=== PATIENT | male | born 1950 | race Caucasian/White ===

== ENCOUNTER 2017-02-25 03:29 | Inpatient (IN) | payer OTHER, MEDICAID ==
[2017-02-25] MEDS ORDERED: LASIX IVP ONE ×4 (03:44→04:31)
[2017-02-25] MEDS ORDERED: DUONEB 0.5 MG/3 MG NEB ONE (03:45)
[2017-02-25] MEDS ORDERED: ATIVAN INJ 2 MG VIAL ONE (04:12)
[2017-02-25] MEDS ORDERED: CARDIZEM INJ 50 MG VIAL ONE (04:18)
[2017-02-25] MEDS ORDERED: CARDIZEM INJ 125 MG VIAL ONE (04:19)
[2017-02-25] MEDS ORDERED: NS 100 ML IV 100 ML IV ONE ×2 (04:19→06:51)
[2017-02-25 04:25] VITALS: BMI 57.6
[2017-02-25] MEDS ORDERED: CARDIZEM INJ 50 MG VIAL IVP ONE ×2 (04:27→04:32)
[2017-02-25] MEDS ORDERED: ATIVAN INJ 2 MG VIAL IVP ONE (04:29)
--- NOTE | 2017-02-25 04:29 | RAD ---
EXAM: Chest X-ray INDICATION: Respiratory distress COMPARISION: Prior exam from August 18, 2016 TECHNIQUE: Single view FINDINGS: Areas of alveolar consolidation prominent interstitial markings are seen predominately in the lung b ases. A left pleural effusion is suspected. No pneumothorax. The cardiac silhouette is mildly enlarg ed and there central vascular congestion. The regional skeleton is intact. IMPRESSION: There is mild cardiomegaly and central vascular congestion. There is bibasilar edema and left pleura l effusion is suspected. Findings are consistent with congestive heart failure. Reported By:
[2017-02-25] MEDS: CARDIZEM INJ 125 MG VIAL 125 MG in NS 100 ML IV 100 ML IV PRN ×2 (04:30→13:59)
[2017-02-25 04:38] LABS: BILIRUBIN,URINE NEGATIVE (NEGATIVE); BLOOD/HEMOGLOBIN,URINE 1+ (NEGATIVE); GLUCOSE, URINE 1+ (NEGATIVE); KETONES,URINE NEGATIVE (NEGATIVE); LEUKOCYTE ESTERASE ,URINE NEGATIVE (NEGATIVE); NITRITES,URINE NEGATIVE (NEGATIVE); PROTEIN,URINE 3+ (NEGATIVE); UROBILINOGEN,URINE NORMAL (NORMAL)
--- NOTE | 2017-02-25 04:42 | DR.GENAD ---
HPI - HPI Comment HPI Comment: HISTORY BELOW. - Complaint/Symptoms Chief Complaint Doctors Comments: PATIENT HAVE COPD AND CHF. TONIGHT MEDS TAKEN NOT HELPING. NO FEVER. HAVE SLIGHT PRODUCTIVE COUGH. PATIENTS CONDITION IS CRITICAL. Chief Complaint:: HERE FROM [facility] IN SEVERE RESPIRATORY DISTRESS AND CYANOTIC. SYMTOMS NOTED TONIGHT. THIS IS CHIEF COMPLAINT. - Nurses notes reviewed Nurses Notes Review: Yes - Source History Provided: Patient, Residential - Mode of Arrival Mode of Arrival: Wheelchair - Timing Came on: Suddenly - Duration Duration: Constant Duration: Hours - Severity Severity: Severe PMH - PMH Past Medical History: Angina, Anxiety, Arthritis, CHF, COPD, Coronary Artery Disease, Depression, Diabetes, Hypertension, Hypothyroidism Past Surgical History: No - Family History Family Medical History: Diabetes Mellitus, Cancer, [place] - Social History Do you use any recreational Drugs:: No ROS - Review of Systems Constitutional: Diaphoresis, Weakness, Fatigue. negative: Chills, Fever Eyes: No Symptoms Reported. negative: Eye Pain, Discharge ENTM: negative: Ear Pain, Nose Discharge, Nose Congestion, Throat Pain Respiratoy: Productive Cough, Short of Breath, Wheezing, Hemoptysis Cardiovascular: Chest Pain, Edema, Palpitations, Cyanosis Gastrointestinal/Abdominal: Nausea, Vomiting. negative: Abdominal Pain Genitourinary: negative: Dysuria, Frequency, Hematuria Neurological: Anxiety, Headache, Weakness, Dizziness Musculoskeletal: Back Pain, Chest wall, Back Integumentary: Other (DIAPHORETIC) Hematologic/Lymphatic: Easy Bleeding, Easy Bruising Endocrine: No Symptoms Reported All Other Systems: Reviewed and Negative PE - Vital Signs Vitals: Temperature 98.3 F Pulse Rate [Left Brachial] 131 Pulse Rate 161 Respiratory Rate 32 Blood Pressure [Left Arm] 130/67 Blood Pressure [Right Arm] 144/66 Blood Pressure 140/96 O2 Sat by Pulse Oximetry 98 - General Limitations: No Limitations General Appearance: Alert, Anxious, In Distress - Head Head Exam: Normal Inspection - Eyes Eye exam: PERRL - ENT ENT Exam: Normal External Ear Exam External Ear Exam: Auricular Hematoma TM/Canal Exam: Bilateral Normal Nose Exam: Normal Nose Exam Mouth Exam: Normal Inspection Throat Exam: Normal Inspection - Neck Neck Exam: Trachea Midline. negative: Tenderness, Meningismus, Lymphadenopathy - Chest Chest Inspection: Tenderness - Respiratory Respiratory Exam: Prolonged Expiratory Phase, Respiratory Distress Respiratory Exam: Bilateral Wheezing, Bilateral Rales, Bilateral Rhonchi, Upper Wheezing, Upper Rhonchi, Lower Wheezing, Lower Rales, Lower Rhonchi - Cardiovascular Cardiovascular Exam: Regular Rate - Abdominal Exam Abdominal Exam: Normal Bowel Sounds, Soft. negative: Tenderness - Extremities Extremities Exam: Edema - Neurologic Neurological Exam: Alert, Oriented X3 - Psychiatric Psychiatric Exam: Anxious - Skin Skin Exam: Cyanosis, Erythema MDM - Additional Information Additional Information Obtained From: W[employer] Work[employer] (FROM [facility]) - Differential Diagnosis Differential Diagnosis: CHF, PNEUMONIA, PULMONARY EDEMA SEPSIS, PULMONARY EMBOLISM Course - Treatment Treatment: SEE ORDERS - Reevaluation 1st: Improved - Consultation Consultation Comments: DISCUSS PATIENT WITH DR. CONCEPCION. HE WILL ADMIT PATIENT - Education/Counseling Education/Counseling: Patient, Education Educated On: Treatment, Diagnosis ROR - Labs Reviewed Laboratory Results Reviewed?: Yes Result Diagrams: 02/25/17 04:15 02/25/17 04:15 Laboratory: WBC 21.2 X10^3/uL (3.6-10.0) H* 02/25/17 04:15 RBC 4.94 X10^6/uL (4.7-6.0) 02/25/17 04:15 Hgb 13.3 g/dL (13.5-18.0) L 02/25/17 04:15 Hct 39.9 % (42.0-54.0) L 02/25/17 04:15 MCV 80.7 fL (80.0-100.0) 02/25/17 04:15 MCH 26.9 pg (27.0-34.0) L 02/25/17 04:15 MCHC 33.3 g/dL (33.0-35.0) 02/25/17 04:15 RDW 15.4 % (11.6-16.5) 02/25/17 04:15 Plt Count 163 X10^3/uL (150.0-450.0) 02/25/17 04:15 Plt Count Comment Adequate (ADEQUATE) 02/25/17 04:15 MPV 10.3 fL (7.4-11.0) 02/25/17 04:15 Neut % 84.6 % (42.0-75.0) H 02/25/17 04:15 Lymph % 6.1 % (21.0-51.0) L 02/25/17 04:15 [place] % 8.1 % (0.0-13.0) 02/25/17 04:15 Eos % 0.7 % (0.9-2.9) L 02/25/17 04:15 Baso % 0.5 % (0.2-1.0) 02/25/17 04:15 Neut # 17.9 x10^3/uL (2.2-4.8) H 02/25/17 04:15 Lymph # 1.3 X10^3/uL (1.3-2.9) 02/25/17 04:15 [place] # 1.7 x10^3/uL (0.3-0.8) H 02/25/17 04:15 Eos # 0.1 x10^3/uL (0.0-0.2) 02/25/17 04:15 Baso # 0.1 X10^3/uL (0.0-0.1) 02/25/17 04:15 Absolute Nucleated RBC 0.1 /100WBC 02/25/17 04:15 Total Counted 100 02/25/17 04:15 Neutrophils % (Manual) 55 % (39-76) 02/25/17 04:15 Band Neutrophils % 27 % (0-10) H 02/25/17 04:15 Lymphocytes % (Manual) 15 % (13-43) 02/25/17 04:15 Monocytes % (Manual) 3 % (4-9) L 02/25/17 04:15 Plt Morphology Comment Normal (NORMAL) 02/25/17 04:15 RBC Morphology Normal (NORMAL) 02/25/17 04:15 Sample Site L rad 02/25/17 04:10 ABG pH 7.390 (7.35-7.45) 02/25/17 04:10 ABG pCO2 40.0 mmHg (35.0-45.0) 02/25/17 04:10 ABG pO2 195.0 mmHg (80.0-100.0) H 02/25/17 04:10 ABG HCO3 24.2 mmol/L (22-26) 02/25/17 04:10 ABG O2 Saturation 100.0 % (90-100) 02/25/17 04:10 ABG Base Excess -0.7 mmol/L (-2.0-2.0) 02/25/17 04:10 Enrique Test Pos 02/25/17 04:10 A-a Gradient 468.0 mmHg 02/25/17 04:10 FiO2 100.000 02/25/17 04:10 Blood Gas Comments Vida well, afh 02/25/17 04:10 Sodium 131 mmol/L (136-145) L 02/25/17 04:15 Corrected Sodium 136 mmol/L (136-145) 02/25/17 04:15 Potassium 4.7 mmol/L (3.5-5.1) 02/25/17 04:15 Chloride 96 mmol/L (98-107) L 02/25/17 04:15 Carbon Dioxide 22.2 mmol/L (21-32) 02/25/17 04:15 BUN 19 mg/dL (7-18) H 02/25/17 04:15 Creatinine 1.01 mg/dL (0.70-1.30) 02/25/17 04:15 Est GFR (MDRD) Af Amer > 60 (>60) 02/25/17 04:15 Est GFR (MDRD) Non-Af > 60 (>60) 02/25/17 04:15 Glucose 313 mg/dL (65-99) H 02/25/17 04:15 Lactic Acid 3.0 mmol/L (0.4-2.0) H 02/25/17 05:08 Calcium 10.0 mg/dL (8.5-10.1) 02/25/17 04:15 Corrected Calcium TNP 02/25/17 04:15 Total Bilirubin 0.70 mg/dL (0.2-1.0) 02/25/17 04:15 AST 23 Units/L (15-37) 02/25/17 04:15 ALT 25 Units/L (12-78) 02/25/17 04:15 Alkaline Phosphatase 112 Units/L (46-116) 02/25/17 04:15 Creatine Kinase 149 Units/L (39-308) 02/25/17 04:15 CK-MB (CK-2) 1.0 ng/mL (0-4.0) 02/25/17 04:15 CK/CKMB % Calc 0.7 % (<4) 02/25/17 04:15 Troponin I 0.02 ng/mL (0-1.5) 02/25/17 04:15 B-Natriuretic Peptide 192 pg/mL (0-79) H 02/25/17 04:15 Total Protein 9.1 g/dL (6.4-8.2) H 02/25/17 04:15 Albumin 3.8 g/dL (3.4-5.0) 02/25/17 04:15 Globulin 5.3 g/dL (2.5-4.5) H 02/25/17 04:15 Albumin/Globulin Ratio 0.7 Ratio (1.1-2.1) L 02/25/17 04:15 Specimen Type Catherized urine 02/25/17 04:30 Urine Color Yellow (YELLOW) 02/25/17 04:30 Urine Appearance Clear (CLEAR) 02/25/17 04:30 Urine pH 5.0 (5.0 - 8.0) 02/25/17 04:30 Ur Specific [place] 1.020 (1.000-1.030) 02/25/17 04:30 Urine Protein 3+ (NEGATIVE) 02/25/17 04:30 Urine Glucose (UA) 1+ (NEGATIVE) 02/25/17 04:30 Urine Ketones Negative (NEGATIVE) 02/25/17 04:30 Urine Occult Blood 1+ (NEGATIVE) 02/25/17 04:30 Urine Nitrite Negative (NEGATIVE) 02/25/17 04:30 Urine Bilirubin Negative (NEGATIVE) 02/25/17 04:30 Urine Urobilinogen Normal (NORMAL) 02/25/17 04:30 Ur Leukocyte Esterase Negative (NEGATIVE) 02/25/17 04:30 Urine RBC 0-2 /HPF (NEGATIVE) 02/25/17 04:30 Urine WBC 0-2 /HPF (NEGATIVE) 02/25/17 04:30 Ur Squamous Epith Cells Rare /HPF (NEGATIVE) 02/25/17 04:30 Urine Bacteria Trace /HPF (NEGATIVE) 02/25/17 04:30 Ur Culture Indicated? No/not indicated 02/25/17 04:30 Stool Description Fob 02/25/17 06:25 Stl Occult Blood (IFOB) Positive (NEGATIVE) A 02/25/17 06:25 Acetone, Semi-Quant Negative (NEGATIVE) 02/25/17 05:08 - XRAY XRAY Interpreted by: Radiologist XRAY Findings: REPORT DISCUSS WITH PATIENT - EKG Rhythm: Afib (RVR EKG NOTED) - Diagnosis Discharge Problem: Atrial fibrillation with RVR CHF (congestive heart failure) Qualifiers: Congestive heart failure type: combined Congestive heart failure chronicity: acute Qualified Code(s): I50.41 - Acute combined systolic (congestive) and diastolic (congestive) heart failure Pneumonia Qualifiers: Pneumonia type: due to unspecified organism Laterality: unspecified laterality Lung location: lower lobe of lung Qualified Code(s): J18.1 - Lobar pneumonia, unspecified organism GI bleeding Qualifiers: GI bleed type/associated pathology: melena Qualified Code(s): K92.1 - Melena - Discharge Plan Disposition: 09 ADMITTED INPATIENT Condition: Stable - Follow ups/Referrals - Instructions
[2017-02-25 04:43] LABS: BASOPHILS # (AUTO) 0.1 X10^3/uL (0.0-0.1); BASOPHILS % (AUTO) 0.5 % (0.2-1.0); EOSINOPHILS # (AUTO) 0.1 x10^3/uL (0.0-0.2); EOSINOPHILS % (AUTO) 0.7 % (0.9-2.9); HEMATOCRIT 39.9 % (42.0-54.0); HEMOGLOBIN 13.3 g/dL (13.5-18.0); LYMPHOCYTES # (AUTO) 1.3 X10^3/uL (1.3-2.9); LYMPHOCYTES % (AUTO) 6.1 % (21.0-51.0); MEAN CORPUSCULAR HEMOGLOBIN 26.9 pg (27.0-34.0); MEAN CORPUSCULAR HGB CONC 33.3 g/dL (33.0-35.0); MEAN CORPUSCULAR VOLUME 80.7 fL (80.0-100.0); MEAN PLATELET VOLUME 10.3 fL (7.4-11.0); MONOCYTES # (AUTO) 1.7 x10^3/uL (0.3-0.8); MONOCYTES % (AUTO) 8.1 % (0.0-13.0); NEUTROPHILS # (AUTO) 17.9 x10^3/uL (2.2-4.8); NEUTROPHILS % (AUTO) 84.6 % (42.0-75.0); PLATELET COUNT 163 X10^3/uL (150.0-450.0); RED BLOOD COUNT 4.94 X10^6/uL (4.7-6.0); RED CELL DISTRIBUTION WIDTH 15.4 % (11.6-16.5)
[2017-02-25 04:45] LABS: WHITE BLOOD COUNT 21.2 X10^3/uL (3.6-10.0)
[2017-02-25 04:47] LABS: BLOOD UREA NITROGEN 19 mg/dL (7-18); CARBON DIOXIDE 22.2 mmol/L (21-32); CHLORIDE 96 mmol/L (98-107); COR NA(FOR HYPERGLY) 136 mmol/L (136-145); CREATININE 1.01 mg/dL (0.70-1.30); GLUCOSE 313 mg/dL (65-99); SODIUM 131 mmol/L (136-145); TROPONIN I 0.02 ng/mL (0-1.5); eGFR BLACK RACES > 60 (>60); eGFR NON BLACK RACES > 60 (>60)
[2017-02-25 04:52] LABS: ALANINE AMINOTRANSFERASE 25 Units/L (12-78); ALBUMIN 3.8 g/dL (3.4-5.0); ALKALINE PHOSPHATASE 112 Units/L (46-116); ASPARTATE AMINO TRANSFERASE 23 Units/L (15-37); CKMB % 0.7 % (<4); CREATINE KINASE 149 Units/L (39-308); TOTAL PROTEIN 9.1 g/dL (6.4-8.2)
[2017-02-25 04:56] LABS: B-TYPE NATRIURETIC PEPTIDE 192 pg/mL (0-79)
[2017-02-25 04:57] LABS: APPEARANCE,URINE CLEAR (CLEAR); BACTERIA,URINE TRACE /HPF (NEGATIVE); COLOR,URINE YELLOW (YELLOW); RBC,URINE 0-2 /HPF (NEGATIVE); SQUAMOUS EPITHELIAL CELL,UR RARE /HPF (NEGATIVE)
[2017-02-25 05:05] LABS: BAND NEUTROPHILS % 27 % (0-10)
[2017-02-25 05:06] LABS: PLATELET MORPHOLOGY COMMENT NORMAL (NORMAL)
[2017-02-25 05:13] LABS: ABG BASE EXCESS -0.7 mmol/L (-2.0-2.0); ABG HCO3 24.2 mmol/L (22-26)
[2017-02-25 05:14] LABS: ABG ALLEN TEST POS
[2017-02-25] MEDS ORDERED: ROCEPHIN VIAL 1 GM 1 GM in NS 50 ML IV + SPIKE MINIBAG* 50 ML IV ONE (05:28)
[2017-02-25] MEDS ORDERED: NS 50 ML IV + SPIKE MINIBAG* 50 ML IV ONE (05:30)
[2017-02-25] MEDS ORDERED: ROCEPHIN VIAL 1 GM ONE (05:30)
[2017-02-25] MEDS ORDERED: PROTONIX INJ 40 MG VIAL ONE (06:51)
[2017-02-25] MEDS ORDERED: NS 250 ML IV 0 ML IV ONE (06:57)
[2017-02-25] MEDS: PROTONIX INJ 40 MG VIAL 80 MG in NS 100 ML IV 80 ML IV SCH ×3 (07:01→17:11)
[2017-02-25] MEDS ORDERED: AMARYL TAB 4 MG PO SCH (09:00)
[2017-02-25] MEDS ORDERED: K-DUR TAB 20 MEQ PO SCH (09:00)
[2017-02-25] MEDS ORDERED: PATIENT'S HOME MEDICATION (Citalopram Hydrobromide [Celexa 10 Mg] 10 MG) PO SCH (09:00)
[2017-02-25] MEDS ORDERED: PATIENT'S HOME MEDICATION (Glimepiride [Glimepiride 2 Mg] 2 MG) PO SCH (09:00)
[2017-02-25] MEDS ORDERED: ROCEPHIN VIAL 1 GM 1 GM in NS 50 ML IV + SPIKE MINIBAG* 50 ML IV SCH (09:00)
[2017-02-25] MEDS ORDERED: ROXICODONE TAB 15 MG PO SCH (09:00)
[2017-02-25] MEDS ORDERED: PATIENT'S HOME MEDICATION (Metformin Hcl [Metformin Hcl] 1,000 MG) PO SCH (09:00)
[2017-02-25 09:04] LABS: HEMATOCRIT 36.6 % (42.0-54.0); HEMOGLOBIN 12.1 g/dL (13.5-18.0)
[2017-02-25 09:27] LABS: CKMB % 2.4 % (<4); CREATINE KINASE 42 Units/L (39-308); CREATINE KINASE MB < 1.0 ng/mL (0-4.0); TROPONIN I 0.08 ng/mL (0-1.5)
[2017-02-25] MEDS: CELEXA PO SCH (09:58)
[2017-02-25] MEDS: LASIX IVP SCH ×2 (10:00→20:42)
[2017-02-25] MEDS: LANOXIN PO SCH (10:00)
[2017-02-25] MEDS ORDERED: PATIENT'S HOME MEDICATION (Potassium Chloride [Potassium Chloride] 20 MEQ) PO SCH (10:00)
[2017-02-25] MEDS: LEVAQUIN PREMIX IV 750 MG 750 MG/150 ML BAG IV SCH (10:01)
[2017-02-25] MEDS: CORDARONE TAB 200 MG PO SCH (10:04)
[2017-02-25] MEDS: SYNTHROID 88 mcg TAB PO SCH (10:12)
[2017-02-25] MEDS: FORTAZ or TAZICEF INJ 1 GM in NS 50 ML IV + SPIKE MINIBAG* 50 ML IV SCH ×3 (10:53→21:20)
[2017-02-25] MEDS: MAGNESIUM SULFATE 1 GM/100 mL PREMIX 1 GM/100 ML BAG IV SCH ×2 (11:27→12:30)
[2017-02-25] MEDS: HumuLIN R SC SCH ×3 (11:55→20:42)
[2017-02-25 14:06] LABS: HEMATOCRIT 35.4 % (42.0-54.0)
[2017-02-25 15:22] LABS: CKMB % 2.3 % (<4); CREATINE KINASE 44 Units/L (39-308); CREATINE KINASE MB < 1.0 ng/mL (0-4.0); TROPONIN I 0.06 ng/mL (0-1.5)
[2017-02-25] MEDS: GLUCOPHAGE PO SCH (16:55)
[2017-02-25 17:05] LABS: HEMATOCRIT 33.8 % (42.0-54.0); HEMOGLOBIN 11.3 g/dL (13.5-18.0)
[2017-02-25] MEDS: ROXICODONE TAB 15 MG PO SCH (20:43)
[2017-02-25] MEDS: AMARYL TAB 4 MG PO SCH (20:44)
[2017-02-25 20:46] LABS: HEMATOCRIT 34.9 % (42.0-54.0); HEMOGLOBIN 11.8 g/dL (13.5-18.0)
--- NOTE | 2017-02-25 21:20 | DR.H&P ---
H&P - History & Physical for Day of: H&P Date: 02/25/17 - Chief Complaint Chief Complaint: shortness of breath - Allergies Allergies/Adverse Reactions: Allergies Allergy/AdvReac Type Severity Reaction Status Date / Time SHRIMP Allergy Uncoded 02/25/17 04:23 - History of Present Illness History of Present Illness: Patient is a 66yo male who presented to the emergency room with complaints of shortness of breath, patient was brought from [facility] in respiratory distress and cyanotic. Patient has a history of congestive heart failure, COPD, Angina, Anxiety, Arthritis, CAD, Depression, Diabetes Mellitus type 2, hypertension and hypothyroidism. Upon arrival to the emergency room patient vital signs 98.3, 161, 36, 86 on NC, 140/96. Labs on arrival within normal limits with the exception of WBC 21.2, Hgb 13.3, Hct 39.9, MCH 26.9, Neut% 84.6, Lymph% 6.1, eos% 0.7, Neut# 17.9, [place]# 1.7, Band neutrophils % 27, Monocyte % Manual 3, INR 2.60, PTT 40.0, Sodium 131, Chloride 96, BUN 19, Glucose 313, Lactic acid 3.0, Magnesium 1.1, BNP 192, total protein 9.1, globulin 5.3, Albumin/globulin ratio 0.7. Stool positive for occult blood, Digoxin 0.83. Chest xray showed there is mild cardiomegaly and central vascular congestion, there is bibasilar edema and left pleural effusion is suspected, findings are consistent with congestive heart failure. EKG showed Atrial fibrillation with a rate of 167 and right bundle branch block. Patient given a cardizem bolus of 40mg and started on Cardizem drip, Lasix 80mg IV and ativan given in ER. Patient admitted with CHF, A-Fib with RVR, pneumonia and GI Bleed started on Cardizem drip , IV Leavquin and rocephin, protonix drip, Lasix 40mg IV BID. Upon rounds this am patient sitting on side of bed, with shortness of breath, patient continues on Cardizem drip with atrial fibrillation and rate of 121. We are going to start patient on BI-Pap, discontinue rocephin and start fortaz and give mag rider x 2gm. Home medications resumed with the exception of Plavix, Mobic, Lisinopril, Coumadin, coreg. We will continue to monitor patient and follow up with repeat labs and CXR in am. - Past Medical History Past Medical History: Angina, Anxiety, Arthritis, CHF, COPD, Coronary Artery Disease, Depression, Diabetes, Hypertension, Hypothyroidism Additional Medical History: Paroxysmal Nocturnal Dyspnea, Muscle Weakness, Back Pain, Knee Pain - Past Surgical History Surgical History: Unknown Additional Surgical History: HEART CATHETERIZATION X 2 - Family History Family Medical History: Diabetes Mellitus, Cancer, [place] - Social History Does patient currently use any type of tobacco product: No Have you used tobacco products in the last 12 months: No Type of Tobacco Use: None Does any household member use tobacco: No Alcohol Use: None Drug Use: None - Medications Home Medications: Alprazolam [Alprazolam] 0.25 mg PO DAILY PRN 02/25/17 [History Confirmed ] Amiodarone HCl 200 mg PO DAILY 02/25/17 [History Confirmed 02/25/17] Carvedilol [Carvedilol] 12.5 mg PO BID 02/25/17 [History Confirmed 02/25/17] Citalopram Hydrobromide [Celexa 10 mg] 10 mg PO DAILY 02/25/17 [History Confirmed 02/25/17] Clopidogrel Bisulfate [PLAVIX TAB 75 MG *] 75 mg PO DAILY 02/25/17 [History Confirmed 02/25/17] Digoxin [LANOXIN TAB 0.125 MG *] 250 mcg PO DAILY 02/25/17 [History Confirmed ] Glimepiride [Glimepiride 2 mg] 2 mg PO BID 02/25/17 [History Confirmed 02/25/17] Levothyroxine Sodium [SYNTHROID 88 mcg *] 88 mcg PO DAILY 02/25/17 [History Confirmed 02/25/17] Lisinopril 10 mg PO BID 02/25/17 [History Confirmed 02/25/17] Meloxicam [Mobic] 7.5 mg PO DAILY 02/25/17 [History Confirmed 02/25/17] Metformin HCl 1,000 mg PO BID 02/25/17 [History Confirmed 02/25/17] Oxycodone HCl [ROXICODONE TAB 15 MG (PLAIN) *] 15 mg PO BID 02/25/17 [History Confirmed 02/25/17] Potassium Chloride 20 meq PO DAILY 02/25/17 [History Confirmed 02/25/17] Warfarin Sodium [COUMADIN 3 MG *] 3 mg PO HS 02/25/17 [History Confirmed ] - Review of Systems Constitutional: Weakness Eyes: No Symptoms Reported ENT: No Symptoms Reported Respiratory: Cough, Shortness of Breath, SOB with Excertion Cardiovascular: Palpitations Gastrointestinal: No Symptoms Reported Genitourinary: No Symptoms Reported Musculoskeletal: No Symptoms Reported Skin: No Symptoms Reported Neurological: Weakness - Physical Exam Vital Signs: 98.3, 161, 36, 86 on NC, 140/96 Oriented: Normal Eyes: Normal Ear: Normal Nose: Normal Throat: Normal Respiratory: Rhonchi Throughout, Rales Throughout Cardiovascular: Tachycardia, Irregular : Normal Auscultation: Bowel Sounds: Normal Palpation: Normal Tenderness: Normal Skin: Decreased [place] Musculoskeletal: Normal Psychiatric: Anxiety Mood Description: Calm, Appropriate Affect: Anxious Speech Pattern: Clear, Appropriate - Assessment/Plan (1) Atrial fibrillation with RVR Status: Acute Plan: cardizem drip (2) CHF (congestive heart failure) Qualifiers: Congestive heart failure type: combined Congestive heart failure chronicity : acute Qualified Code(s): I50.41 - Acute combined systolic (congestive) and diastolic (congestive) heart failure Status: Acute Plan: lasix IV, BiPAP (3) GI bleeding Qualifiers: GI bleed type/associated pathology: melena Gastritis type: G Qualified Code(s): K92.1 - Melena Status: Acute Plan: protnix drip (4) Pneumonia Qualifiers: Pneumonia type: due to unspecified organism Aspiration pneumonia type: A Laterality: unspecified laterality Lung location: lower lobe of lung Qualified Code(s): J18.1 - Lobar pneumonia, unspecified organism Status: Acute Plan: pneumonia protocol, nebulizer, levaquin and fortaz IV
[2017-02-26] MEDS: PROTONIX INJ 40 MG VIAL 80 MG in NS 100 ML IV 80 ML IV SCH (04:14)
[2017-02-26] MEDS ORDERED: GLUCOPHAGE ONE ×2 (05:59→18:14)
[2017-02-26] MEDS: HumuLIN R SC SCH ×4 (06:03→22:01)
[2017-02-26] MEDS: FORTAZ or TAZICEF INJ 1 GM in NS 50 ML IV + SPIKE MINIBAG* 50 ML IV SCH ×3 (06:04→22:00)
[2017-02-26] MEDS: GLUCOPHAGE PO SCH ×2 (06:05→18:13)
[2017-02-26 06:15] LABS: BASOPHILS # (AUTO) 0.1 X10^3/uL (0.0-0.1); BASOPHILS % (AUTO) 0.4 % (0.2-1.0); EOSINOPHILS # (AUTO) 0.2 x10^3/uL (0.0-0.2); EOSINOPHILS % (AUTO) 1.4 % (0.9-2.9); HEMOGLOBIN 11.3 g/dL (13.5-18.0); LYMPHOCYTES # (AUTO) 1.5 X10^3/uL (1.3-2.9); LYMPHOCYTES % (AUTO) 10.4 % (21.0-51.0); MEAN CORPUSCULAR HEMOGLOBIN 26.8 pg (27.0-34.0); MEAN CORPUSCULAR HGB CONC 34.3 g/dL (33.0-35.0); MEAN CORPUSCULAR VOLUME 78.2 fL (80.0-100.0); MEAN PLATELET VOLUME 9.7 fL (7.4-11.0); MONOCYTES % (AUTO) 13.6 % (0.0-13.0); NEUTROPHILS # (AUTO) 10.8 x10^3/uL (2.2-4.8); NEUTROPHILS % (AUTO) 74.2 % (42.0-75.0); PLATELET COUNT 137 X10^3/uL (150.0-450.0); RED BLOOD COUNT 4.23 X10^6/uL (4.7-6.0); RED CELL DISTRIBUTION WIDTH 15.7 % (11.6-16.5); WHITE BLOOD COUNT 14.5 X10^3/uL (3.6-10.0)
[2017-02-26 06:38] LABS: ALANINE AMINOTRANSFERASE 21 Units/L (12-78); ALBUMIN 3.1 g/dL (3.4-5.0); ALKALINE PHOSPHATASE 75 Units/L (46-116); ASPARTATE AMINO TRANSFERASE 15 Units/L (15-37); BLOOD UREA NITROGEN 32 mg/dL (7-18); CALCIUM 9.8 mg/dL (8.5-10.1); CARBON DIOXIDE 29.1 mmol/L (21-32); CHLORIDE 96 mmol/L (98-107); COR CA(FOR HYPOALB) 10.5 mg/dL (8.5-10.1); COR NA(FOR HYPERGLY) 136 mmol/L (136-145); CREATININE 1.03 mg/dL (0.70-1.30); GLUCOSE 224 mg/dL (65-99); SODIUM 133 mmol/L (136-145); TOTAL PROTEIN 7.9 g/dL (6.4-8.2); eGFR BLACK RACES > 60 (>60); eGFR NON BLACK RACES > 60 (>60)
--- NOTE | 2017-02-26 07:49 | RAD ---
HISTORY: shortness of breath Study: Portable AP chest Comparison: 02/25/2017 Findings: The heart is normal. The pulmonary vessels are slightly less prominent centrally . There is hazy bib asilar interstitial prominence which is decreased. The lungs are hyperinflated and emphysematous wit h chronic interstitial changes throughout. No effusion is seen. IMPRESSION: Slowly resolving pulmonary edema. Chronic obstructive lung changes with slowly resolving bibasilar interstitial prominence Reported By:
[2017-02-26] MEDS ORDERED: MICRO K EXTEN CAP 10 MEQ PO SCH (09:00)
[2017-02-26] MEDS: LEVAQUIN PREMIX IV 750 MG 750 MG/150 ML BAG IV SCH (09:53)
[2017-02-26] MEDS: ROXICODONE TAB 15 MG PO SCH ×2 (09:53→21:59)
[2017-02-26] MEDS: LASIX IVP SCH ×2 (09:53→22:00)
[2017-02-26] MEDS: CELEXA PO SCH (09:54)
[2017-02-26] MEDS: SYNTHROID 88 mcg TAB PO SCH (09:55)
[2017-02-26] MEDS: LANOXIN PO SCH (09:55)
[2017-02-26] MEDS: CORDARONE TAB 200 MG PO SCH (09:56)
[2017-02-26] MEDS: K-DUR TAB 20 MEQ PO SCH (09:56)
[2017-02-26] MEDS: AMARYL TAB 4 MG PO SCH ×2 (09:57→21:59)
--- NOTE | 2017-02-26 15:42 | PCM.PROG ---
Progress Note - Progress Note for Day of Date: 02/26/17 - Subjective Subjective: Patient is a 66-year-old white male who was admitted from the emergency room, patient is a resident of [address] [place] [address] Ghotra. Patient presented in respiratory distress. Patient has a history of COPD and CHF. On admission patient's white count was elevated at 21.2. Improved to 14.5 this a.m. Patient's EKG on admission revealed A. fib with RVR. Patient was started on a Cardizem drip, rate stable this am 90's. And treated with IV Lasix. Patient is treated for pneumonia with IV Levaquin and Rocephin, plan to continue IV antibiotics repeat a.m. labs and chest x-ray. Continue Cardizem drip supplemental O2 therapy BP and lipid control and telemetry. Patient is on anticoagulant therapy with Coumadin we will monitor Inr. - Past Medical Family Social History Allergies: Allergies SHRIMP Allergy (Uncoded 02/25/17 04:23) - Review of Systems ROS: No change since H&P - Vital Signs and I&O's Vital Signs: Temperature 98.0 F Pulse Rate [Left Brachial] 82 Pulse Rate 88 Respiratory Rate 16 Blood Pressure [Left Arm] 122/60 O2 Sat by Pulse Oximetry 96 Intake and Output: Intake & Output 02/24/17 02/25/17 02/26/17 02/27/17 11:59 11:59 11:59 11:59 Intake Total 5 3431.5 959 Output Total 810 2500 1650 Balance -805 931.5 -691 - Physical Exam Oriented: Normal Eyes: Normal Ear: Normal Nose: Normal Throat: Normal Respiratory: Diminished Cardiovascular: Tachycardia, Irregular, Edema (+2 bilateral lower extremities) : Normal Auscultation: Bowel Sounds: Normal Tenderness: Normal Skin: Red (mild redness to bilateral lower extremitieswe initiated. I'll just check with the pharmacy if not it'll be later next week before he can continue on Wednesday 6 hours is the best of the reviewsI think just check back with), Ecchymosis Musculoskeletal: Back:Thoracic, Back:Lumbar Psychiatric: Anxiety Mood Description: Calm, Appropriate Affect: Anxious Speech Pattern: Clear, Appropriate - Laboratory and Diagnostics Result Diagrams: 02/26/17 05:31 02/26/17 05:31 Labs: 02/26/17 11:18 Sputum - Expectorated Sputum - Final Laboratory WBC 14.5 X10^3/uL (3.6-10.0) H 02/26/17 05:31 RBC 4.23 X10^6/uL (4.7-6.0) L 02/26/17 05:31 Hgb 11.3 g/dL (13.5-18.0) L 02/26/17 05:31 Hct 33.0 % (42.0-54.0) L 02/26/17 05:31 MCV 78.2 fL (80.0-100.0) L 02/26/17 05:31 MCH 26.8 pg (27.0-34.0) L 02/26/17 05:31 MCHC 34.3 g/dL (33.0-35.0) 02/26/17 05:31 RDW 15.7 % (11.6-16.5) 02/26/17 05:31 Plt Count 137 X10^3/uL (150.0-450.0) L 02/26/17 05:31 Plt Count Comment Adequate (ADEQUATE) 02/25/17 04:15 MPV 9.7 fL (7.4-11.0) 02/26/17 05:31 Neut % 74.2 % (42.0-75.0) 02/26/17 05:31 Lymph % 10.4 % (21.0-51.0) L 02/26/17 05:31 [place] % 13.6 % (0.0-13.0) H 02/26/17 05:31 Eos % 1.4 % (0.9-2.9) 02/26/17 05:31 Baso % 0.4 % (0.2-1.0) 02/26/17 05:31 Neut # 10.8 x10^3/uL (2.2-4.8) H 02/26/17 05:31 Lymph # 1.5 X10^3/uL (1.3-2.9) 02/26/17 05:31 [place] # 2.0 x10^3/uL (0.3-0.8) H 02/26/17 05:31 Eos # 0.2 x10^3/uL (0.0-0.2) 02/26/17 05:31 Baso # 0.1 X10^3/uL (0.0-0.1) 02/26/17 05:31 Absolute Nucleated RBC 0.1 /100WBC 02/26/17 05:31 Total Counted 100 02/25/17 04:15 Neutrophils % (Manual) 55 % (39-76) 02/25/17 04:15 Band Neutrophils % 27 % (0-10) H 02/25/17 04:15 Lymphocytes % (Manual) 15 % (13-43) 02/25/17 04:15 Monocytes % (Manual) 3 % (4-9) L 02/25/17 04:15 Plt Morphology Comment Normal (NORMAL) 02/25/17 04:15 RBC Morphology Normal (NORMAL) 02/25/17 04:15 INR Target Range - 02/25/17 05:08 INR 2.60 (0.8-1.3) H 02/25/17 05:08 PTT 40.0 SECONDS (22.9-36.5) H 02/25/17 05:08 PTT Comment - 02/25/17 05:08 Sample Site L rad 02/25/17 04:10 ABG pH 7.390 (7.35-7.45) 02/25/17 04:10 ABG pCO2 40.0 mmHg (35.0-45.0) 02/25/17 04:10 ABG pO2 195.0 mmHg (80.0-100.0) H 02/25/17 04:10 ABG HCO3 24.2 mmol/L (22-26) 02/25/17 04:10 ABG O2 Saturation 100.0 % (90-100) 02/25/17 04:10 ABG Base Excess -0.7 mmol/L (-2.0-2.0) 02/25/17 04:10 Enrique Test Pos 02/25/17 04:10 A-a Gradient 468.0 mmHg 02/25/17 04:10 FiO2 100.000 02/25/17 04:10 Blood Gas Comments Vida well, afh 02/25/17 04:10 Sodium 133 mmol/L (136-145) L 02/26/17 05:31 Corrected Sodium 136 mmol/L (136-145) 02/26/17 05:31 Potassium 4.0 mmol/L (3.5-5.1) 02/26/17 05:31 Chloride 96 mmol/L (98-107) L 02/26/17 05:31 Carbon Dioxide 29.1 mmol/L (21-32) 02/26/17 05:31 BUN 32 mg/dL (7-18) H 02/26/17 05:31 Creatinine 1.03 mg/dL (0.70-1.30) 02/26/17 05:31 Est GFR (MDRD) Af Amer > 60 (>60) 02/26/17 05:31 Est GFR (MDRD) Non-Af > 60 (>60) 02/26/17 05:31 Glucose 224 mg/dL (65-99) H 02/26/17 05:31 Lactic Acid 3.0 mmol/L (0.4-2.0) H 02/25/17 05:08 Calcium 9.8 mg/dL (8.5-10.1) 02/26/17 05:31 Corrected Calcium 10.5 mg/dL (8.5-10.1) H 02/26/17 05:31 Magnesium 1.1 mg/dL (1.7-2.9) L 02/25/17 04:15 Total Bilirubin 0.70 mg/dL (0.2-1.0) 02/26/17 05:31 AST 15 Units/L (15-37) 02/26/17 05:31 ALT 21 Units/L (12-78) 02/26/17 05:31 Alkaline Phosphatase 75 Units/L (46-116) 02/26/17 05:31 Creatine Kinase 44 Units/L (39-308) 02/25/17 14:40 CK-MB (CK-2) < 1.0 ng/mL (0-4.0) 02/25/17 14:40 CK/CKMB % Calc 2.3 % (<4) 02/25/17 14:40 Troponin I 0.06 ng/mL (0-1.5) 02/25/17 14:40 B-Natriuretic Peptide 192 pg/mL (0-79) H 02/25/17 04:15 Total Protein 7.9 g/dL (6.4-8.2) 02/26/17 05:31 Albumin 3.1 g/dL (3.4-5.0) L 02/26/17 05:31 Globulin 4.8 g/dL (2.5-4.5) H 02/26/17 05:31 Albumin/Globulin Ratio 0.6 Ratio (1.1-2.1) L 02/26/17 05:31 Specimen Type Catherized urine 02/25/17 04:30 Urine Color Yellow (YELLOW) 02/25/17 04:30 Urine Appearance Clear (CLEAR) 02/25/17 04:30 Urine pH 5.0 (5.0 - 8.0) 02/25/17 04:30 Ur Specific [place] 1.020 (1.000-1.030) 02/25/17 04:30 Urine Protein 3+ (NEGATIVE) 02/25/17 04:30 Urine Glucose (UA) 1+ (NEGATIVE) 02/25/17 04:30 Urine Ketones Negative (NEGATIVE) 02/25/17 04:30 Urine Occult Blood 1+ (NEGATIVE) 02/25/17 04:30 Urine Nitrite Negative (NEGATIVE) 02/25/17 04:30 Urine Bilirubin Negative (NEGATIVE) 02/25/17 04:30 Urine Urobilinogen Normal (NORMAL) 02/25/17 04:30 Ur Leukocyte Esterase Negative (NEGATIVE) 02/25/17 04:30 Urine RBC 0-2 /HPF (NEGATIVE) 02/25/17 04:30 Urine WBC 0-2 /HPF (NEGATIVE) 02/25/17 04:30 Ur Squamous Epith Cells Rare /HPF (NEGATIVE) 02/25/17 04:30 Urine Bacteria Trace /HPF (NEGATIVE) 02/25/17 04:30 Ur Culture Indicated? No/not indicated 02/25/17 04:30 Stool Description Fob 02/25/17 06:25 Stl Occult Blood (IFOB) Positive (NEGATIVE) A 02/25/17 06:25 Digoxin 0.83 ng/mL (0.9-2) L 02/25/17 05:08 Acetone, Semi-Quant Negative (NEGATIVE) 02/25/17 05:08 - Plan (1) Atrial fibrillation with RVR Status: Acute Plan: cardizem drip, telemetry, anti coag therapy (2) CHF (congestive heart failure) Status: Acute Qualifiers: Congestive heart failure type: combined Congestive heart failure chronicity : acute Qualified Code(s): I50.41 - Acute combined systolic (congestive) and diastolic (congestive) heart failure Plan: lasix IV, BiPAP, bb. strict I & O (3) GI bleeding Status: Acute Qualifiers: GI bleed type/associated pathology: melena Gastritis type: G Qualified Code(s): K92.1 - Melena Plan: protnix drip (4) Pneumonia Status: Acute Qualifiers: Pneumonia type: due to unspecified organism Aspiration pneumonia type: A Laterality: unspecified laterality Lung location: lower lobe of lung Qualified Code(s): J18.1 - Lobar pneumonia, unspecified organism Plan: pneumonia protocol, nebulizer, levaquin and fortaz IV (5) Chronic back pain Status: Chronic Qualifiers: Back pain location: low back pain Back pain laterality: midline Sciatica presence: with sciatica presence unspecified Sciatica laterality: S Qualified Code(s): M54.5 - Low back pain (6) Diabetes Status: Chronic Qualifiers: Diabetes mellitus type: type 2 Diabetes mellitus complication status: without complication Diabetes mellitus complication detail: D Diabetic retinopathy severity: D Proliferative retinopathy type: P Diabetes mellitus macular edema: D Diabetes mellitus intermediate designer insulin use: without intermediate designer use Laterality: L Chronic kidney disease stage: C Qualified Code(s): E11.9 - Type 2 diabetes mellitus without complications (7) Hypertension Status: Chronic Qualifiers: Hypertension type: essential hypertension Qualified Code(s): I10 - Essential (primary) hypertension (8) Hypothyroidism Status: Chronic Qualifiers: Hypothyroidism type: H
[2017-02-26] MEDS: PriLOSEC PO SCH ×2 (16:25→21:59)
[2017-02-26] MEDS: CARDIZEM INJ 125 MG VIAL 125 MG in NS 100 ML IV 100 ML IV PRN (19:35)
[2017-02-26] MEDS: XANAX PO PRN (21:59)
[2017-02-26] MEDS: PEPCID 20 MG IV PREMIX* 20 MG/50 ML BAG IV SCH (22:00)
[2017-02-27] MEDS: FORTAZ or TAZICEF INJ 1 GM in NS 50 ML IV + SPIKE MINIBAG* 50 ML IV SCH ×3 (06:01→21:43)
[2017-02-27] MEDS: HumuLIN R SC SCH ×4 (06:01→21:42)
[2017-02-27 06:18] LABS: BASOPHILS % (AUTO) 0.3 % (0.2-1.0); EOSINOPHILS # (AUTO) 0.4 x10^3/uL (0.0-0.2); EOSINOPHILS % (AUTO) 4.2 % (0.9-2.9); HEMATOCRIT 49.3 % (42.0-54.0); HEMOGLOBIN 17.1 g/dL (13.5-18.0); LYMPHOCYTES # (AUTO) 1.6 X10^3/uL (1.3-2.9); LYMPHOCYTES % (AUTO) 17.6 % (21.0-51.0); MEAN CORPUSCULAR HEMOGLOBIN 27.4 pg (27.0-34.0); MEAN CORPUSCULAR HGB CONC 34.6 g/dL (33.0-35.0); MEAN CORPUSCULAR VOLUME 79.3 fL (80.0-100.0); MEAN PLATELET VOLUME 10.2 fL (7.4-11.0); MONOCYTES # (AUTO) 0.8 x10^3/uL (0.3-0.8); MONOCYTES % (AUTO) 8.8 % (0.0-13.0); NEUTROPHILS # (AUTO) 6.1 x10^3/uL (2.2-4.8); NEUTROPHILS % (AUTO) 69.1 % (42.0-75.0); PLATELET COUNT 77 X10^3/uL (150.0-450.0); RED BLOOD COUNT 6.22 X10^6/uL (4.7-6.0); RED CELL DISTRIBUTION WIDTH 15.6 % (11.6-16.5); WHITE BLOOD COUNT 8.9 X10^3/uL (3.6-10.0)
[2017-02-27 06:26] LABS: ALANINE AMINOTRANSFERASE 19 Units/L (12-78); ALKALINE PHOSPHATASE 84 Units/L (46-116); ASPARTATE AMINO TRANSFERASE 18 Units/L (15-37); BLOOD UREA NITROGEN 28 mg/dL (7-18); CALCIUM 9.5 mg/dL (8.5-10.1); CARBON DIOXIDE 30.5 mmol/L (21-32); CHLORIDE 98 mmol/L (98-107); COR CA(FOR HYPOALB) 10.3 mg/dL (8.5-10.1); COR NA(FOR HYPERGLY) 138 mmol/L (136-145); CREATININE 0.86 mg/dL (0.70-1.30); GLUCOSE 166 mg/dL (65-99); SODIUM 136 mmol/L (136-145); TOTAL PROTEIN 7.9 g/dL (6.4-8.2); eGFR BLACK RACES > 60 (>60); eGFR NON BLACK RACES > 60 (>60)
[2017-02-27] MEDS ORDERED: GLUCOPHAGE ONE ×2 (08:10→17:35)
--- NOTE | 2017-02-27 08:12 | RAD ---
HISTORY: Pneumonia. Study: Single-view chest. Comparison: February 26, 2017. Findings: The trachea is midline. The cardiac silhouette is enlarged similar to the comparison study. There is mild diffuse interstitial prominence without focal consolidation, pleural effusion or pneumothorax. The bony thorax is grossly unremarkable. IMPRESSION: Cardiomegaly with mild pulmonary vascular congestion similar to the previous day. Reported By:
[2017-02-27] MEDS: CELEXA PO SCH (08:22)
[2017-02-27] MEDS: LANOXIN PO SCH (08:23)
[2017-02-27] MEDS: SYNTHROID 88 mcg TAB PO SCH (08:23)
[2017-02-27] MEDS: K-DUR TAB 20 MEQ PO SCH (08:23)
[2017-02-27] MEDS: AMARYL TAB 4 MG PO SCH ×2 (08:23→21:41)
[2017-02-27] MEDS: PriLOSEC PO SCH ×2 (08:25→21:43)
[2017-02-27] MEDS: CORDARONE TAB 200 MG PO SCH (08:25)
[2017-02-27] MEDS: GLUCOPHAGE PO SCH ×2 (08:26→17:37)
[2017-02-27] MEDS: LASIX IVP SCH ×2 (08:26→21:41)
[2017-02-27] MEDS: PEPCID 20 MG IV PREMIX* 20 MG/50 ML BAG IV SCH ×2 (08:26→21:43)
[2017-02-27] MEDS: LEVAQUIN PREMIX IV 750 MG 750 MG/150 ML BAG IV SCH (08:27)
[2017-02-27] MEDS: ROXICODONE TAB 15 MG PO SCH ×2 (09:13→21:41)
[2017-02-27] MEDS: XANAX PO PRN (21:41)
[2017-02-28 06:06] LABS: BASOPHILS % (AUTO) 0.6 % (0.2-1.0); EOSINOPHILS # (AUTO) 0.3 x10^3/uL (0.0-0.2); HEMATOCRIT 33.2 % (42.0-54.0); HEMOGLOBIN 11.4 g/dL (13.5-18.0); LYMPHOCYTES # (AUTO) 1.6 X10^3/uL (1.3-2.9); LYMPHOCYTES % (AUTO) 19.4 % (21.0-51.0); MEAN CORPUSCULAR HEMOGLOBIN 27.1 pg (27.0-34.0); MEAN CORPUSCULAR HGB CONC 34.4 g/dL (33.0-35.0); MEAN CORPUSCULAR VOLUME 78.8 fL (80.0-100.0); MEAN PLATELET VOLUME 9.6 fL (7.4-11.0); MONOCYTES # (AUTO) 1.3 x10^3/uL (0.3-0.8); MONOCYTES % (AUTO) 15.5 % (0.0-13.0); NEUTROPHILS # (AUTO) 4.9 x10^3/uL (2.2-4.8); NEUTROPHILS % (AUTO) 60.5 % (42.0-75.0); PLATELET COUNT 136 X10^3/uL (150.0-450.0); RED BLOOD COUNT 4.22 X10^6/uL (4.7-6.0); RED CELL DISTRIBUTION WIDTH 15.3 % (11.6-16.5); WHITE BLOOD COUNT 8.2 X10^3/uL (3.6-10.0)
[2017-02-28] MEDS: FORTAZ or TAZICEF INJ 1 GM in NS 50 ML IV + SPIKE MINIBAG* 50 ML IV SCH ×3 (06:12→22:52)
[2017-02-28] MEDS ORDERED: GLUCOPHAGE ONE (06:15)
[2017-02-28] MEDS ORDERED: NS 250 ML IV 250 ML IV ONE (06:26)
[2017-02-28 06:34] LABS: ALANINE AMINOTRANSFERASE 20 Units/L (12-78); ALKALINE PHOSPHATASE 64 Units/L (46-116); ASPARTATE AMINO TRANSFERASE 14 Units/L (15-37); BLOOD UREA NITROGEN 22 mg/dL (7-18); CALCIUM 9.7 mg/dL (8.5-10.1); CARBON DIOXIDE 30.8 mmol/L (21-32); CHLORIDE 99 mmol/L (98-107); COR CA(FOR HYPOALB) 10.5 mg/dL (8.5-10.1); COR NA(FOR HYPERGLY) 137 mmol/L (136-145); CREATININE 0.82 mg/dL (0.70-1.30); GLUCOSE 121 mg/dL (65-99); SODIUM 136 mmol/L (136-145); TOTAL PROTEIN 7.8 g/dL (6.4-8.2); eGFR BLACK RACES > 60 (>60); eGFR NON BLACK RACES > 60 (>60)
[2017-02-28] MEDS: HumuLIN R SC SCH ×4 (06:40→22:51)
[2017-02-28] MEDS: GLUCOPHAGE PO SCH ×2 (06:41→17:03)
[2017-02-28] MEDS: LEVAQUIN PREMIX IV 750 MG 750 MG/150 ML BAG IV SCH (08:49)
[2017-02-28] MEDS: PEPCID 20 MG IV PREMIX* 20 MG/50 ML BAG IV SCH ×2 (08:49→22:52)
[2017-02-28] MEDS: LASIX IVP SCH ×2 (08:50→22:52)
[2017-02-28] MEDS: ROXICODONE TAB 15 MG PO SCH ×2 (08:52→22:51)
[2017-02-28] MEDS: LANOXIN PO SCH (08:52)
[2017-02-28] MEDS: CELEXA PO SCH (08:53)
[2017-02-28] MEDS: SYNTHROID 88 mcg TAB PO SCH (08:54)
[2017-02-28] MEDS: K-DUR TAB 20 MEQ PO SCH (08:54)
[2017-02-28] MEDS: AMARYL TAB 4 MG PO SCH ×2 (08:54→22:49)
[2017-02-28] MEDS: CORDARONE TAB 200 MG PO SCH (08:55)
[2017-02-28] MEDS: PriLOSEC PO SCH ×2 (09:41→22:52)
[2017-02-28] MEDS ORDERED: CARDIZEM SR 60 MG PO SCH (15:00)
[2017-02-28] MEDS: CARDIZEM TAB 30 MG PLAIN PO SCH ×2 (15:55→22:53)
[2017-02-28] MEDS: XANAX PO PRN (22:53)
[2017-03-01 06:06] LABS: BASOPHILS # (AUTO) 0.1 X10^3/uL (0.0-0.1); BASOPHILS % (AUTO) 0.8 % (0.2-1.0); EOSINOPHILS # (AUTO) 0.3 x10^3/uL (0.0-0.2); EOSINOPHILS % (AUTO) 3.4 % (0.9-2.9); HEMATOCRIT 34.6 % (42.0-54.0); LYMPHOCYTES # (AUTO) 1.9 X10^3/uL (1.3-2.9); LYMPHOCYTES % (AUTO) 22.7 % (21.0-51.0); MEAN CORPUSCULAR HEMOGLOBIN 27.3 pg (27.0-34.0); MEAN CORPUSCULAR HGB CONC 34.7 g/dL (33.0-35.0); MEAN CORPUSCULAR VOLUME 78.9 fL (80.0-100.0); MEAN PLATELET VOLUME 9.8 fL (7.4-11.0); MONOCYTES # (AUTO) 1.2 x10^3/uL (0.3-0.8); MONOCYTES % (AUTO) 14.1 % (0.0-13.0); NEUTROPHILS # (AUTO) 5.1 x10^3/uL (2.2-4.8); PLATELET COUNT 151 X10^3/uL (150.0-450.0); RED BLOOD COUNT 4.39 X10^6/uL (4.7-6.0); WHITE BLOOD COUNT 8.6 X10^3/uL (3.6-10.0)
[2017-03-01] MEDS ORDERED: GLUCOPHAGE ONE ×2 (06:08→17:06)
[2017-03-01] MEDS: CARDIZEM TAB 30 MG PLAIN PO SCH ×2 (06:13→13:34)
[2017-03-01] MEDS: FORTAZ or TAZICEF INJ 1 GM in NS 50 ML IV + SPIKE MINIBAG* 50 ML IV SCH ×3 (06:13→21:32)
[2017-03-01 06:27] LABS: ALANINE AMINOTRANSFERASE 21 Units/L (12-78); ALBUMIN 3.1 g/dL (3.4-5.0); ALKALINE PHOSPHATASE 65 Units/L (46-116); ASPARTATE AMINO TRANSFERASE 16 Units/L (15-37); BLOOD UREA NITROGEN 21 mg/dL (7-18); CALCIUM 10.2 mg/dL (8.5-10.1); CARBON DIOXIDE 30.6 mmol/L (21-32); CHLORIDE 97 mmol/L (98-107); COR CA(FOR HYPOALB) 10.9 mg/dL (8.5-10.1); GLUCOSE 107 mg/dL (65-99); SODIUM 135 mmol/L (136-145); eGFR BLACK RACES > 60 (>60); eGFR NON BLACK RACES > 60 (>60)
[2017-03-01] MEDS: HumuLIN R SC SCH ×4 (06:32→21:54)
[2017-03-01] MEDS: GLUCOPHAGE PO SCH ×2 (06:32→17:10)
[2017-03-01] MEDS: PriLOSEC PO SCH ×2 (09:41→21:34)
[2017-03-01] MEDS: PEPCID 20 MG IV PREMIX* 20 MG/50 ML BAG IV SCH ×2 (09:41→21:33)
[2017-03-01] MEDS: LEVAQUIN PREMIX IV 750 MG 750 MG/150 ML BAG IV SCH (09:41)
[2017-03-01] MEDS: LASIX IVP SCH ×2 (09:41→21:34)
[2017-03-01] MEDS: CELEXA PO SCH (09:41)
[2017-03-01] MEDS: SYNTHROID 88 mcg TAB PO SCH (09:41)
[2017-03-01] MEDS: LANOXIN PO SCH (09:42)
[2017-03-01] MEDS: ROXICODONE TAB 15 MG PO SCH ×2 (09:43→21:47)
[2017-03-01] MEDS: CORDARONE TAB 200 MG PO SCH (09:43)
[2017-03-01] MEDS: K-DUR TAB 20 MEQ PO SCH (09:44)
[2017-03-01] MEDS: AMARYL TAB 4 MG PO SCH ×2 (09:44→21:34)
--- NOTE | 2017-03-01 14:54 | RAD ---
Examination: Chest x-ray. Clinical history: Pneumonia, shortness of breath. Technique: A single portable AP view of the chest was obtained. Comparison: 02/27/2017. Findings: The lung apices were partially omitted from the image. The chest is mildly rotated. The cardiac silhouette appears enlarged. The cardiac silhouette size may be accentuated by the AP pr ojection. No pneumothorax or pleural effusion is noted. The lungs appear clear. No acute osseous abnormality is noted. Monitor leads are seen overlying the chest. Impression: 1. The cardiac silhouette appears enlarged. The cardiac silhouette size may be accentuated by the AP projection. Reported By:
[2017-03-01] MEDS ORDERED: XANAX PO PRN (15:03)
[2017-03-01] MEDS ORDERED: CARDIZEM CD 180 MG PO SCH (21:00)
[2017-03-01] MEDS: CARDIZEM CD 180 MG PO SCH (21:46)
[2017-03-02] MEDS ORDERED: GLUCOPHAGE ONE ×2 (05:42→17:22)
[2017-03-02 06:01] LABS: ALANINE AMINOTRANSFERASE 21 Units/L (12-78); ALBUMIN 3.3 g/dL (3.4-5.0); ALKALINE PHOSPHATASE 70 Units/L (46-116); ASPARTATE AMINO TRANSFERASE 17 Units/L (15-37); BLOOD UREA NITROGEN 19 mg/dL (7-18); CALCIUM 10.2 mg/dL (8.5-10.1); CARBON DIOXIDE 30.1 mmol/L (21-32); CHLORIDE 96 mmol/L (98-107); COR CA(FOR HYPOALB) 10.8 mg/dL (8.5-10.1); CREATININE 0.86 mg/dL (0.70-1.30); DIGOXIN 0.56 ng/mL (0.9-2); GLUCOSE 71 mg/dL (65-99); SODIUM 134 mmol/L (136-145); TOTAL PROTEIN 8.4 g/dL (6.4-8.2); eGFR BLACK RACES > 60 (>60); eGFR NON BLACK RACES > 60 (>60)
[2017-03-02] MEDS: FORTAZ or TAZICEF INJ 1 GM in NS 50 ML IV + SPIKE MINIBAG* 50 ML IV SCH ×3 (06:07→21:04)
[2017-03-02 06:09] LABS: BASOPHILS # (AUTO) 0.1 X10^3/uL (0.0-0.1); BASOPHILS % (AUTO) 0.7 % (0.2-1.0); EOSINOPHILS # (AUTO) 0.3 x10^3/uL (0.0-0.2); EOSINOPHILS % (AUTO) 3.3 % (0.9-2.9); HEMATOCRIT 34.6 % (42.0-54.0); HEMOGLOBIN 12.1 g/dL (13.5-18.0); LYMPHOCYTES # (AUTO) 2.3 X10^3/uL (1.3-2.9); LYMPHOCYTES % (AUTO) 22.2 % (21.0-51.0); MEAN CORPUSCULAR HEMOGLOBIN 27.6 pg (27.0-34.0); MEAN CORPUSCULAR HGB CONC 35.1 g/dL (33.0-35.0); MEAN CORPUSCULAR VOLUME 78.6 fL (80.0-100.0); MEAN PLATELET VOLUME 9.8 fL (7.4-11.0); MONOCYTES # (AUTO) 1.4 x10^3/uL (0.3-0.8); MONOCYTES % (AUTO) 13.5 % (0.0-13.0); NEUTROPHILS # (AUTO) 6.2 x10^3/uL (2.2-4.8); NEUTROPHILS % (AUTO) 60.3 % (42.0-75.0); PLATELET COUNT 163 X10^3/uL (150.0-450.0); WHITE BLOOD COUNT 10.2 X10^3/uL (3.6-10.0)
[2017-03-02] MEDS: HumuLIN R SC SCH ×4 (06:37→21:14)
[2017-03-02] MEDS: GLUCOPHAGE PO SCH ×2 (06:38→17:24)
[2017-03-02] MEDS: PEPCID 20 MG IV PREMIX* 20 MG/50 ML BAG IV SCH ×2 (08:42→21:04)
[2017-03-02] MEDS: LEVAQUIN PREMIX IV 750 MG 750 MG/150 ML BAG IV SCH (08:42)
[2017-03-02] MEDS: LASIX IVP SCH ×2 (08:44→21:04)
[2017-03-02] MEDS: LANOXIN PO SCH (08:44)
[2017-03-02] MEDS: CARDIZEM CD 180 MG PO SCH (08:44)
[2017-03-02] MEDS: AMARYL TAB 4 MG PO SCH ×2 (08:45→21:01)
[2017-03-02] MEDS: CELEXA PO SCH (08:46)
[2017-03-02] MEDS: PriLOSEC PO SCH ×2 (08:46→21:00)
[2017-03-02] MEDS: CORDARONE TAB 200 MG PO SCH (08:47)
[2017-03-02] MEDS: K-DUR TAB 20 MEQ PO SCH (08:47)
[2017-03-02] MEDS: SYNTHROID 88 mcg TAB PO SCH (08:47)
[2017-03-02] MEDS: ROXICODONE TAB 15 MG PO SCH ×2 (09:02→21:01)
[2017-03-02] MEDS ORDERED: NS 100 ML IV 0 ML IV ONE (20:52)
[2017-03-02] MEDS: ELIQUIS PO SCH (21:02)
[2017-03-03] MEDS ORDERED: GLUCOPHAGE ONE (05:54)
[2017-03-03] MEDS: FORTAZ or TAZICEF INJ 1 GM in NS 50 ML IV + SPIKE MINIBAG* 50 ML IV SCH ×2 (06:07→14:42)
[2017-03-03] MEDS: GLUCOPHAGE PO SCH (06:07)
[2017-03-03 06:14] LABS: BASOPHILS # (AUTO) 0.1 X10^3/uL (0.0-0.1); BASOPHILS % (AUTO) 0.6 % (0.2-1.0); EOSINOPHILS # (AUTO) 0.3 x10^3/uL (0.0-0.2); EOSINOPHILS % (AUTO) 3.9 % (0.9-2.9); HEMATOCRIT 33.8 % (42.0-54.0); HEMOGLOBIN 11.7 g/dL (13.5-18.0); LYMPHOCYTES # (AUTO) 1.7 X10^3/uL (1.3-2.9); LYMPHOCYTES % (AUTO) 20.6 % (21.0-51.0); MEAN CORPUSCULAR HEMOGLOBIN 27.7 pg (27.0-34.0); MEAN CORPUSCULAR HGB CONC 34.7 g/dL (33.0-35.0); MEAN CORPUSCULAR VOLUME 79.9 fL (80.0-100.0); MEAN PLATELET VOLUME 9.5 fL (7.4-11.0); MONOCYTES # (AUTO) 1.3 x10^3/uL (0.3-0.8); MONOCYTES % (AUTO) 15.9 % (0.0-13.0); PLATELET COUNT 142 X10^3/uL (150.0-450.0); RED BLOOD COUNT 4.23 X10^6/uL (4.7-6.0); RED CELL DISTRIBUTION WIDTH 14.9 % (11.6-16.5); WHITE BLOOD COUNT 8.4 X10^3/uL (3.6-10.0)
[2017-03-03] MEDS: HumuLIN R SC SCH ×2 (06:25→11:19)
[2017-03-03 06:30] LABS: ALANINE AMINOTRANSFERASE 21 Units/L (12-78); ALBUMIN 3.1 g/dL (3.4-5.0); ALKALINE PHOSPHATASE 77 Units/L (46-116); ASPARTATE AMINO TRANSFERASE 16 Units/L (15-37); BLOOD UREA NITROGEN 18 mg/dL (7-18); CALCIUM 10.2 mg/dL (8.5-10.1); CARBON DIOXIDE 31.2 mmol/L (21-32); CHLORIDE 100 mmol/L (98-107); COR CA(FOR HYPOALB) 10.9 mg/dL (8.5-10.1); COR NA(FOR HYPERGLY) 140 mmol/L (136-145); CREATININE 0.88 mg/dL (0.70-1.30); GLUCOSE 141 mg/dL (65-99); SODIUM 139 mmol/L (136-145); TOTAL PROTEIN 7.7 g/dL (6.4-8.2); eGFR BLACK RACES > 60 (>60); eGFR NON BLACK RACES > 60 (>60)
--- NOTE | 2017-03-03 07:08 | RAD ---
HISTORY: Shortness of breath Study: Single-view chest, done portably Comparison: March 01, 2017 Findings: Cardiac monitoring electrodes are noted on the chest. The trachea is midline. All of the heart size appears slightly smaller than on prior studies, the heart is still enlarged. Lungs and pleural spac es are clear. Osseous structures are intact. IMPRESSION: Cardiomegaly without acute cardiopulmonary disease. Reported By:
[2017-03-03] MEDS: PEPCID 20 MG IV PREMIX* 20 MG/50 ML BAG IV SCH (08:25)
[2017-03-03] MEDS: LASIX IVP SCH (08:26)
[2017-03-03] MEDS: K-DUR TAB 20 MEQ PO SCH (08:27)
[2017-03-03] MEDS: PriLOSEC PO SCH (08:27)
[2017-03-03] MEDS: ELIQUIS PO SCH (08:27)
[2017-03-03] MEDS: CARDIZEM CD 180 MG PO SCH (08:28)
[2017-03-03] MEDS: CORDARONE TAB 200 MG PO SCH (08:28)
[2017-03-03] MEDS: SYNTHROID 88 mcg TAB PO SCH (08:28)
[2017-03-03] MEDS: LANOXIN PO SCH (08:28)
[2017-03-03] MEDS: ROXICODONE TAB 15 MG PO SCH (08:28)
[2017-03-03] MEDS: LEVAQUIN PREMIX IV 750 MG 750 MG/150 ML BAG IV SCH (08:29)
[2017-03-03] MEDS: AMARYL TAB 4 MG PO SCH (08:29)
[2017-03-03] MEDS: CELEXA PO SCH (08:29)
[2017-03-03 13:05] VITALS: BP 123/64
--- NOTE | 2017-03-03 14:31 | DR.CARTERD ---
- Discharge Summary for: Discharge Summary for Date of:: 03/03/17 - Admission Date Date of Admission: 02/25/17 - Admission Diagnoses Admission Diagnosis: (1) Atrial fibrillation with RVR (2) CHF (congestive heart failure) (3) GI bleeding (4) Pneumonia - Discharge Date Discharge Date: 03/03/17 - Discharge Diagnoses Discharge Diagnosis: (1) Atrial fibrillation with RVR (2) CHF (congestive heart failure) (3) GI bleeding (4) Pneumonia (5) Anxiety (6) Depression (7) CAD (8) Diabetes Mellitus (9) COPD (10) Hypothyroidism - Hospital Course Hospital Course: IS A 66 YEAR OLD PATIENT OF OURS. HE WAS BROUGHT TO THE ER FROM [facility] WITH COMPLAINTS OF SHORTNESS OF BREATH, RESPIRATORY DISTRESS, AND CYANOSIS. UPON ARRIVAL TO ER, PATIENTS VITALS WERE 98.3, 161, 36, 86% ON NC, 140/96. EKG SHOWED A-FIB WITH RATE OF 167. LABS AND XRAYS WERE OBTAINED AND REPORTED A WBC OF 21.2, NA 131, CHLORIDE 96, GLUCOSE 313, BNP 192. PATIENT WAS POSITIVE FOR OCCULT BLOOD IN STOOL. DIGOXIN LEVEL WAS 0.56. CHEST XRAY REPORTED MILD CARDIOMEGALY AND CENTRAL VASCULAR CONGESTION, ALSO BIBASILAR EDEMA AND LEFT PLEURAL EFFUSION. FINGINGS WERE CONSISTENT WITH CHF. PATIENT WAS STARTED ON CARDIZEM DRIP, GIVEN LASIX AND ATIVAN IN ER. PATIENT WAS ADMITTED FOR FURTHER OBSERVATION AND TREATMENT. PATIENT WAS STARTED ON LEVAQUIN, FORTAZ, LASIX, AND WAS PLACED ON BI-PAP. OVER THE COURSE OF STAY, PATIENTS CONDITION AND LABS IMPROVED. BY DISCHARGE, CHEST XRAY WAS WNL, LUNGS WERE CTA. EKG AND CARDIAC ENZYMES WERE WNL. PATIENT STATES THAT HE IS FEELING MUCH BETTER AND SHORTNESS OF BREATH HAS MARKEDLY IMPROED. WE PLANNED FOR DISCHARGE BACK TO [facility]. INSTRUCTION FOR FOLLOW-UP AND MEDICATIONS WERE DISCUSSED WITH PATIENT. PATIENT VERBALIZED UNDERSTANDING OF BOTH. PATIENT WAS DISCHARGED BACK IN STABLE CONDITION. PATIENT WAS STARTED ON LASIX 40MG PO IN AM AND LASIX 40MG PO AT HS PRN FOR SWELLING, AND CARDIZEM 180MG PO DAILY. WE WILL ORDER FOR A CBC, CMP, AND DIGOXIN LEVELS FOT BE CHECKED ON MONDAYS AND THURSDAYS AT [facility]. - Discharge Medications Discharge Medications: Alprazolam 0.25 mg PO DAILY PRN 02/25/17 [History] Amiodarone HCl 200 mg PO DAILY 02/25/17 [History] Carvedilol 12.5 mg PO BID 02/25/17 [History] Citalopram Hydrobromide [Celexa 10 mg] 10 mg PO DAILY 02/25/17 [History] Digoxin [LANOXIN TAB 0.125 MG *] 250 mcg PO DAILY 02/25/17 [History] Glimepiride [Glimepiride 2 mg] 2 mg PO BID 02/25/17 [History] Levothyroxine Sodium [SYNTHROID 88 mcg *] 88 mcg PO DAILY 02/25/17 [History] Lisinopril 10 mg PO BID 02/25/17 [History] Meloxicam [Mobic] 7.5 mg PO DAILY 02/25/17 [History] Metformin HCl 1,000 mg PO BID 02/25/17 [History] Oxycodone HCl [ROXICODONE TAB 15 MG (PLAIN) *] 15 mg PO BID 02/25/17 [History] Potassium Chloride 20 meq PO DAILY 02/25/17 [History] Diltiazem HCl Ext Rel [CARDIZEM CD 180 mg (24 hr) *] 1 cap PO Q24H #30 cap 01/13 [Rx] Furosemide [Lasix] 40 mg PO HS PRN #30 tab 03/03/17 [Rx] Furosemide [Lasix] 40 mg PO QAM #30 tab 03/03/17 [Rx]
== END 2017-03-03 15:05 | DRG 291 ==
LOC: ER 03:29 → ICU 06:59
PROVIDERS: ADMIT Internal Medicine; ATTEND Internal Medicine
DX: I50.41 Acute combined systolic (congestive) and diastolic (congestive) heart failure (principal); I48.91 Unspecified atrial fibrillation; J44.9 Chronic obstructive pulmonary disease, unspecified; R06.09 Other forms of dyspnea; J18.1 Lobar pneumonia, unspecified organism; K92.1 Melena; R94.31 Abnormal electrocardiogram [ECG] [EKG]; E11.65 Type 2 diabetes mellitus with hyperglycemia; I25.10 Atherosclerotic heart disease of native coronary artery without angina pectoris; F32.89 Other specified depressive episodes; F41.8 Other specified anxiety disorders
CPT/HCPCS: 36415; 36600; 51702; 71010; 80053; 80162; 81001; 82009; 82270; 82550; 82553; 82803; 83605; 83735; 83880; 84484; 85014; 85018; 85025; 85610; 85730; 87040; 87070; 87205; 93005; 94640; 96365; 96367; 96374; 96375; 99231; 99284; 99285; A4222; A4618; A7030; C9113; S0028; J0696; J0713; J1815; J1940; J1956; J2060; J3490

== ENCOUNTER 2018-10-02 08:29 | Observation (INO) ==
[2018-10-02] MEDS ORDERED: NITROSTAT SL PRN (08:53)
[2018-10-02] MEDS ORDERED: PEPCID 20 MG IV PREMIX* 20 MG/50 ML BAG IV ONE ×2 (08:53→08:57)
[2018-10-02 08:54] VITALS: BMI 38.5
[2018-10-02] MEDS ORDERED: ASPIRIN 81 MG CHEWTAB ONE (08:57)
[2018-10-02] MEDS ORDERED: ASPIRIN 81 MG CHEWTAB PO SCH (09:00)
[2018-10-02] MEDS ORDERED: ZOFRAN INJ 4 MG VIAL ONE (09:10)
[2018-10-02] MEDS ORDERED: MORPHINE SULFATE INJ 4 MG ONE (09:11)
[2018-10-02 09:12] LABS: BASOPHILS # (AUTO) 0.1 X10^3/uL (0.0-0.1); BASOPHILS % (AUTO) 0.6 % (0.2-1.0); EOSINOPHILS # (AUTO) 0.2 x10^3/uL (0.0-0.2); EOSINOPHILS % (AUTO) 2.4 % (0.9-2.9); HEMATOCRIT 33.5 % (42.0-54.0); HEMOGLOBIN 11.6 g/dL (13.5-18.0); LYMPHOCYTES # (AUTO) 1.3 X10^3/uL (1.3-2.9); LYMPHOCYTES % (AUTO) 15.7 % (21.0-51.0); MEAN CORPUSCULAR HEMOGLOBIN 28.6 pg (27.0-34.0); MEAN CORPUSCULAR HGB CONC 34.6 g/dL (33.0-35.0); MEAN CORPUSCULAR VOLUME 82.6 fL (80.0-100.0); MEAN PLATELET VOLUME 10.1 fL (7.4-11.0); MONOCYTES # (AUTO) 1.2 x10^3/uL (0.3-0.8); NEUTROPHILS # (AUTO) 5.5 x10^3/uL (2.2-4.8); NEUTROPHILS % (AUTO) 67.3 % (42.0-75.0); PLATELET COUNT 130 X10^3/uL (150.0-450.0); RED BLOOD COUNT 4.06 X10^6/uL (4.7-6.0); WHITE BLOOD COUNT 8.2 X10^3/uL (3.6-10.0)
--- NOTE | 2018-10-02 09:19 | DR.CP ---
HPI Time Seen Time Seen by Provider: 10/02/18 08:45 HPI Comment HPI Comment: PAIN CONSTANT WITH INTERMITTENT EXACERBATION. PAIN ASSOCIATED WITH WEAKNESS, DIZZINESS AND NAUSEA. PAIN WORSE THIS AM NOW WITH DIAPHORESIS WELL. Complaint Chief Complaint Doctor Comments: SUBSTERNAL CHEST PRESSURE SINCE 01:30 AM. Reviewed Nurses Notes Review: Yes Source History Provided: Patient and Intermediate Mode of Arrival Mode of Arrival: Stretcher Timing Came on: Suddenly Pain: Present Now Duration Duration: Intermittent Duration: Hours Location Location of Chest Pain: Chest (SUBSTERNAL.) Chest Pain Radiation Location: None Context Onset: At rest Cardiac Risk Factors: HTN PE Risk Factors: Immobilization History of: Angina Prehospital Care: None Quality Quality: Sharp and Pressure like Severity Severity: Severe Modifying Factors Worsens: Nothing Impoves: Nothing Associated Signs and Symptoms Associated Signs and Symptoms: Shortness of Breath, Diaphoresis and Nausea/Vomiting PMH PMH Past Medical History: Angina, Anxiety, Arthritis, CHF, COPD, Coronary Artery Disease, Depression, Diabetes, Hypertension and Hypothyroidism Surgical History: Unknown Family History Family Medical History: Diabetes Mellitus, Cancer and [place] Social History Do you use any recreational Drugs:: No ROS Review of Systems Constitutional: Diaphoresis, Weakness and Fatigue Eyes: No Symptoms Reported ENTM: No Symptoms Reported Respiratoy: Short of Breath Cardiovascular: Chest Pain and Edema Gastrointestinal/Abdominal: Nausea Genitourinary: No Symptoms Reported Neurological: Weakness and Dizziness Musculoskeletal: No Symptoms Reported Integumentary: Change in Color Hematologic/Lymphatic: Easy Bleeding and Easy Bruising Endocrine: No Symptoms Reported Psychiatric: No Symptoms Reported All Other Systems: Reviewed and Negative PE Vitals Vitals: Temperature 97.9 F Pulse Rate [Apical] 85 Pulse Rate 74 Respiratory Rate 20 Blood Pressure [Left Arm] 149/64 Blood Pressure [Right Arm] 144/66 Blood Pressure 146/73 O2 Sat by Pulse Oximetry 97 General Limitations: No Limitations General Appearance: Alert and In No Apparent Distress Head Head Exam: Normal Inspection Eyes Eye exam: Normal Appearance ENT ENT Exam: Normal Exam Chest Chest Inspection: Normal Inspection Respiratory Respiratory Exam: Normal Lung Sounds Bilat Respiratory Exam: Bilateral: Wheezing and Bilateral: Rhonchi, Upper: Rhonchi and Lower: Wheezing and Lower: Rhonchi Cardiovascular Cardiovascular Exam: Irregular Rhythm (A FIB CONTROL RATE.) Pulse: Normal Edema: Normal Abdominal Exam Abdominal Exam: Normal Inspection, Normal Bowel Sounds and Soft; negative Tenderness Extremities Extremities Exam: Normal Inspection and Edema (3 PLUS) Back Back Exam: Normal Inspection Neurologic Neurological Exam: Alert and Oriented X3; negative Motor Sensory Deficit Psychiatric Psychiatric Exam: Normal Affect and Normal Mood Skin Skin Exam: Warm, Dry, Intact and Normal Color MDM Differential Diagnosis Differential Diagnosis: Angina, CHF, Myocardial Infarction, Pericarditis, Pleuritis, Pneumonia and Pneumothorax COURSE Treatment Treatment: SEE ORDERS. Consultation Consultation Comments: DISCUSS PATIENT WITH . HE WILL ADMIT PATIENT. Education/Counseling Education/Counseling: Patient Educated On: Diagnosis ROR Labs Reviewed Result Diagrams: 10/02/18 08:50 10/02/18 08:50 Laboratory: WBC 8.2 X10^3/uL (3.6-10.0) 10/02/18 08:50 RBC 4.06 X10^6/uL (4.7-6.0) L 10/02/18 08:50 Hgb 11.6 g/dL (13.5-18.0) L 10/02/18 08:50 Hct 33.5 % (42.0-54.0) L 10/02/18 08:50 MCV 82.6 fL (80.0-100.0) 10/02/18 08:50 MCH 28.6 pg (27.0-34.0) 10/02/18 08:50 MCHC 34.6 g/dL (33.0-35.0) 10/02/18 08:50 RDW 16.0 % (11.6-16.5) 10/02/18 08:50 Plt Count 130 X10^3/uL (150.0-450.0) L 10/02/18 08:50 MPV 10.1 fL (7.4-11.0) 10/02/18 08:50 Neut % (Auto) 67.3 % (42.0-75.0) 10/02/18 08:50 Lymph % (Auto) 15.7 % (21.0-51.0) L 10/02/18 08:50 [place] % (Auto) 14.0 % (0.0-13.0) H 10/02/18 08:50 Eos % (Auto) 2.4 % (0.9-2.9) 10/02/18 08:50 Baso % (Auto) 0.6 % (0.2-1.0) 10/02/18 08:50 Neut # (Auto) 5.5 x10^3/uL (2.2-4.8) H 10/02/18 08:50 Lymph # (Auto) 1.3 X10^3/uL (1.3-2.9) 10/02/18 08:50 [place] # (Auto) 1.2 x10^3/uL (0.3-0.8) H 10/02/18 08:50 Eos # (Auto) 0.2 x10^3/uL (0.0-0.2) 10/02/18 08:50 Baso # (Auto) 0.1 X10^3/uL (0.0-0.1) 10/02/18 08:50 Absolute Nucleated RBC 0.1 /100WBC 10/02/18 08:50 INR Target Range - 10/02/18 08:50 INR 1.10 (0.8-1.3) 10/02/18 08:50 APTT 31.0 SECONDS (22.9-36.5) 10/02/18 08:50 PTT Comment - 10/02/18 08:50 Sodium 137 mmol/L (136-145) 10/02/18 08:50 Corrected Sodium 140 mmol/L (136-145) 10/02/18 08:50 Potassium 4.8 mmol/L (3.5-5.1) 10/02/18 08:50 Chloride 100 mmol/L (98-107) 10/02/18 08:50 Carbon Dioxide 28.3 mmol/L (21-32) 10/02/18 08:50 BUN 12 mg/dL (7-18) 10/02/18 08:50 Creatinine 0.98 mg/dL (0.70-1.30) 10/02/18 08:50 Est GFR (MDRD) Af Amer > 60 (>60) 10/02/18 08:50 Est GFR (MDRD) Non-Af > 60 (>60) 10/02/18 08:50 Glucose 239 mg/dL (65-99) H 10/02/18 08:50 POC Glucose (mg/dL) 199 mg/dL (65-99) H 10/02/18 12:18 Calcium 10.0 mg/dL (8.5-10.1) 10/02/18 08:50 Corrected Calcium TNP 10/02/18 08:50 Total Bilirubin 0.40 mg/dL (0.2-1.0) 10/02/18 08:50 AST 15 Units/L (15-37) 10/02/18 08:50 ALT 25 Units/L (12-78) 10/02/18 08:50 Alkaline Phosphatase 112 Units/L (46-116) 10/02/18 08:50 Creatine Kinase 50 Units/L (39-308) 10/02/18 08:50 CK-MB (CK-2) < 1.0 ng/mL (0-4.0) 10/02/18 08:50 CK/CKMB % Calc 2.0 % (<4) 10/02/18 08:50 Troponin I < 0.02 ng/mL (0-1.5) 10/02/18 08:50 B-Natriuretic Peptide 215 pg/mL (0-79) H 10/02/18 08:50 Total Protein 8.0 g/dL (6.4-8.2) 10/02/18 08:50 Albumin 3.4 g/dL (3.4-5.0) 10/02/18 08:50 Globulin 4.6 g/dL (2.5-4.5) H 10/02/18 08:50 Albumin/Globulin Ratio 0.7 Ratio (1.1-2.1) L 10/02/18 08:50 Digoxin 0.59 ng/mL (0.9-2) L 10/02/18 08:50 XRAY XRAY Findings: DISCUSS REPORT WITH PATIENT AND NOTED REPORT. EKG Rate: 77 [place]: Normal Rhythm: Afib Block: LBBB Hypertrophy: None ST: Normal Diagnosis Discharge Problem: Chest pain, Atrial fibrillation
--- NOTE | 2018-10-02 09:20 | RAD ---
Examination: AP chest History: Mid sternal chest pain Comparison 11/28/2017 Findings: Persistent cardiomegaly of moderate degree. The lungs are essentially clear. Slight central pulmonary vascular prominence is nonspecific. There is no evidence for pulmonary edema or pleural fluid. Impression: Cardiac enlargement. Reported By:
[2018-10-02] MEDS ORDERED: MORPHINE SULFATE INJ 4 MG IVP ONE (09:21)
[2018-10-02] MEDS ORDERED: ZOFRAN INJ 4 MG VIAL IVP ONE (09:21)
[2018-10-02 09:28] LABS: BLOOD UREA NITROGEN 12 mg/dL (7-18); CARBON DIOXIDE 28.3 mmol/L (21-32); CHLORIDE 100 mmol/L (98-107); COR NA(FOR HYPERGLY) 140 mmol/L (136-145); CREATININE 0.98 mg/dL (0.70-1.30); SODIUM 137 mmol/L (136-145); TROPONIN I < 0.02 ng/mL (0-1.5); eGFR NON BLACK RACES > 60 (>60)
[2018-10-02 09:32] LABS: ALANINE AMINOTRANSFERASE 25 Units/L (12-78); ALBUMIN 3.4 g/dL (3.4-5.0); ALKALINE PHOSPHATASE 112 Units/L (46-116); ASPARTATE AMINO TRANSFERASE 15 Units/L (15-37); CREATINE KINASE 50 Units/L (39-308); CREATINE KINASE MB < 1.0 ng/mL (0-4.0)
[2018-10-02 09:36] LABS: B-TYPE NATRIURETIC PEPTIDE 215 pg/mL (0-79)
[2018-10-02] MEDS ORDERED: GLUCOPHAGE ONE ×2 (12:34→20:41)
--- NOTE | 2018-10-02 12:37 | DR.H&P ---
H&P - History & Physical for Day of: H&P Date: 10/02/18 - Chief Complaint Chief Complaint: CHEST PAIN, DIZZINESS - History of Present Illness History of Present Illness: 68 WM RESIDENT OF [facility], ADMITTED FROM ER WITH CO CHEST PAIN AND DIZZINESS. PT WAS NOTED TO BE IN AFIB ON ER ARRIVAL. PT HAS PMH OF COPD, CAD, CHF, HTN, OA. PT ADMITTED FOR TREATMENT OF ACUTE ILLNESS, R/O AMI. - Past Medical History Past Medical History: Angina, Coronary Artery Disease, Hypertension, Diabetes, Depression, Anxiety, Hypothyroidism, COPD, Arthritis, CHF Additional Medical History: Paroxysmal Nocturnal Dyspnea, Muscle Weakness, Back Pain, Knee Pain - Past Surgical History Surgical History: Unknown Additional Surgical History: HEART CATHETERIZATION X 2 - Family History Family Medical History: Diabetes Mellitus, Cancer, [place] - Social History Does patient currently use any type of tobacco product: No Have you used tobacco products in the last 12 months: No Type of Tobacco Use: None Does any household member use tobacco: No Alcohol Use: None Drug Use: None - Medications Home Medications: SHRIMP Allergy (Uncoded 02/25/17 04:23) CONTINUE taking the following medications digoxin 250 mcg PO DAILY 10/02/18 [History] diltiazem HCl 180 mg PO DAILY 10/02/18 [History] famotidine [Pepcid] 20 mg PO BID 10/02/18 [History] glimepiride 4 mg PO BID 10/02/18 [History] iron-folic acid-mv, min cmb#15 [Hemocyte-Plus] 1 cap PO DAILY 10/02/18 [History] levothyroxine 125 mcg PO DAILY 10/02/18 [History] - Review of Systems Constitutional: Weakness Eyes: No Symptoms Reported ENT: No Symptoms Reported Respiratory: Shortness of Breath Cardiovascular: Chest Pain, Palpitations, Light Headedness Gastrointestinal: No Symptoms Reported Genitourinary: No Symptoms Reported Musculoskeletal: No Symptoms Reported Skin: Other (DIAPHORESIS) Neurological: Weakness - Physical Exam Vital Signs: Temperature 97.9 F Pulse Rate [Apical] 85 Pulse Rate 74 Respiratory Rate 20 Blood Pressure [Left Arm] 149/64 Blood Pressure [Right Arm] 144/66 Blood Pressure 146/73 O2 Sat by Pulse Oximetry 97 Oriented: Normal Eyes: Normal Ear: Normal Nose: Normal Throat: Normal Respiratory: RML Diminished, RLL Diminished, LML Diminished, LLL Diminished Cardiovascular: Normal : Normal Auscultation: Bowel Sounds: Normal Palpation: Normal Tenderness: Normal Skin: Decreased [place], Diaphoresis Musculoskeletal: Normal Psychiatric: Anxiety Affect: Anxious Speech Pattern: Clear, Appropriate - Assessment/Plan (1) Chest pain Status: Acute Plan: PT ADMITTED FOR SERIAL CE, EKG. SUPPLEMENTAL O2,. CXR ON ADMISSION, BP AND LIPID CONTROL. VERIFY HOME MEDICATION. RESP CONSULT (2) Atrial fibrillation Status: Chronic (3) CHF (congestive heart failure) Qualifiers: Qualified Code(s): I50.41 - Acute combined systolic (congestive) and diastolic (congestive) heart failure Status: Acute (4) COPD exacerbation Status: Acute (5) Hypertension Qualifiers: Hypertension type: essential hypertension Qualified Code(s): I10 - Essential (primary) hypertension Status: Chronic (6) CAD (coronary artery disease) Qualifiers: Coronary Disease-Associated Artery/Lesion type: [place] artery [place] vs. transplanted heart: [place] heart Associated angina: without angina Qualified Code(s): I25.10 - Atherosclerotic heart disease of [place] coronary artery without angina pectoris Status: Chronic (7) Hypothyroidism Status: Chronic (8) Diabetes Qualifiers: Diabetes mellitus type: type 2 Diabetes mellitus long term acute care registered nurse insulin use: without long term acute care registered nurse use Diabetes mellitus complication status: without compl ication Qualified Code(s): E11.9 - Type 2 diabetes mellitus without complications Status: Chronic - Allergies Allergies/Adverse Reactions: Allergies Allergy/AdvReac Type Severity Reaction Status Date / Time SHRIMP Allergy Uncoded 02/25/17 04:23
[2018-10-02] MEDS: LASIX PO SCH (12:39)
[2018-10-02] MEDS: CARDIZEM CD 180 MG PO SCH (12:39)
[2018-10-02] MEDS: GLUCOPHAGE PO SCH ×2 (12:40→20:48)
[2018-10-02] MEDS: K-DUR TAB 20 MEQ PO SCH (12:41)
[2018-10-02] MEDS: ROXICODONE TAB 15 MG PO SCH ×2 (12:41→20:49)
[2018-10-02] MEDS: CORDARONE TAB 200 MG PO SCH (12:41)
[2018-10-02] MEDS: XANAX PO SCH ×2 (12:41→20:47)
[2018-10-02 16:36] LABS: CREATINE KINASE 18 Units/L (39-308); CREATINE KINASE MB < 1.0 ng/mL (0-4.0); TROPONIN I 0.02 ng/mL (0-1.5)
[2018-10-02 16:44] LABS: CKMB % 5.6 % (<4)
[2018-10-02 18:04] LABS: BILIRUBIN,URINE NEGATIVE (NEGATIVE); BLOOD/HEMOGLOBIN,URINE NEGATIVE (NEGATIVE); GLUCOSE, URINE NEGATIVE (NEGATIVE); KETONES,URINE NEGATIVE (NEGATIVE); LEUKOCYTE ESTERASE ,URINE NEGATIVE (NEGATIVE); NITRITES,URINE NEGATIVE (NEGATIVE); PROTEIN,URINE NEGATIVE (NEGATIVE); UROBILINOGEN,URINE NORMAL (NORMAL)
[2018-10-02 18:06] LABS: COLOR,URINE YELLOW (YELLOW)
[2018-10-02 18:07] LABS: APPEARANCE,URINE CLEAR (CLEAR)
[2018-10-02] MEDS: ZESTRIL TAB 10 MG PO SCH (20:47)
[2018-10-02] MEDS: COREG TAB 12.5 MG PO SCH (20:47)
[2018-10-02] MEDS: PEPCID TAB 20 MG PO SCH (20:47)
[2018-10-02 22:12] LABS: CKMB % 2.4 % (<4); CREATINE KINASE 41 Units/L (39-308); CREATINE KINASE MB < 1.0 ng/mL (0-4.0); TROPONIN I 0.02 ng/mL (0-1.5)
[2018-10-03 05:30] LABS: BASOPHILS # (AUTO) 0.1 X10^3/uL (0.0-0.1); BASOPHILS % (AUTO) 0.7 % (0.2-1.0); EOSINOPHILS # (AUTO) 0.2 x10^3/uL (0.0-0.2); EOSINOPHILS % (AUTO) 2.8 % (0.9-2.9); HEMATOCRIT 33.9 % (42.0-54.0); HEMOGLOBIN 11.7 g/dL (13.5-18.0); LYMPHOCYTES # (AUTO) 1.3 X10^3/uL (1.3-2.9); LYMPHOCYTES % (AUTO) 15.3 % (21.0-51.0); MEAN CORPUSCULAR HEMOGLOBIN 28.6 pg (27.0-34.0); MEAN CORPUSCULAR HGB CONC 34.6 g/dL (33.0-35.0); MEAN CORPUSCULAR VOLUME 82.7 fL (80.0-100.0); MEAN PLATELET VOLUME 9.9 fL (7.4-11.0); MONOCYTES # (AUTO) 1.1 x10^3/uL (0.3-0.8); MONOCYTES % (AUTO) 13.5 % (0.0-13.0); NEUTROPHILS # (AUTO) 5.6 x10^3/uL (2.2-4.8); NEUTROPHILS % (AUTO) 67.7 % (42.0-75.0); PLATELET COUNT 107 X10^3/uL (150.0-450.0); RED CELL DISTRIBUTION WIDTH 15.9 % (11.6-16.5); WHITE BLOOD COUNT 8.2 X10^3/uL (3.6-10.0)
[2018-10-03 05:51] LABS: ALANINE AMINOTRANSFERASE 22 Units/L (12-78); ALBUMIN 3.3 g/dL (3.4-5.0); ALKALINE PHOSPHATASE 84 Units/L (46-116); ASPARTATE AMINO TRANSFERASE 14 Units/L (15-37); BLOOD UREA NITROGEN 11 mg/dL (7-18); CALCIUM 9.5 mg/dL (8.5-10.1); CHOL/HDL RATIO 4.4 (0.0-5.0); CHOLESTEROL 106 mg/dL (0-200); COR CA(FOR HYPOALB) 10.1 mg/dL (8.5-10.1); COR NA(FOR HYPERGLY) 139 mmol/L (136-145); CREATININE 0.97 mg/dL (0.70-1.30); HDL CHOLESTEROL 24 mg/dL (40-60); MAGNESIUM 1.2 mg/dL (1.7-2.9); SODIUM 137 mmol/L (136-145); TOTAL PROTEIN 7.6 g/dL (6.4-8.2); TRIGLYCERIDES 155 mg/dL (0-150); eGFR NON BLACK RACES > 60 (>60)
[2018-10-03 06:24] LABS: CHLORIDE 98 mmol/L (98-107)
[2018-10-03] MEDS ORDERED: SYNTHROID 125 mcg TAB PO SCH (07:30)
[2018-10-03] MEDS ORDERED: GLUCOPHAGE ONE ×2 (08:57→21:12)
[2018-10-03] MEDS: ROXICODONE TAB 15 MG PO SCH ×2 (09:53→21:17)
[2018-10-03] MEDS: ZESTRIL TAB 10 MG PO SCH ×2 (09:54→21:17)
[2018-10-03] MEDS: HEMOCYTE-PLUS PO SCH (09:54)
[2018-10-03] MEDS: K-DUR TAB 20 MEQ PO SCH (09:54)
[2018-10-03] MEDS: LANOXIN PO SCH (09:54)
[2018-10-03] MEDS: LASIX PO SCH (09:55)
[2018-10-03] MEDS: PEPCID TAB 20 MG PO SCH ×2 (09:55→21:17)
[2018-10-03] MEDS: CORDARONE TAB 200 MG PO SCH (09:55)
[2018-10-03] MEDS: GLUCOPHAGE PO SCH ×2 (09:55→21:17)
[2018-10-03] MEDS: XANAX PO SCH ×2 (09:55→21:17)
[2018-10-03] MEDS: COREG TAB 12.5 MG PO SCH ×2 (09:55→21:17)
[2018-10-03] MEDS: CARDIZEM CD 180 MG PO SCH ×2 (09:55→11:11)
[2018-10-03] MEDS: LOVENOX INJ 40 MG SYR SC SCH (11:32)
[2018-10-04 05:21] LABS: BASOPHILS % (AUTO) 0.6 % (0.2-1.0); EOSINOPHILS # (AUTO) 0.2 x10^3/uL (0.0-0.2); EOSINOPHILS % (AUTO) 2.9 % (0.9-2.9); LYMPHOCYTES # (AUTO) 1.3 X10^3/uL (1.3-2.9); LYMPHOCYTES % (AUTO) 17.9 % (21.0-51.0); MEAN CORPUSCULAR HEMOGLOBIN 28.4 pg (27.0-34.0); MEAN CORPUSCULAR HGB CONC 34.4 g/dL (33.0-35.0); MEAN CORPUSCULAR VOLUME 82.5 fL (80.0-100.0); MEAN PLATELET VOLUME 9.9 fL (7.4-11.0); MONOCYTES % (AUTO) 14.9 % (0.0-13.0); NEUTROPHILS # (AUTO) 4.5 x10^3/uL (2.2-4.8); NEUTROPHILS % (AUTO) 63.7 % (42.0-75.0); PLATELET COUNT 118 X10^3/uL (150.0-450.0); RED BLOOD COUNT 3.88 X10^6/uL (4.7-6.0); RED CELL DISTRIBUTION WIDTH 15.8 % (11.6-16.5)
[2018-10-04] MEDS ORDERED: SYNTHROID 125 mcg TAB PO SCH (06:00)
[2018-10-04 07:31] LABS: ALANINE AMINOTRANSFERASE 21 Units/L (12-78); ALBUMIN 3.2 g/dL (3.4-5.0); ALKALINE PHOSPHATASE 77 Units/L (46-116); ASPARTATE AMINO TRANSFERASE 16 Units/L (15-37); BLOOD UREA NITROGEN 14 mg/dL (7-18); CALCIUM 9.4 mg/dL (8.5-10.1); CARBON DIOXIDE 28.9 mmol/L (21-32); CHLORIDE 99 mmol/L (98-107); COR NA(FOR HYPERGLY) 136 mmol/L (136-145); CREATININE 1.09 mg/dL (0.70-1.30); SODIUM 134 mmol/L (136-145); TOTAL PROTEIN 7.3 g/dL (6.4-8.2); eGFR NON BLACK RACES > 60 (>60)
[2018-10-04] MEDS ORDERED: GLUCOPHAGE ONE (08:59)
[2018-10-04] MEDS: LANOXIN PO SCH (10:04)
[2018-10-04] MEDS: CORDARONE TAB 200 MG PO SCH (10:04)
[2018-10-04] MEDS: K-DUR TAB 20 MEQ PO SCH (10:06)
[2018-10-04] MEDS: ZESTRIL TAB 10 MG PO SCH (10:06)
[2018-10-04] MEDS: PEPCID TAB 20 MG PO SCH (10:06)
[2018-10-04] MEDS: HEMOCYTE-PLUS PO SCH (10:07)
[2018-10-04] MEDS: GLUCOPHAGE PO SCH (10:07)
[2018-10-04] MEDS: CARDIZEM CD 180 MG PO SCH (10:07)
[2018-10-04] MEDS: LASIX PO SCH (10:07)
[2018-10-04] MEDS: XANAX PO SCH (10:07)
[2018-10-04] MEDS: COREG TAB 12.5 MG PO SCH (10:07)
[2018-10-04] MEDS: LOVENOX INJ 40 MG SYR SC SCH (10:08)
[2018-10-04] MEDS: ROXICODONE TAB 15 MG PO SCH (10:08)
[2018-10-04 13:17] VITALS: BP 110/57
== END 2018-10-04 13:25 ==
LOC: MED/SURG 08:29 → ER 08:29 → MED/SURG 10:20
PROVIDERS: ADMIT Internal Medicine; ATTEND Internal Medicine
DX: E03.8 Other specified hypothyroidism; I11.0 Hypertensive heart disease with heart failure; R06.02 Shortness of breath; Z79.01 Long term (current) use of anticoagulants; R94.31 Abnormal electrocardiogram [ECG] [EKG]; I25.10 Atherosclerotic heart disease of native coronary artery without angina pectoris; R07.89 Other chest pain; I50.41 Acute combined systolic (congestive) and diastolic (congestive) heart failure; R53.1 Weakness; R42 Dizziness and giddiness; R26.89 Other abnormalities of gait and mobility; I48.2 Chronic atrial fibrillation; J44.1 Chronic obstructive pulmonary disease with (acute) exacerbation; Z79.899 Other long term (current) drug therapy
CPT/HCPCS: 36415; 71010; 71045; 80053; 80061; 80162; 81003; 82550; 82553; 83735; 83880; 84484; 85025; 85610; 85730; 93005; 94760; 96365; 96372; 96374; 96375; 97110; 97116; 97161; 99284; A4222; S0028; G0378; J1650; J2270; J2405

== ENCOUNTER 2019-01-31 09:30 | Inpatient (IN) ==
[2019-01-31 09:54] VITALS: BMI 47.9
[2019-01-31 10:14] LABS: BASOPHILS # (AUTO) 0.1 X10^3/uL (0.0-0.1); EOSINOPHILS # (AUTO) 0.6 x10^3/uL (0.0-0.2); EOSINOPHILS % (AUTO) 5.5 % (0.9-2.9); HEMATOCRIT 25.3 % (42.0-54.0); HEMOGLOBIN 8.7 g/dL (13.5-18.0); LYMPHOCYTES # (AUTO) 1.7 X10^3/uL (1.3-2.9); LYMPHOCYTES % (AUTO) 16.4 % (21.0-51.0); MEAN CORPUSCULAR HGB CONC 34.4 g/dL (33.0-35.0); MEAN CORPUSCULAR VOLUME 81.4 fL (80.0-100.0); MEAN PLATELET VOLUME 9.2 fL (7.4-11.0); MONOCYTES # (AUTO) 1.6 x10^3/uL (0.3-0.8); MONOCYTES % (AUTO) 15.5 % (0.0-13.0); NEUTROPHILS # (AUTO) 6.4 x10^3/uL (2.2-4.8); NEUTROPHILS % (AUTO) 61.6 % (42.0-75.0); PLATELET COUNT 132 X10^3/uL (150.0-450.0); RED BLOOD COUNT 3.11 X10^6/uL (4.7-6.0); RED CELL DISTRIBUTION WIDTH 14.9 % (11.6-16.5); WHITE BLOOD COUNT 10.4 X10^3/uL (3.6-10.0)
[2019-01-31] MEDS ORDERED: NS 1000 ML 1,000 ML IV ONE (10:14)
--- NOTE | 2019-01-31 10:15 | DR.GENAD ---
HPI Time Seen Time Seen by Provider: 01/31/19 09:31 HPI Comment HPI Comment: Mr. Marino is 68 yo male who presents to the ED for blood per rectum. He states is started 48 hr ago. It happens with each bowel movement he does not have inbetween. He states he has not having much stool with BM's, he mostly passed blood. He denies any pain and states he is not having any fatigue lightheadness, vision changes, headache or any pain at all. He does remember if he has ever had a colonoscopy. PMH PMH Past Medical History: Angina, Anxiety, Arthritis, CHF, COPD, Coronary Artery Disease, Depression, Diabetes, Hypertension and Hypothyroidism Past Surgical History: Yes Surgical History: Unknown Family History Family Medical History: Diabetes Mellitus, Cancer and [place] Social History Do you use any recreational Drugs:: No ROS Review of Systems Constitutional: No Symptoms Reported Eyes: No Symptoms Reported ENTM: No Symptoms Reported Respiratoy: No Symptoms Reported Cardiovascular: No Symptoms Reported Gastrointestinal/Abdominal: Other (rectal bleeding ) Genitourinary: No Symptoms Reported Neurological: No Symptoms Reported Musculoskeletal: No Symptoms Reported Integumentary: No Symptoms Reported Hematologic/Lymphatic: No Symptoms Reported Endocrine: No Symptoms Reported Psychiatric: No Symptoms Reported All Other Systems: Reviewed and Negative PE Vital Signs Vitals: Temperature 98.4 F Pulse Rate [Right Brachial] 80 Pulse Rate 104 Respiratory Rate 20 Blood Pressure [Left Arm] 125/56 Blood Pressure [Right Arm] 152/74 Blood Pressure 124/69 O2 Sat by Pulse Oximetry 97 General Limitations: Other (wheelchair bound ) General Appearance: Alert and In No Apparent Distress Head Head Exam: Normal Inspection, Atraumatic and Normocephalic Eyes Eye exam: Normal Appearance and EOMI ENT ENT Exam: Normal Exam, Normal Oropharynx, Normal External Ear Exam and Mucous Membranes Moist External Ear Exam: Normal External Inspection Nose Exam: Normal Nose Exam Neck Neck Exam: Normal Inspection and Full ROM Chest Chest Inspection: Normal Inspection Respiratory Respiratory Exam: Normal Lung Sounds Bilat Respiratory Exam: Bilateral: Clear to Auscultation Cardiovascular Cardiovascular Exam: Regular Rate, Normal Rhythm and Normal Heart Sounds Abdominal Exam Abdominal Exam: Normal Inspection, Normal Bowel Sounds, Soft and Other (large pannus ) Extremities Extremities Exam: Normal Inspection and Full ROM Neurologic Neurological Exam: Alert, Oriented X3, CN II-XII Intact and Normal Gait Psychiatric Psychiatric Exam: Normal Affect and Normal Mood Skin Skin Exam: Warm, Dry, Intact and Other (no gross blood seen at rectum) MDM Additional Information Additional Information Obtained From: Old Records, Xray Tech and PCP Differential Diagnosis Differential Diagnosis: GI bleed COURSE Treatment Treatment: IVf and protonix, NPO serum ketone negative, insulin held due to NPO status, CT abdomen/pelvis to be finished. Reevaluation 1st: Unchanged (10:00 patient in no distress ) 2nd: Unchanged (no distress 11:13 ) Consultation Called: 10:35 Call Returned: 10:35 Consultation Comments: Dr. Boudreaux and Dr. Ghotra accepted admission. Education/Counseling Education/Counseling: Patient, Family, Education and Counseling Educated On: Treatment, Diagnosis, Prognosis and Needs for Follow Up ROR Labs Reviewed Result Diagrams: 01/31/19 10:07 01/31/19 10:07 Laboratory: WBC 10.4 X10^3/uL (3.6-10.0) H 01/31/19 10:07 RBC 3.11 X10^6/uL (4.7-6.0) L 01/31/19 10:07 Hgb 8.7 g/dL (13.5-18.0) L 01/31/19 10:07 Hct 25.3 % (42.0-54.0) L 01/31/19 10:07 MCV 81.4 fL (80.0-100.0) 01/31/19 10:07 MCH 28.0 pg (27.0-34.0) 01/31/19 10:07 MCHC 34.4 g/dL (33.0-35.0) 01/31/19 10:07 RDW 14.9 % (11.6-16.5) 01/31/19 10:07 Plt Count 132 X10^3/uL (150.0-450.0) L 01/31/19 10:07 MPV 9.2 fL (7.4-11.0) 01/31/19 10:07 Neut % (Auto) 61.6 % (42.0-75.0) 01/31/19 10:07 Lymph % (Auto) 16.4 % (21.0-51.0) L 01/31/19 10:07 [place] % (Auto) 15.5 % (0.0-13.0) H 01/31/19 10:07 Eos % (Auto) 5.5 % (0.9-2.9) H 01/31/19 10:07 Baso % (Auto) 1.0 % (0.2-1.0) 01/31/19 10:07 Neut # (Auto) 6.4 x10^3/uL (2.2-4.8) H 01/31/19 10:07 Lymph # (Auto) 1.7 X10^3/uL (1.3-2.9) 01/31/19 10:07 [place] # (Auto) 1.6 x10^3/uL (0.3-0.8) H 01/31/19 10:07 Eos # (Auto) 0.6 x10^3/uL (0.0-0.2) H 01/31/19 10:07 Baso # (Auto) 0.1 X10^3/uL (0.0-0.1) 01/31/19 10:07 Absolute Nucleated RBC 0.0 /100WBC 01/31/19 10:07 INR Target Range - 01/31/19 10:07 INR 1.62 (0.8-1.3) H 01/31/19 10:07 APTT 35.8 SECONDS (22.9-36.5) 01/31/19 10:07 PTT Comment - 01/31/19 10:07 Sodium 134 mmol/L (136-145) L 01/31/19 10:07 Corrected Sodium 140 mmol/L (136-145) 01/31/19 10:07 Potassium 4.8 mmol/L (3.5-5.1) 01/31/19 10:07 Chloride 101 mmol/L (98-107) 01/31/19 10:07 Carbon Dioxide 29.7 mmol/L (21-32) 01/31/19 10:07 BUN 24 mg/dL (7-18) H 01/31/19 10:07 Creatinine 1.14 mg/dL (0.70-1.30) 01/31/19 10:07 Est GFR (MDRD) Af Amer > 60 (>60) 01/31/19 10:07 Est GFR (MDRD) Non-Af > 60 (>60) 01/31/19 10:07 Glucose 347 mg/dL (65-99) H 01/31/19 10:07 Lactic Acid 1.3 mmol/L (0.4-2.0) 01/31/19 10:07 Calcium 8.7 mg/dL (8.5-10.1) 01/31/19 10:07 Corrected Calcium 9.5 mg/dL (8.5-10.1) 01/31/19 10:07 Total Bilirubin 0.40 mg/dL (0.2-1.0) 01/31/19 10:07 AST 15 Units/L (15-37) 01/31/19 10:07 ALT 19 Units/L (12-78) 01/31/19 10:07 Alkaline Phosphatase 106 Units/L (46-116) 01/31/19 10:07 Total Protein 6.9 g/dL (6.4-8.2) 01/31/19 10:07 Albumin 3.0 g/dL (3.4-5.0) L 01/31/19 10:07 Globulin 3.9 g/dL (2.5-4.5) 01/31/19 10:07 Albumin/Globulin Ratio 0.8 Ratio (1.1-2.1) L 01/31/19 10:07 Lipase 458 Units/L (73-393) H 01/31/19 10:07 Stool Description Fob tube 01/31/19 09:55 Stl Occult Blood (IFOB) Positive (NEGATIVE) A 01/31/19 09:55 Acetone, Semi-Quant Negative (NEGATIVE) 01/31/19 10:07 Opioid Opioid Risk Tool Total: 0 Total Score Risk Category: Low Risk Copyright: [facility] predicting aberrant behaviors Diagnosis Narrative Support Text: Pt stable and in no pain. Time was spent of discussion of all labs and imaging. Patient educated on their health issue. They stated agreement on care plan and understanding on next steps in continual care. Pt was admitted to Dr Ghotra and consulted on by Dr. Boudreaux. prior to 11:00
[2019-01-31] MEDS ORDERED: PROTONIX INJ 40 MG VIAL IVP ONE (10:16)
[2019-01-31] MEDS ORDERED: NS 1000 ML 1,000 ML ONE (10:19)
[2019-01-31] MEDS ORDERED: PROTONIX INJ 40 MG VIAL ONE (10:20)
[2019-01-31 10:27] LABS: ALANINE AMINOTRANSFERASE 19 Units/L (12-78); ALKALINE PHOSPHATASE 106 Units/L (46-116); ASPARTATE AMINO TRANSFERASE 15 Units/L (15-37); BLOOD UREA NITROGEN 24 mg/dL (7-18); CALCIUM 8.7 mg/dL (8.5-10.1); CARBON DIOXIDE 29.7 mmol/L (21-32); CHLORIDE 101 mmol/L (98-107); COR CA(FOR HYPOALB) 9.5 mg/dL (8.5-10.1); COR NA(FOR HYPERGLY) 140 mmol/L (136-145); CREATININE 1.14 mg/dL (0.70-1.30); LIPASE 458 Units/L (73-393); SODIUM 134 mmol/L (136-145); TOTAL PROTEIN 6.9 g/dL (6.4-8.2); eGFR NON BLACK RACES > 60 (>60)
[2019-01-31 10:32] LABS: LACTIC ACID 1.3 mmol/L (0.4-2.0)
[2019-01-31] MEDS ORDERED: ROCEPHIN VIAL 2 GRAMS IM ONE (10:46)
[2019-01-31] MEDS ORDERED: ROCEPHIN VIAL 2 GRAMS ONE (10:49)
[2019-01-31] MEDS ORDERED: TYLENOL 325 MG TAB PO PRN (11:09)
--- NOTE | 2019-01-31 15:45 | CT ---
CT abdomen and pelvis without contrast Indication: Lower GI bleed. Technique: Helical images through the abdomen and pelvis after oral contrast. Coronal and sagittal reformats provided. Comparison: 10/25/2018 ultrasound gallbladder. Findings: Artifact obscures the lower chest some extent, with slightly prominent heart size but no other acute abnormality seen. Review of bone windows shows mild spine and pelvis DJD. Artifact significantly limits evaluation of abdominopelvic soft tissues. Lack of contrast also limits evaluation. Abdomen: Gallbladder is distended and contains gallstones but shows no marked pericholecystic stranding or wall thickening. The liver, spleen, pancreas, adrenal glands, stomach and small bowel show no acute abnormality. No acute colonic abnormality is seen. Appendix is normal. Vascular calcifications are noted mild. The kidneys show no hydroureteronephrosis. Pelvis: Urinary bladder, rectum and prostate gland show no acute abnormality. Impression: 1. No acute abnormality identified, although the examination is limited due to lack of IV contrast and overlying artifact. 2. Vascular calcifications, slightly prominent heart size, gallstones and spine DJD, as above. 3. No specific evidence of gastrointestinal hemorrhage, although the study is limited in detection. Reported By:
[2019-01-31 16:41] LABS: HEMATOCRIT 21.5 % (42.0-54.0); HEMOGLOBIN 7.5 g/dL (13.5-18.0)
[2019-01-31] MEDS: HumuLIN R SUBCUT PRN ×2 (17:49→21:37)
--- NOTE | 2019-01-31 20:46 | DR.CONSULT ---
Consult - Consultation for Day of: Date: 01/31/19 - Chief Complaint Chief Complaint: Patient referred for GI Bleed. Patient with complaints of hematochezia. - History of Present Illness History of Present Illness: Patient is a 68yo male who was referred for GI Bleed. Patient with complaints of hematochezia that started 3 days ago. Patient denies dysphagia, dyspepsia, nausea, vomiting, abdominal pain, constipation, diarrhea and melena. Patient denies previous colon or EGD. Hgb 8.7, Hct 25.3, Plt 132, BUN 24, Creatinine 1.14. Patient noted to have a large amoutn of blood in bedside commode. - Past Medical History Past Medical History: Angina, Coronary Artery Disease, Hypertension, Diabetes, Depression, Anxiety, Hypothyroidism, COPD, Arthritis, CHF Additional Medical History: Paroxysmal Nocturnal Dyspnea, Muscle Weakness, Back Pain, Knee Pain - Past Surgical History Surgical History: Unknown Additional Surgical History: HEART CATHETERIZATION X 2 - Family History Family Medical History: Diabetes Mellitus, Cancer, [place] - Social History Does patient currently use any type of tobacco product: No Have you used tobacco products in the last 12 months: No Type of Tobacco Use: None Does any household member use tobacco: No Alcohol Use: None Drug Use: None - Medications Home Medications: SHRIMP Allergy (Uncoded 02/25/17 04:23) CONTINUE taking the following medications aspirin [Aspirin Low Dose] 81 mg PO DAILY 01/31/19 [History] atorvastatin [Lipitor] 40 mg PO HS 01/31/19 [History] furosemide 40 mg PO BID 01/31/19 [History] olanzapine [Zyprexa] 2.5 mg PO DAILY 01/31/19 [History] sitagliptin [Januvia] 100 mg PO DAILY 01/31/19 [History] - Review of Systems Gastrointestinal: Hematochezia. denies: Nausea, Vomiting, Abdominal Pain, Diarrhea, Constipation, Melena - Physical Exam Vital Signs: Temperature 98.6 F Pulse Rate [Right Brachial] 75 Pulse Rate 104 Respiratory Rate 18 Blood Pressure [Left Arm] 90/50 Blood Pressure [Right Arm] 152/74 Blood Pressure 124/69 O2 Sat by Pulse Oximetry 95 Oriented: Normal, Time, Person, Place Eyes: Normal Ear: Normal Nose: Normal Throat: Normal Respiratory: Clear Throughout Cardiovascular: Normal : Normal Auscultation: Bowel Sounds: Normal Palpation: Normal, Other (no distention). negative: Spleen Enlarged, Liver Enlarged, Mass Pulsatile Tenderness: Normal (no tenderness) Skin: Normal Musculoskeletal: Normal Psychiatric: Normal Mood Description: Calm Affect: Normal Speech Pattern: Clear, Appropriate - Plan Plan: Assessment. 1. Hematochezia, GI Bleed. Plan. 1. Colonoscopy on , clear liquid diet, prep wednesday, Monitor Hgb transfuse as needed. Plan reviewed with Dr. Boudreaux - Allergies Allergies/Adverse Reactions: Allergies Allergy/AdvReac Type Severity Reaction Status Date / Time SHRIMP Allergy Uncoded 02/25/17 04:23
[2019-01-31] MEDS: SNACK - Diabetic Appropriate PO SCH (21:36)
[2019-01-31] MEDS: PROTONIX INJ 40 MG VIAL IVP SCH (21:36)
[2019-01-31] MEDS ORDERED: BENADRYL INJ 50 MG VIAL IVP ONE (22:19)
[2019-01-31] MEDS ORDERED: TYLENOL 325 MG TAB PO ONE (22:19)
[2019-01-31 22:29] LABS: HEMATOCRIT 23.9 % (42.0-54.0); HEMOGLOBIN 8.1 g/dL (13.5-18.0)
[2019-01-31] MEDS: NS 250 ML IV 250 ML ONE (23:30)
[2019-02-01] MEDS ORDERED: LASIX IVP ONE (01:48)
[2019-02-01] MEDS: LASIX IVP ONE ×2 (02:00→02:30)
[2019-02-01] MEDS: NS 250 ML IV 250 ML ONE (02:33)
[2019-02-01] MEDS: HumuLIN R SUBCUT PRN ×3 (05:47→17:15)
[2019-02-01 06:16] LABS: BASOPHILS # (AUTO) 0.1 X10^3/uL (0.0-0.1); BASOPHILS % (AUTO) 0.9 % (0.2-1.0); EOSINOPHILS # (AUTO) 0.5 x10^3/uL (0.0-0.2); HEMATOCRIT 29.9 % (42.0-54.0); HEMOGLOBIN 10.1 g/dL (13.5-18.0); LYMPHOCYTES # (AUTO) 1.6 X10^3/uL (1.3-2.9); LYMPHOCYTES % (AUTO) 15.5 % (21.0-51.0); MEAN CORPUSCULAR HEMOGLOBIN 28.2 pg (27.0-34.0); MEAN CORPUSCULAR HGB CONC 33.8 g/dL (33.0-35.0); MEAN CORPUSCULAR VOLUME 83.5 fL (80.0-100.0); MEAN PLATELET VOLUME 10.3 fL (7.4-11.0); MONOCYTES # (AUTO) 1.4 x10^3/uL (0.3-0.8); MONOCYTES % (AUTO) 13.5 % (0.0-13.0); NEUTROPHILS # (AUTO) 6.7 x10^3/uL (2.2-4.8); NEUTROPHILS % (AUTO) 65.1 % (42.0-75.0); PLATELET COUNT 135 X10^3/uL (150.0-450.0); RED BLOOD COUNT 3.58 X10^6/uL (4.7-6.0); RED CELL DISTRIBUTION WIDTH 15.8 % (11.6-16.5); WHITE BLOOD COUNT 10.4 X10^3/uL (3.6-10.0)
--- NOTE | 2019-02-01 06:25 | RAD ---
HISTORY: Weakness Study: Chest AP portable Comparison: 01/22/2019 Findings: The heart is within normal limits in size. The barbara are normal. The lungs are mildly hyperinflated but free of acute alveolar infiltrates. No pleural effusions are identified. The bony thorax is unremarkable. IMPRESSION: Lungs mildly hyperinflated but clear Reported By:
[2019-02-01 06:40] LABS: ALANINE AMINOTRANSFERASE 18 Units/L (12-78); ALBUMIN 3.4 g/dL (3.4-5.0); ALKALINE PHOSPHATASE 94 Units/L (46-116); ASPARTATE AMINO TRANSFERASE 18 Units/L (15-37); BLOOD UREA NITROGEN 22 mg/dL (7-18); CALCIUM 9.4 mg/dL (8.5-10.1); CARBON DIOXIDE 28.4 mmol/L (21-32); CHLORIDE 100 mmol/L (98-107); COR NA(FOR HYPERGLY) 140 mmol/L (136-145); CREATININE 1.08 mg/dL (0.70-1.30); SODIUM 136 mmol/L (136-145); TOTAL PROTEIN 7.8 g/dL (6.4-8.2); eGFR NON BLACK RACES > 60 (>60)
[2019-02-01 06:51] LABS: PLATELET MORPHOLOGY COMMENT NORMAL (NORMAL)
[2019-02-01] MEDS ORDERED: PATIENT'S HOME MEDICATION (Albuterol Sulfate [Proventil Hfa] 2 PUFF) IN PRN (08:07)
[2019-02-01] MEDS: PROTONIX INJ 40 MG VIAL IVP SCH ×2 (08:10→21:26)
[2019-02-01] MEDS: PROVENTIL NEB TX 0.083% 2.5MG/ 3ML NEB PRN ×2 (08:22→20:20)
[2019-02-01] MEDS: HEMOCYTE-PLUS PO SCH (08:58)
[2019-02-01] MEDS: PEPCID TAB 20 MG PO SCH ×2 (08:59→21:20)
[2019-02-01] MEDS: JANUVIA PO SCH (08:59)
[2019-02-01] MEDS: ROXICODONE TAB 15 MG PO SCH ×2 (08:59→21:21)
[2019-02-01] MEDS: XANAX PO SCH ×2 (09:00→21:20)
[2019-02-01] MEDS: K-DUR TAB 20 MEQ PO SCH (09:16)
[2019-02-01] MEDS: LANOXIN PO SCH (09:37)
[2019-02-01] MEDS: SYNTHROID 137 mcg TAB PO SCH (09:51)
[2019-02-01] MEDS ORDERED: PHARMACY CONSULT - DOSE _____ XX SCH (11:00)
[2019-02-01 12:13] LABS: HEMATOCRIT 26.8 % (42.0-54.0); HEMOGLOBIN 9.3 g/dL (13.5-18.0)
[2019-02-01] MEDS ORDERED: MIRALAX POWDER (255 GRAMS BTL) PO ONE (14:00)
[2019-02-01] MEDS ORDERED: DULCOLAX TAB EC 5 MG PO ONE ×2 (15:00→21:00)
--- NOTE | 2019-02-01 17:30 | DR.H&P ---
H&P - History & Physical for Day of: H&P Date: 01/31/19 - Chief Complaint Chief Complaint: RECTAL BLEEDING - History of Present Illness History of Present Illness: IS A 68 YEAR OLD PATIENT OF OURS WHO PRESENTED TO THE ER FROM [facility] WITH REPORTS OF RECTAL BLEEDING. PATIENT REPORTS THAT IT STARTED APPROXIMATELY 48 YEARS AGO. HE STATES THAT IT HAPPENS WITH EACH BOWEL MOVEMENT, BUT NOT IN BETWEEN. HE DENIES PAIN, FATIGUE, DIZZINESS, OR HEADACHE. ON ARRIVAL, VITALS WERE 98.4-104-20-98%-124/69. LABS WERE OBTAINED. ABNORMAL LAB VALUES INCLUDE THE FOLLOWING: WBC 10.4, RBC 3.11, HGB 8.7, HCT 25.3, INR 1.62, SODIUM 134, BUN 24, GLUCOSE 347, ALBUMIN 3.0. STOOL POSITIVE FOR OCCULT BLOOD. AN ABDOMEN/PELVIS CT WAS OBTAINED AND REVEALED: No acute abnormality identified, although the examination is limited due to lack of IV contrast and overlying artifact. Vascular calcifications, slightly prominent heart size, gallstones and spine DJD, as above. No specific evidence of gastrointestinal hemorrhage, although the study is limited in detection. PATIENT WAS ADMITTED FOR FURTHER EVALUATION AND TREATMENT OF GI BLEED. WE PLAN TO MONITOR H&H. IF HIS HEMOGLOBIN FALLS BELOW 8 g/dL, WE WILL TRANSFUSE WITH TWO UNITS OF PACKED RED BLOOD CELLS. WE WILL RESUME HIS HOME MEDICATIONS AND CONSULT , SOAP GRINDER. OTHERWISE, WE WILL FOLLOW UP WITH AM LABS AND CONTINUE TO MONITOR. - Past Medical History Past Medical History: Angina, Coronary Artery Disease, Hypertension, Diabetes, Depression, Anxiety, Hypothyroidism, COPD, Arthritis, CHF Additional Medical History: Paroxysmal Nocturnal Dyspnea, Muscle Weakness, Back Pain, Knee Pain - Past Surgical History Surgical History: Unknown Additional Surgical History: HEART CATHETERIZATION X 2 - Family History Family Medical History: Diabetes Mellitus, Cancer, [place] - Social History Does patient currently use any type of tobacco product: No Have you used tobacco products in the last 12 months: No Type of Tobacco Use: None Does any household member use tobacco: No Alcohol Use: None Drug Use: None - Medications Home Medications: SHRIMP Allergy (Uncoded 02/25/17 04:23) CONTINUE taking the following medications aspirin [Aspirin Low Dose] 81 mg PO DAILY 01/31/19 [History] atorvastatin [Lipitor] 40 mg PO HS 01/31/19 [History] furosemide 40 mg PO BID 01/31/19 [History] olanzapine [Zyprexa] 2.5 mg PO DAILY 01/31/19 [History] sitagliptin [Januvia] 100 mg PO DAILY 01/31/19 [History] - Review of Systems Constitutional: Weakness Eyes: No Symptoms Reported ENT: No Symptoms Reported Respiratory: No Symptoms Reported Cardiovascular: No Symptoms Reported Gastrointestinal: Hematochezia Genitourinary: No Symptoms Reported Musculoskeletal: No Symptoms Reported Skin: No Symptoms Reported Neurological: Weakness - Physical Exam Vital Signs: Temperature 98.0 F Pulse Rate [Right Brachial] 80 Pulse Rate 104 Respiratory Rate 20 Blood Pressure [Left Arm] 120/68 Blood Pressure [Right Arm] 131/61 Blood Pressure 124/69 O2 Sat by Pulse Oximetry 96 Oriented: Normal, Time, Person, Place Eyes: Normal Ear: Normal Nose: Normal Throat: Normal Respiratory: Diminished Throughout Cardiovascular: Tachycardia : Normal Auscultation: Bowel Sounds: Normal Palpation: Normal Tenderness: Normal Skin: Normal Musculoskeletal: Normal Psychiatric: Normal Mood Description: Calm Affect: Normal Speech Pattern: Clear - Assessment/Plan (1) Anemia Qualifiers: Anemia type: iron deficiency Iron deficiency anemia type: chronic blood loss Qualified Code(s): D50.0 - Iron deficiency anemia secondary to blood loss (chronic) Status: Acute Plan: TRANSFUSE TWO UNITS PRBC IF HGB FALLS BELOW 8, MONITOR H&H (2) GI bleeding Qualifiers: GI bleed type/associated pathology: unspecified gastrointestinal hemorrhage type Qualified Code(s): K92.2 - Gastrointestinal hemorrhage, unspecified Status: Acute Plan: MONITOR H&H, CONSULT GI - Allergies Allergies/Adverse Reactions: Allergies Allergy/AdvReac Type Severity Reaction Status Date / Time SHRIMP Allergy Uncoded 02/25/17 04:23
[2019-02-01 18:04] LABS: HEMOGLOBIN 9.5 g/dL (13.5-18.0)
[2019-02-01] MEDS: LIPITOR TAB 40 MG PO SCH (21:20)
[2019-02-01] MEDS: SNACK - Diabetic Appropriate PO SCH (21:24)
[2019-02-02 00:23] LABS: HEMATOCRIT 27.4 % (42.0-54.0); HEMOGLOBIN 9.4 g/dL (13.5-18.0)
[2019-02-02 05:20] LABS: BASOPHILS # (AUTO) 0.1 X10^3/uL (0.0-0.1); EOSINOPHILS # (AUTO) 0.4 x10^3/uL (0.0-0.2); EOSINOPHILS % (AUTO) 5.8 % (0.9-2.9); HEMATOCRIT 25.6 % (42.0-54.0); HEMOGLOBIN 8.7 g/dL (13.5-18.0); LYMPHOCYTES # (AUTO) 1.5 X10^3/uL (1.3-2.9); LYMPHOCYTES % (AUTO) 23.2 % (21.0-51.0); MEAN CORPUSCULAR HEMOGLOBIN 28.2 pg (27.0-34.0); MEAN CORPUSCULAR HGB CONC 34.1 g/dL (33.0-35.0); MEAN CORPUSCULAR VOLUME 82.7 fL (80.0-100.0); MONOCYTES # (AUTO) 1.1 x10^3/uL (0.3-0.8); MONOCYTES % (AUTO) 17.3 % (0.0-13.0); NEUTROPHILS # (AUTO) 3.5 x10^3/uL (2.2-4.8); NEUTROPHILS % (AUTO) 52.7 % (42.0-75.0); PLATELET COUNT 110 X10^3/uL (150.0-450.0); RED CELL DISTRIBUTION WIDTH 15.3 % (11.6-16.5); WHITE BLOOD COUNT 6.6 X10^3/uL (3.6-10.0)
[2019-02-02 05:35] LABS: ALANINE AMINOTRANSFERASE 18 Units/L (12-78); ALKALINE PHOSPHATASE 68 Units/L (46-116); ASPARTATE AMINO TRANSFERASE 16 Units/L (15-37); BLOOD UREA NITROGEN 11 mg/dL (7-18); CALCIUM 9.3 mg/dL (8.5-10.1); CARBON DIOXIDE 27.7 mmol/L (21-32); CHLORIDE 102 mmol/L (98-107); COR CA(FOR HYPOALB) 10.1 mg/dL (8.5-10.1); COR NA(FOR HYPERGLY) 138 mmol/L (136-145); SODIUM 137 mmol/L (136-145); TOTAL PROTEIN 6.9 g/dL (6.4-8.2); eGFR NON BLACK RACES > 60 (>60)
[2019-02-02] MEDS: SYNTHROID 137 mcg TAB PO SCH (07:10)
[2019-02-02] MEDS: LANOXIN PO SCH (08:02)
[2019-02-02] MEDS: PROTONIX INJ 40 MG VIAL IVP SCH ×2 (08:03→21:35)
[2019-02-02] MEDS ORDERED: NS 1000 ML 1,000 ML ONE (10:46)
[2019-02-02] MEDS: HEMOCYTE-PLUS PO SCH ×2 (10:50→11:37)
[2019-02-02] MEDS ORDERED: DIPRIVAN VIAL 20 ML ONE ×3 (11:09→11:35)
[2019-02-02] MEDS: ROXICODONE TAB 15 MG PO SCH ×3 (11:37→21:39)
[2019-02-02] MEDS: XANAX PO SCH ×2 (11:37→21:35)
[2019-02-02] MEDS: PEPCID TAB 20 MG PO SCH ×2 (11:38→21:35)
[2019-02-02] MEDS: JANUVIA PO SCH (11:38)
[2019-02-02] MEDS: K-DUR TAB 20 MEQ PO SCH (11:38)
[2019-02-02 12:47] LABS: HEMATOCRIT 26.9 % (42.0-54.0); HEMOGLOBIN 9.1 g/dL (13.5-18.0)
[2019-02-02] MEDS: PROVENTIL NEB TX 0.083% 2.5MG/ 3ML NEB PRN (14:35)
[2019-02-02 16:01] LABS: BASOPHILS # (AUTO) 0.1 X10^3/uL (0.0-0.1); BASOPHILS % (AUTO) 0.9 % (0.2-1.0); EOSINOPHILS # (AUTO) 0.5 x10^3/uL (0.0-0.2); EOSINOPHILS % (AUTO) 4.2 % (0.9-2.9); HEMATOCRIT 22.5 % (42.0-54.0); HEMOGLOBIN 7.7 g/dL (13.5-18.0); LYMPHOCYTES # (AUTO) 1.5 X10^3/uL (1.3-2.9); LYMPHOCYTES % (AUTO) 12.8 % (21.0-51.0); MEAN CORPUSCULAR HEMOGLOBIN 28.4 pg (27.0-34.0); MEAN CORPUSCULAR VOLUME 83.5 fL (80.0-100.0); MEAN PLATELET VOLUME 10.2 fL (7.4-11.0); MONOCYTES # (AUTO) 1.6 x10^3/uL (0.3-0.8); NEUTROPHILS # (AUTO) 7.8 x10^3/uL (2.2-4.8); NEUTROPHILS % (AUTO) 68.1 % (42.0-75.0); PLATELET COUNT 137 X10^3/uL (150.0-450.0); RED CELL DISTRIBUTION WIDTH 15.4 % (11.6-16.5); WHITE BLOOD COUNT 11.5 X10^3/uL (3.6-10.0)
[2019-02-02 16:20] LABS: HYPOCHROMASIA SLIGHT; PLATELET MORPHOLOGY COMMENT NORMAL (NORMAL); POIKILOCYTOSIS SLIGHT
[2019-02-02] MEDS ORDERED: NS 500 ML IV 500 ML IV ONE (16:45)
[2019-02-02] MEDS ORDERED: BENADRYL INJ 50 MG VIAL IVP ONE (16:47)
[2019-02-02] MEDS ORDERED: BENADRYL INJ 50 MG VIAL ONE (17:17)
[2019-02-02] MEDS ORDERED: NS 500 ML IV 500 ML ONE (17:17)
[2019-02-02] MEDS: HumuLIN R SUBCUT PRN (17:21)
[2019-02-02] MEDS: LIPITOR TAB 40 MG PO SCH (21:35)
[2019-02-02] MEDS: SNACK - Diabetic Appropriate PO SCH (21:37)
[2019-02-02] MEDS ORDERED: NS 250 ML IV 250 ML ONE (22:04)
[2019-02-03 01:46] LABS: HEMATOCRIT 21.1 % (42.0-54.0); HEMOGLOBIN 7.1 g/dL (13.5-18.0)
[2019-02-03] MEDS: ROXICODONE TAB 15 MG PO SCH ×2 (02:30→10:40)
[2019-02-03] MEDS ORDERED: NS 250 ML IV 250 ML ONE ×2 (04:19→09:18)
[2019-02-03] MEDS: SYNTHROID 137 mcg TAB PO SCH (06:17)
[2019-02-03 08:28] LABS: ALANINE AMINOTRANSFERASE 15 Units/L (12-78); ALBUMIN 2.5 g/dL (3.4-5.0); ALKALINE PHOSPHATASE 56 Units/L (46-116); ASPARTATE AMINO TRANSFERASE 16 Units/L (15-37); BLOOD UREA NITROGEN 13 mg/dL (7-18); CALCIUM 8.5 mg/dL (8.5-10.1); CARBON DIOXIDE 27.2 mmol/L (21-32); CHLORIDE 104 mmol/L (98-107); COR CA(FOR HYPOALB) 9.7 mg/dL (8.5-10.1); COR NA(FOR HYPERGLY) 140 mmol/L (136-145); CREATININE 0.87 mg/dL (0.70-1.30); SODIUM 138 mmol/L (136-145); TOTAL PROTEIN 5.7 g/dL (6.4-8.2); eGFR NON BLACK RACES > 60 (>60)
[2019-02-03 08:29] LABS: BASOPHILS # (AUTO) 0.1 X10^3/uL (0.0-0.1); BASOPHILS % (AUTO) 0.5 % (0.2-1.0); EOSINOPHILS # (AUTO) 0.3 x10^3/uL (0.0-0.2); EOSINOPHILS % (AUTO) 2.4 % (0.9-2.9); HEMOGLOBIN 7.2 g/dL (13.5-18.0); LYMPHOCYTES # (AUTO) 2.4 X10^3/uL (1.3-2.9); LYMPHOCYTES % (AUTO) 19.6 % (21.0-51.0); MEAN CORPUSCULAR HEMOGLOBIN 29.4 pg (27.0-34.0); MEAN CORPUSCULAR HGB CONC 34.1 g/dL (33.0-35.0); MEAN PLATELET VOLUME 9.9 fL (7.4-11.0); MONOCYTES # (AUTO) 2.1 x10^3/uL (0.3-0.8); MONOCYTES % (AUTO) 16.9 % (0.0-13.0); NEUTROPHILS # (AUTO) 7.4 x10^3/uL (2.2-4.8); NEUTROPHILS % (AUTO) 60.6 % (42.0-75.0); PLATELET COUNT 122 X10^3/uL (150.0-450.0); RED BLOOD COUNT 2.44 X10^6/uL (4.7-6.0); RED CELL DISTRIBUTION WIDTH 16.3 % (11.6-16.5); WHITE BLOOD COUNT 12.2 X10^3/uL (3.6-10.0)
[2019-02-03 08:58] LABS: PLATELET MORPHOLOGY COMMENT NORMAL (NORMAL); POIKILOCYTOSIS SLIGHT
[2019-02-03] MEDS: HEMOCYTE-PLUS PO SCH (09:03)
[2019-02-03] MEDS: K-DUR TAB 20 MEQ PO SCH (09:03)
[2019-02-03] MEDS: XANAX PO SCH (09:03)
[2019-02-03] MEDS: PEPCID TAB 20 MG PO SCH (09:03)
[2019-02-03] MEDS: JANUVIA PO SCH (09:03)
[2019-02-03] MEDS: LANOXIN PO SCH (09:04)
[2019-02-03] MEDS: PROTONIX INJ 40 MG VIAL IVP SCH (09:12)
[2019-02-03 10:10] VITALS: BP 108/56
== END 2019-02-03 10:05 | disposition short-term general hospital (02) | DRG 378 ==
LOC: MED/SURG 09:30 → ER 09:30 → OBSVTOIN 11:05 → MED/SURG 12:03
PROVIDERS: ADMIT Internal Medicine; ATTEND Internal Medicine
DX: K62.1 Rectal polyp; K64.8 Other hemorrhoids; K92.2 Gastrointestinal hemorrhage, unspecified; R26.89 Other abnormalities of gait and mobility; I10 Essential (primary) hypertension; D62 Acute posthemorrhagic anemia
CPT/HCPCS: 36415; 36430; 71010; 71045; 74176; 80053; 80162; 82009; 82270; 83605; 83690; 85014; 85018; 85025; 85610; 85730; 86850; 86900; 86901; 86922; 87040; 93005; 94640; 94760; 96365; 96374; 96375; 97110; 97162; 97167; 97530; 99284; A4216; A4222; C9113; P9016; P9017; J0696; J1200; J1815; J1940; J2704; J3490; J7030; J7040; J7050; J7613

== ENCOUNTER 2019-03-27 02:59 | Inpatient (IN) ==
[2019-03-27] MEDS ORDERED: XOPENEX 1.25 MG/3 ML NEBULE NEB ONE (03:05)
[2019-03-27] MEDS ORDERED: XOPENEX 1.25 MG/3 ML NEBULE ONE (03:09)
[2019-03-27 03:10] LABS: ABG BASE EXCESS 0.9 mmol/L (-2.0-2.0)
[2019-03-27 03:12] LABS: ABG ALLEN TEST POS
[2019-03-27] MEDS ORDERED: SOLU-Medrol 125 MG VIAL ONE (03:16)
[2019-03-27] MEDS ORDERED: CARDIZEM INJ 125 MG VIAL ONE (03:17)
[2019-03-27] MEDS ORDERED: CARDIZEM INJ 50 MG VIAL ONE (03:24)
[2019-03-27] MEDS ORDERED: CARDIZEM INJ 50 MG VIAL IVP ONE (03:25)
[2019-03-27] MEDS: CARDIZEM INJ 125 MG VIAL 125 MG in NS 100 ML IV 100 ML IV PRN ×2 (03:30→11:42)
[2019-03-27 03:35] VITALS: BMI 50.3
[2019-03-27] MEDS ORDERED: SOLU-Medrol 125 MG VIAL IVP ONE (03:36)
[2019-03-27 03:37] LABS: BASOPHILS % (AUTO) 0.3 % (0.2-1.0); EOSINOPHILS # (AUTO) 0.2 x10^3/uL (0.0-0.2); EOSINOPHILS % (AUTO) 3.6 % (0.9-2.9); HEMATOCRIT 41.5 % (42.0-54.0); HEMOGLOBIN 13.6 g/dL (13.5-18.0); LYMPHOCYTES # (AUTO) 1.2 X10^3/uL (1.3-2.9); LYMPHOCYTES % (AUTO) 21.3 % (21.0-51.0); MEAN CORPUSCULAR HEMOGLOBIN 28.3 pg (27.0-34.0); MEAN CORPUSCULAR HGB CONC 32.8 g/dL (33.0-35.0); MEAN CORPUSCULAR VOLUME 86.3 fL (80.0-100.0); MEAN PLATELET VOLUME 10.2 fL (7.4-11.0); NEUTROPHILS # (AUTO) 3.3 x10^3/uL (2.2-4.8); NEUTROPHILS % (AUTO) 57.8 % (42.0-75.0); PLATELET COUNT 108 X10^3/uL (150.0-450.0); RED CELL DISTRIBUTION WIDTH 15.3 % (11.6-16.5); WHITE BLOOD COUNT 5.7 X10^3/uL (3.6-10.0)
[2019-03-27 03:50] LABS: BLOOD UREA NITROGEN 15 mg/dL (7-18); CALCIUM 9.7 mg/dL (8.5-10.1); CARBON DIOXIDE 27.6 mmol/L (21-32); CHLORIDE 94 mmol/L (98-107); COR NA(FOR HYPERGLY) 142 mmol/L (136-145); CREATININE 1.16 mg/dL (0.70-1.30); SODIUM 133 mmol/L (136-145); TROPONIN I < 0.02 ng/mL (0-1.5); eGFR NON BLACK RACES > 60 (>60)
[2019-03-27 03:54] LABS: ALANINE AMINOTRANSFERASE 14 Units/L (12-78); ALBUMIN 3.9 g/dL (3.4-5.0); ALKALINE PHOSPHATASE 132 Units/L (46-116); ASPARTATE AMINO TRANSFERASE 20 Units/L (15-37); CKMB % 1.9 % (<4); CREATINE KINASE 52 Units/L (39-308); CREATINE KINASE MB < 1.0 ng/mL (0-4.0); TOTAL PROTEIN 9.3 g/dL (6.4-8.2)
--- NOTE | 2019-03-27 04:00 | DR.CP ---
HPI Time Seen Time Seen by Provider: 03/27/19 03:15 PCP Primary Care Physician: DR. CONCEPCION HPI Comment HPI Comment: PATIENT IS 69YR OLD WHITE MALE WHO WEARS A LIFE VEST WITH HISTORY OF CAD, CHF, HTN, A FIB AND COPD AND OTHERS IS IN ED DIAPHORETIC WITH EXTREME RESPIRATORY DISTRESS BEARLY TALKING DUE TO SOB. WEB DESIGN SPECIALIST SHOW A FIB WITH RAPID VENTRICULAR RESPONSE. HE HAS ELEVALED TEMPEATURE IN THE ED. HIS CHEST PAIN IS PRESSURE PAIN, 10/10 THAT RADIATES TO THE BACK. Complaint Chief Complaint Doctor Comments: SUDDEN ONSET OF CHEST PAIN, SOC, PALPITATION AND DIAPHORESIS WITH INCREASE SHAKING. PATIENT HAVE HEART DISEASE AND CURRENTLY WEARS A LIFE VEST. HE IS IN THE [facility] ON THIS CAMPUS AND WHO WAS BROUGHT TO ED ON A STETCHER FROM THE NURSING. PATIENTS OXYGEN SATURATION WAS LOW AT THE [facility]. Chief Complaint:: TONH STAFF STATES PT IS DIAPHORETIC, HAVING CP, SHAKING, AND O2 SAT IS 89%. TONH STATES PT IS WEARING A LIFEVEST. Reviewed Nurses Notes Review: Yes Source History Provided: [facility] Mode of Arrival Mode of Arrival: Stretcher Timing Onset of Chief Complaint: 03/27/19 Came on: Suddenly Pain: Present Now Duration Duration: Constant Duration: Minutes Location Location of Chest Pain: Chest Chest Pain Radiation Location: Back Context Onset: At rest Cardiac Risk Factors: Hyperlipidemia and HTN PE Risk Factors: Recent Trauma/Surgery History of: Similar pain in the past and Angina Prehospital Care: Oxygen Quality Quality: Pressure like and Heavy Severity Severity: Severe Modifying Factors Worsens: Exertion, Coughing and Movement Impoves: Other (SITTING UP.) Associated Signs and Symptoms Associated Signs and Symptoms: Shortness of Breath, Palpitations, Diaphoresis and Nausea/Vomiting PMH PMH Past Medical History: Yes Past Medical History: Anemia, Angina, Anxiety, Arthritis, CHF, COPD, Coronary Artery Disease, Depression, Diabetes, Hypertension and Hypothyroidism Past Medical History Comment: AFIB Past Surgical History: No Surgical History: Unknown Family History History of Family Medical Conditions: Yes Family Medical History: Diabetes Mellitus, Cancer and [place] Social History Does patient currently use any type of tobacco product: No Have you used tobacco products in the last 12 months: No Type of Tobacco Use: None Does any household member use tobacco: No Alcohol Use: None Do you use any recreational Drugs:: No Lives With: Other Lives Where: [facility] infectious screening In the last 2 months have you had wt loss of >10#?: NO Have you had fever, night sweats or hemotysis?: No Have you traveled outside the country in the last 6 months?: No Isolation: Standard ROS Review of Systems Constitutional: See HPI, Chills, Diaphoresis, Fever, Weakness and Fatigue; negative Loss of Appetite Eyes: No Symptoms Reported and See HPI; negative Blurred Vision, Photophobia and Diplopia ENTM: See HPI and Nose Congestion; negative Ear Pain, Nose Discharge and Throat Pain Respiratoy: See HPI, Productive Cough, Orthopnea, Short of Breath and Wheezing Cardiovascular: See HPI, Chest Pain, Edema, Palpitations and Cyanosis; negative Syncope Gastrointestinal/Abdominal: See HPI and Nausea; negative Abdominal Pain, Constipation, Diarrhea and Vomiting Genitourinary: See HPI; negative Dysuria, Hematuria, Pain and Bleeding Neurological: See HPI, Weakness and Dizziness; negative Headache Musculoskeletal: See HPI, Back Pain and Muscle Pain Hematologic/Lymphatic: See HPI, Easy Bleeding and Easy Bruising Endocrine: No Symptoms Reported and See HPI Psychiatric: No Symptoms Reported and See HPI All Other Systems: Reviewed and Negative PE Vitals Vitals: Temperature 99.1 F Pulse Rate [Apical] 98 Pulse Rate 68 Respiratory Rate 18 Blood Pressure [Left Arm] 139/63 Blood Pressure [Right Arm] 131/61 Blood Pressure 134/67 O2 Sat by Pulse Oximetry 93 General Limitations: No Limitations General Appearance: Alert and In Distress Head Head Exam: Normal Inspection and Atraumatic Eyes Eye exam: PERRL; negative Scleral Icterus and Conjunctival Injection ENT ENT Exam: Normal Oropharynx and Normal External Ear Exam; negative TM's Normal Bilaterally Chest Chest Inspection: Symmetric Chest Wall Rise; negative Tenderness Respiratory Respiratory Exam: Accessory Muscle Use and Respiratory Distress; negative Chest Wall Tenderness Respiratory Exam: Bilateral: Wheezing and Bilateral: Rhonchi, Upper: Wheezing and Lower: Wheezing and Lower: Rhonchi Cardiovascular Cardiovascular Exam: Tachycardia and Irregular Rhythm; negative Systolic Murmur and Diastolic Murmur Pulse: Normal Edema: 3, Lower and Extremity Abdominal Exam Abdominal Exam: Normal Bowel Sounds and Soft; negative Tenderness Extremities Extremities Exam: Normal Capillary Refill and Edema; negative Tenderness and Calf Tenderness Back Back Exam: Tenderness, Paraspinal Tenderness and Vertebral Tenderness Neurologic Neurological Exam: Alert and Oriented X3; negative Motor Sensory Deficit Psychiatric Psychiatric Exam: Normal Affect and Anxious Skin Skin Exam: Erythema and Other (EDEMA LOWER EXTREMETY.) MDM Differential Diagnosis Differential Diagnosis: Angina, Chest Wall Pain, CHF, Costochondritis, Myocardial Infarction, Pericarditis, Pleuritis, Pneumonia (COPD EXACERBATION.) and Pneumothorax COURSE Treatment Treatment: SEE ORDERS. Consultation Consultation Comments: DISCUSS PATIENT WITH Education/Counseling Education/Counseling: Patient Educated On: Diagnosis ROR Labs Reviewed Laboratory Results Reviewed?: Yes Result Diagrams: 03/31/19 04:04 03/31/19 04:04 Laboratory: 03/27/19 03:09 Blood Blood Culture - Final 03/27/19 03:21 Blood Blood Culture - Final WBC 3.8 X10^3/uL (3.6-10.0) 03/31/19 04:04 RBC 4.15 X10^6/uL (4.7-6.0) L 03/31/19 04:04 Hgb 11.9 g/dL (13.5-18.0) L 03/31/19 04:04 Hct 35.9 % (42.0-54.0) L 03/31/19 04:04 MCV 86.4 fL (80.0-100.0) 03/31/19 04:04 MCH 28.7 pg (27.0-34.0) 03/31/19 04:04 MCHC 33.2 g/dL (33.0-35.0) 03/31/19 04:04 RDW 15.1 % (11.6-16.5) 03/31/19 04:04 Plt Count 77 X10^3/uL (150.0-450.0) L 03/31/19 04:04 Plt Count Comment Decreased (ADEQUATE) 03/31/19 04:04 MPV 10.6 fL (7.4-11.0) 03/31/19 04:04 Neut % (Auto) 40.2 % (42.0-75.0) L 03/31/19 04:04 Lymph % (Auto) 33.3 % (21.0-51.0) 03/31/19 04:04 [place] % (Auto) 22.1 % (0.0-13.0) H 03/31/19 04:04 Eos % (Auto) 3.9 % (0.9-2.9) H 03/31/19 04:04 Baso % (Auto) 0.5 % (0.2-1.0) 03/31/19 04:04 Neut # (Auto) 1.5 x10^3/uL (2.2-4.8) L 03/31/19 04:04 Lymph # (Auto) 1.3 X10^3/uL (1.3-2.9) 03/31/19 04:04 [place] # (Auto) 0.8 x10^3/uL (0.3-0.8) 03/31/19 04:04 Eos # (Auto) 0.1 x10^3/uL (0.0-0.2) 03/31/19 04:04 Baso # (Auto) 0.0 X10^3/uL (0.0-0.1) 03/31/19 04:04 Absolute Nucleated RBC 0.5 /100WBC 03/31/19 04:04 Total Counted 100 03/31/19 04:04 Neutrophils % (Manual) 48 % (39-76) 03/31/19 04:04 Band Neutrophils % 5 % (0-10) 03/31/19 04:04 Lymphocytes % (Manual) 29 % (13-43) 03/31/19 04:04 Monocytes % (Manual) 15 % (4-9) H 03/31/19 04:04 Eosinophils % (Manual) 3 % (0-6) 03/31/19 04:04 Plt Morphology Comment Normal (NORMAL) 03/31/19 04:04 RBC Morphology Normal (NORMAL) 03/31/19 04:04 Sample Site Lrad 03/30/19 05:26 ABG pH 7.420 (7.35-7.45) 03/30/19 05:26 ABG pCO2 57.0 mmHg (35.0-45.0) H* 03/30/19 05:26 ABG pO2 77.0 mmHg (80.0-100.0) L 03/30/19 05:26 ABG HCO3 37.0 mmol/L (22-26) H* 03/30/19 05:26 ABG O2 Saturation 95.0 % (90-100) 03/30/19 05:26 ABG Base Excess 10.5 mmol/L (-2.0-2.0) H 03/30/19 05:26 Enrique Test Pos 03/30/19 05:26 A-a Gradient 51.0 mmHg 03/30/19 05:26 FiO2 28.0 03/30/19 05:26 Blood Gas Comments Vida abg well-mtf 03/30/19 05:26 Sodium 133 mmol/L (136-145) L 03/31/19 04:04 Corrected Sodium 135 mmol/L (136-145) L 03/31/19 04:04 Potassium 3.9 mmol/L (3.5-5.1) 03/31/19 04:04 Chloride 95 mmol/L (98-107) L 03/31/19 04:04 Carbon Dioxide 32.0 mmol/L (21-32) 03/31/19 04:04 BUN 15 mg/dL (7-18) 03/31/19 04:04 Creatinine 0.82 mg/dL (0.70-1.30) 03/31/19 04:04 Est GFR (MDRD) Af Amer > 60 (>60) 03/31/19 04:04 Est GFR (MDRD) Non-Af > 60 (>60) 03/31/19 04:04 Glucose 202 mg/dL (65-99) H 03/31/19 04:04 Calcium 8.8 mg/dL (8.5-10.1) 03/31/19 04:04 Corrected Calcium 9.5 mg/dL (8.5-10.1) 03/31/19 04:04 Total Bilirubin 0.40 mg/dL (0.2-1.0) 03/31/19 04:04 AST 22 Units/L (15-37) 03/31/19 04:04 ALT 18 Units/L (12-78) 03/31/19 04:04 Alkaline Phosphatase 98 Units/L (46-116) 03/31/19 04:04 Creatine Kinase 64 Units/L (39-308) 03/27/19 15:08 CK-MB (CK-2) < 1.0 ng/mL (0-4.0) 03/27/19 15:08 CK/CKMB % Calc 1.6 % (<4) 03/27/19 15:08 Troponin I < 0.02 ng/mL (0-1.5) 03/27/19 15:08 Total Protein 8.0 g/dL (6.4-8.2) 03/31/19 04:04 Albumin 3.1 g/dL (3.4-5.0) L 03/31/19 04:04 Globulin 4.9 g/dL (2.5-4.5) H 03/31/19 04:04 Albumin/Globulin Ratio 0.6 Ratio (1.1-2.1) L 03/31/19 04:04 Specimen Type Clean catch urine 03/27/19 11:25 Urine Color Yellow (YELLOW) 03/27/19 11:25 Urine Appearance Slightly hazy (CLEAR) 03/27/19 11:25 Urine pH 5.0 (5.0 - 8.0) 03/27/19 11:25 Ur Specific [place] 1.015 (1.000-1.030) 03/27/19 11:25 Urine Protein 2+ (NEGATIVE) 03/27/19 11:25 Urine Glucose (UA) 4+ (NEGATIVE) 03/27/19 11:25 Urine Ketones 2+ (NEGATIVE) 03/27/19 11:25 Urine Occult Blood Negative (NEGATIVE) 03/27/19 11:25 Urine Nitrite Negative (NEGATIVE) 03/27/19 11:25 Urine Bilirubin Negative (NEGATIVE) 03/27/19 11:25 Urine Urobilinogen Normal (NORMAL) 03/27/19 11:25 Ur Leukocyte Esterase Negative (NEGATIVE) 03/27/19 11:25 Urine RBC None seen /HPF (NONE SEEN) 03/27/19 11:25 Urine WBC None seen /HPF (NONE SEEN) 03/27/19 11:25 Ur Squamous Epith Cells Negative /HPF (NEGATIVE) 03/27/19 11:25 Urine Bacteria Negative /HPF (NEGATIVE) 03/27/19 11:25 Urine Mucus Few /HPF (NEGATIVE) 03/27/19 11:25 Ur Culture Indicated? No/not indicated 03/27/19 11:25 Digoxin 0.50 ng/mL (0.9-2) L 03/31/19 04:04 XRAY XRAY Interpreted by: Radiologist XRAY Findings: REPORT NOTED AND DISCUSS WITH PATIENT. EKG Rhythm: Afib (WITH RVR.) Opioid Opioid Risk Tool Age (Rafael box if 16-45): No Total: 0 Total Score Risk Category: Low Risk Copyright: [facility] predicting aberrant behaviors Diagnosis Discharge Problem: Obstructive chronic bronchitis with exacerbation Atrial fibrillation Qualifiers: Atrial fibrillation type: chronic Qualified Code(s): I48.2 - Chronic atrial fibrillation Chest pain Qualifiers: Chest pain type: precordial pain Qualified Code(s): R07.2 - Precordial pain Instructions Instructions: Chronic Obstructive Pulmonary Disease Exacerbation, [id number] Coping With Diabetes Sleep Apnea, [id number] Type 2 Diabetes Mellitus, Self Care, Adult, [id number] Hypertension, [id number] Acute Respiratory Failure, Adult Heart Failure, [id number] Atrial Fibrillation, [id number] Forms: Patient Portal
[2019-03-27 05:10] LABS: ABG HCO3 30.2 mmol/L (22-26)
[2019-03-27 05:11] LABS: ABG ALLEN TEST POS
[2019-03-27] MEDS ORDERED: PATIENT'S HOME MEDICATION (Albuterol Sulfate [Proventil Hfa] 2 PUFF) IN PRN (08:04)
[2019-03-27] MEDS: XANAX PO SCH ×2 (08:40→21:37)
[2019-03-27 09:16] LABS: CKMB % 1.8 % (<4); CREATINE KINASE 56 Units/L (39-308); CREATINE KINASE MB < 1.0 ng/mL (0-4.0); TROPONIN I 0.02 ng/mL (0-1.5)
--- NOTE | 2019-03-27 11:30 | DR.H&P ---
H&P - History & Physical for Day of: H&P Date: 03/27/19 - Chief Complaint Chief Complaint: SOB, CHEST PAIN, DIAPHORESIS - History of Present Illness History of Present Illness: IS A 68 YEAR OLD PATIENT OF OURS WHO PRESENTED TO THE ER FROM [facility] WITH REPORTS OF CHEST PAIN, DIAPHORESIS, AND SHORTNESS OF BREATH. ON ARRIVAL, HE IS NOTED TO BE WEARING A LIFEVEST. ONARRIVAL, VITALS WERE 98.4-146-25-89%-132/61. LABS WERE OBTAINED. ABNORMAL LAB VALUES INCLUDE THE FOLLOWING: HCT 41.5, PLT COUNT 108, SODIUM 133, CHLORIDE 94, GLUCOSE 469, ALK PHOS 132, TOTAL PROTEIN 9.3, GLOBULIN 5.4. CARDIAC ENZYMES WITHIN NORMAL LIMITS. AN ABG WAS OBTAINED AND REVEALED: PH 7.240, PC02 70.0, P02 58.0, HC03 30.0, 02 SATURATION 84.0, BASE EXCESS 0.9. BLOOD CULTURES PENDING. A CHEST XRAY WAS OBTAINED AND REVEALED: CARDIOMEGALY WITH MILD PULMONARY VASCULAR CONGESTION. AN EKG WAS OBTAINED AND REVEALED: ATRIAL FIBRILLATION WITH HR 144. HE WAS GIVEN SOLU-MEDROL 125MG IV X 1, RESPIRATORY TREATMENT, CARDIZEM 10MG IV X 1, AND THEN STARTED ON A CARDIZEM DRIP. HE WAS PLACED ON THE BIPAP. WE ADMITTED PATIENT HIM TO THE INTENSIVE CARE UNIT FOR FURTHER EVALUATION AND TREATMENT OF A-FIB WITH RVR, RESPIRATORY DISTRESS WITH HYPERCAPNEA AND HYPOXIA, AND PULMONARY VASCULAR CONGESTION. WE WILL RESUME HIS HOME MEDICATIONS AND CONTINUE TO MONITOR. - Past Medical History Past Medical History: Angina, Coronary Artery Disease, Hypertension, Diabetes, Depression, Anxiety, Hypothyroidism, Anemia, COPD, Arthritis, CHF Additional Medical History: Paroxysmal Nocturnal Dyspnea, Muscle Weakness, Back Pain, Knee Pain - Past Surgical History Surgical History: Unknown Additional Surgical History: HEART CATHETERIZATION X 2 - Family History Family Medical History: Diabetes Mellitus, Cancer, [place] - Social History Does patient currently use any type of tobacco product: No Have you used tobacco products in the last 12 months: No Type of Tobacco Use: None Does any household member use tobacco: No Alcohol Use: None Prescription drug monitoring program results: PDMP reviewed and no concerns identified - Medications Home Medications: SHRIMP Allergy (Uncoded 02/25/17 04:23) CONTINUE taking the following medications duloxetine 60 mg PO DAILY 03/27/19 [History] levothyroxine 150 mcg PO QDAY 03/27/19 [History] - Review of Systems Constitutional: Weakness Eyes: No Symptoms Reported ENT: No Symptoms Reported Respiratory: See HPI, Shortness of Breath, SOB with Excertion Cardiovascular: Chest Pain, Palpitations Gastrointestinal: No Symptoms Reported Genitourinary: No Symptoms Reported Musculoskeletal: No Symptoms Reported Skin: No Symptoms Reported Neurological: Weakness - Physical Exam Vital Signs: Temperature 97.1 F Pulse Rate [Apical] 79 Pulse Rate 87 Respiratory Rate 28 Blood Pressure [Left Arm] 94/49 Blood Pressure [Right Arm] 131/61 Blood Pressure 127/55 O2 Sat by Pulse Oximetry 96 Oriented: Normal Eyes: Normal Ear: Normal Nose: Normal Throat: Normal Respiratory: Diminished Throughout Cardiovascular: Tachycardia : Normal Auscultation: Bowel Sounds: Normal Palpation: Normal Tenderness: Normal Skin: Normal Musculoskeletal: Normal Psychiatric: Normal Mood Description: Calm Affect: Normal Speech Pattern: Clear - Assessment/Plan (1) Atrial fibrillation with RVR Status: Acute Plan: CARDIZEM DRIP, GLUING MACHINE OPERATOR AUTOMATIC, SUPPLEMENTAL OXYGEN, CONTINUE TO MONITOR (2) Respiratory failure with hypoxia and hypercapnia Qualifiers: Chronicity: acute on chronic Qualified Code(s): J96.21 - Acute and chronic respiratory failure with hypoxia; J96.22 - Acute and chronic respiratory failure with hypercapnia Status: Acute Plan: RESPIRATORY TX , SUPPLEMENTAL OXYGEN, BIPAP, CONTINUE TO MONITOR (3) CHF (congestive heart failure) Qualifiers: Heart failure chronicity: acute on chronic Status: Acute Plan: RESPIRATORY TX, SUPPLEMENTAL OXYGEN, LASIX, BIPAP, CONTINUE TO MONITOR - Allergies Allergies/Adverse Reactions: Allergies Allergy/AdvReac Type Severity Reaction Status Date / Time SHRIMP Allergy Uncoded 02/25/17 04:23
[2019-03-27 11:40] LABS: APPEARANCE,URINE SLIGHTLY HAZY (CLEAR); BILIRUBIN,URINE NEGATIVE (NEGATIVE); BLOOD/HEMOGLOBIN,URINE NEGATIVE (NEGATIVE); COLOR,URINE YELLOW (YELLOW); GLUCOSE, URINE 4+ (NEGATIVE); KETONES,URINE 2+ (NEGATIVE); LEUKOCYTE ESTERASE ,URINE NEGATIVE (NEGATIVE); NITRITES,URINE NEGATIVE (NEGATIVE); PROTEIN,URINE 2+ (NEGATIVE); UROBILINOGEN,URINE NORMAL (NORMAL)
[2019-03-27 11:45] LABS: BACTERIA,URINE NEGATIVE /HPF (NEGATIVE); MUCUS,URINE FEW /HPF (NEGATIVE); RBC,URINE NONE SEEN /HPF (NONE SEEN); SQUAMOUS EPITHELIAL CELL,UR NEGATIVE /HPF (NEGATIVE)
[2019-03-27] MEDS: PEPCID TAB 20 MG PO SCH ×2 (11:45→21:35)
[2019-03-27] MEDS: COREG TAB 12.5 MG PO SCH ×2 (11:45→21:34)
[2019-03-27] MEDS: ASPIRIN EC 81 MG PO SCH (11:45)
[2019-03-27] MEDS: JANUVIA PO SCH (11:46)
[2019-03-27] MEDS: K-DUR TAB 20 MEQ PO SCH (11:46)
[2019-03-27] MEDS: LANOXIN PO SCH (11:46)
[2019-03-27] MEDS: LASIX PO SCH ×2 (11:46→21:34)
[2019-03-27] MEDS: HEMOCYTE-PLUS PO SCH (11:47)
[2019-03-27] MEDS: SYNTHROID 150 mcg TAB PO SCH (11:47)
[2019-03-27] MEDS: ROXICODONE TAB 15 MG PO SCH ×2 (11:48→21:35)
[2019-03-27] MEDS: ZESTRIL TAB 10 MG PO SCH ×2 (11:51→21:38)
[2019-03-27] MEDS: CYMBALTA PO SCH (11:52)
[2019-03-27] MEDS: XOPENEX 1.25 MG/3 ML NEBULE NEB PRN ×2 (12:13→18:09)
[2019-03-27 15:44] LABS: CKMB % 1.6 % (<4); CREATINE KINASE 64 Units/L (39-308); CREATINE KINASE MB < 1.0 ng/mL (0-4.0); TROPONIN I < 0.02 ng/mL (0-1.5)
[2019-03-27] MEDS ORDERED: HumuLIN R ONE (16:43)
[2019-03-27] MEDS: HumuLIN R SUBCUT PRN ×2 (16:45→21:47)
[2019-03-27] MEDS ORDERED: SNACK - Diabetic Appropriate PO SCH (20:00)
[2019-03-27] MEDS: SNACK - Diabetic Appropriate PO SCH (20:00)
[2019-03-27] MEDS: LIPITOR TAB 40 MG PO SCH (21:35)
[2019-03-28] MEDS: XOPENEX 1.25 MG/3 ML NEBULE NEB PRN ×3 (05:12→19:54)
[2019-03-28 05:22] LABS: ABG BASE EXCESS 6.8 mmol/L (-2.0-2.0)
[2019-03-28 05:24] LABS: ABG ALLEN TEST POS; ABG HCO3 33.3 mmol/L (22-26)
[2019-03-28 05:55] LABS: BASOPHILS % (AUTO) 0.1 % (0.2-1.0); EOSINOPHILS % (AUTO) 0.1 % (0.9-2.9); HEMATOCRIT 34.6 % (42.0-54.0); HEMOGLOBIN 11.6 g/dL (13.5-18.0); LYMPHOCYTES # (AUTO) 0.3 X10^3/uL (1.3-2.9); LYMPHOCYTES % (AUTO) 7.9 % (21.0-51.0); MEAN CORPUSCULAR HEMOGLOBIN 28.2 pg (27.0-34.0); MEAN CORPUSCULAR HGB CONC 33.5 g/dL (33.0-35.0); MEAN PLATELET VOLUME 10.3 fL (7.4-11.0); MONOCYTES # (AUTO) 0.9 x10^3/uL (0.3-0.8); MONOCYTES % (AUTO) 25.1 % (0.0-13.0); NEUTROPHILS # (AUTO) 2.5 x10^3/uL (2.2-4.8); NEUTROPHILS % (AUTO) 66.8 % (42.0-75.0); PLATELET COUNT 85 X10^3/uL (150.0-450.0); RED BLOOD COUNT 4.12 X10^6/uL (4.7-6.0); RED CELL DISTRIBUTION WIDTH 14.7 % (11.6-16.5); WHITE BLOOD COUNT 3.7 X10^3/uL (3.6-10.0)
[2019-03-28 06:07] LABS: ALANINE AMINOTRANSFERASE 23 Units/L (12-78); ALBUMIN 3.3 g/dL (3.4-5.0); ALKALINE PHOSPHATASE 97 Units/L (46-116); ASPARTATE AMINO TRANSFERASE 19 Units/L (15-37); BLOOD UREA NITROGEN 31 mg/dL (7-18); CALCIUM 9.3 mg/dL (8.5-10.1); CHLORIDE 95 mmol/L (98-107); COR CA(FOR HYPOALB) 9.9 mg/dL (8.5-10.1); COR NA(FOR HYPERGLY) 140 mmol/L (136-145); CREATININE 1.12 mg/dL (0.70-1.30); SODIUM 132 mmol/L (136-145); TOTAL PROTEIN 8.1 g/dL (6.4-8.2); eGFR NON BLACK RACES > 60 (>60)
[2019-03-28] MEDS: HumuLIN R SUBCUT PRN ×4 (06:16→20:35)
[2019-03-28 06:38] LABS: PLATELET MORPHOLOGY COMMENT NORMAL (NORMAL)
[2019-03-28] MEDS: SYNTHROID 150 mcg TAB PO SCH (06:40)
[2019-03-28] MEDS: XANAX PO SCH ×2 (08:13→20:35)
[2019-03-28] MEDS: CYMBALTA PO SCH (08:13)
[2019-03-28] MEDS: K-DUR TAB 20 MEQ PO SCH (08:13)
[2019-03-28] MEDS: HEMOCYTE-PLUS PO SCH (08:13)
[2019-03-28] MEDS: LANOXIN PO SCH (08:14)
[2019-03-28] MEDS: LASIX PO SCH ×2 (08:14→20:33)
[2019-03-28] MEDS: ASPIRIN EC 81 MG PO SCH (08:14)
[2019-03-28] MEDS: PEPCID TAB 20 MG PO SCH ×2 (08:14→20:33)
[2019-03-28] MEDS: JANUVIA PO SCH (08:14)
[2019-03-28] MEDS: ROXICODONE TAB 15 MG PO SCH ×3 (08:16→20:43)
[2019-03-28] MEDS: COREG TAB 12.5 MG PO SCH ×2 (08:16→20:33)
[2019-03-28] MEDS: ZESTRIL TAB 10 MG PO SCH ×2 (08:16→20:35)
[2019-03-28] MEDS ORDERED: PHARMACY CONSULT - DOSE _____ XX SCH (11:00)
[2019-03-28] MEDS: LEVEMIR SC SCH ×2 (11:34→20:34)
[2019-03-28] MEDS ORDERED: SNACK - Diabetic Appropriate PO SCH (20:00)
[2019-03-28] MEDS: SNACK - Diabetic Appropriate PO SCH (20:32)
[2019-03-28] MEDS: LIPITOR TAB 40 MG PO SCH (20:33)
[2019-03-28] MEDS ORDERED: CARDIZEM CD 120 MG PO SCH (21:00)
[2019-03-29 04:34] LABS: ABG BASE EXCESS 11.6 mmol/L (-2.0-2.0)
[2019-03-29 04:35] LABS: ABG HCO3 38.3 mmol/L (22-26)
[2019-03-29 04:36] LABS: ABG ALLEN TEST POS
[2019-03-29 05:08] LABS: BASOPHILS % (AUTO) 0.6 % (0.2-1.0); EOSINOPHILS % (AUTO) 1.3 % (0.9-2.9); HEMATOCRIT 35.3 % (42.0-54.0); HEMOGLOBIN 11.6 g/dL (13.5-18.0); LYMPHOCYTES # (AUTO) 0.6 X10^3/uL (1.3-2.9); MEAN CORPUSCULAR HEMOGLOBIN 27.9 pg (27.0-34.0); MEAN CORPUSCULAR HGB CONC 32.8 g/dL (33.0-35.0); MEAN PLATELET VOLUME 10.6 fL (7.4-11.0); MONOCYTES # (AUTO) 0.8 x10^3/uL (0.3-0.8); NEUTROPHILS # (AUTO) 1.8 x10^3/uL (2.2-4.8); NEUTROPHILS % (AUTO) 54.1 % (42.0-75.0); PLATELET COUNT 88 X10^3/uL (150.0-450.0); RED BLOOD COUNT 4.16 X10^6/uL (4.7-6.0); RED CELL DISTRIBUTION WIDTH 14.8 % (11.6-16.5); WHITE BLOOD COUNT 3.3 X10^3/uL (3.6-10.0)
[2019-03-29 05:20] LABS: PLATELET MORPHOLOGY COMMENT NORMAL (NORMAL)
[2019-03-29 05:23] LABS: ALANINE AMINOTRANSFERASE 19 Units/L (12-78); ALBUMIN 3.3 g/dL (3.4-5.0); ALKALINE PHOSPHATASE 86 Units/L (46-116); ASPARTATE AMINO TRANSFERASE 20 Units/L (15-37); BLOOD UREA NITROGEN 21 mg/dL (7-18); CALCIUM 9.2 mg/dL (8.5-10.1); CARBON DIOXIDE 33.9 mmol/L (21-32); CHLORIDE 96 mmol/L (98-107); COR CA(FOR HYPOALB) 9.8 mg/dL (8.5-10.1); COR NA(FOR HYPERGLY) 136 mmol/L (136-145); SODIUM 134 mmol/L (136-145); eGFR NON BLACK RACES > 60 (>60)
[2019-03-29] MEDS: HumuLIN R SUBCUT PRN ×4 (05:53→20:14)
[2019-03-29] MEDS: XOPENEX 1.25 MG/3 ML NEBULE NEB PRN ×3 (06:04→17:05)
[2019-03-29] MEDS: SYNTHROID 150 mcg TAB PO SCH (06:41)
--- NOTE | 2019-03-29 08:32 | PCM.PROG ---
Progress Note - Progress Note for Day of Date of Exam: 03/28/19 - Subjective Subjective: WAS ADMITTED FOR A-FIB, PULMONARY VASCULAR CONGESTION, AND RESPIRATORY DISTRESS. TODAY, HE IS ALERT AND ORIENTED, SITTING UP IN CHAIR ON MORNING ROUNDS. HE CONTINUES WITH SHORTNESS OF BREATH, BUT REPORTS IMPROVEMENT SINCE YESTERDAY. ON EXAMINATION, HEART IS REGULAR IN RATE AND RHYT HM. BILATERAL LUNGS ARE NOTED WITH DIMINISHED LUNG SOUNDS THROUGHOUT. ABDOMEN IS ROUND, SOFT, AND NON-TENDER. NORMAL BOWEL SOUNDS ARE NOTED IN ALL QUADRANTS. BILATERAL LOWER EXTREMITIES ARE NOTED WITH 1+ PITTING EDEMA. HIS VITALS THIS MORNING ARE: 97.8-82-25-99%-114/55. LABS WERE OBTAINED. ABNORMAL LAB VALUES INCLUDE THE FOLLOWING: RBC 4.12, HGB 11.6, HCT 34.6, PLT COUNT 85, SODIUM 132, CHLORIDE 95, BUN 31, GLUCOSE 420, ALBUMIN 3.3, GLOBULIN 4.8. BLOOD CULTURES ARE PENDING. A CHEST XRAY WAS OBTAINED THIS MORNING. IT REVEALED: CONTINUED CARDIOMEGALY WITHOUT CONGESTIVE HEART FAILURE ON TODAYS EXAMINATION. TODAY, WE PLAN TO DISCONTINUE THE CARDIZEM DRIP AND START CARDIZEM CD 120MG PO HS, DECRE ASE COREG TO 12.5MG PO BID, CHANGE OXYCODONE TO 7.5MG PO QID, AND START LEVEMIR 10 UNITS SC BID. OTHERWISE, WE PLAN TO FOLLOW UP WITH AM LABS AND CONTINUE TO MONITOR. - Past Medical Family Social History Past Med/Fam/Surg Hx: No changes since H&P Allergies: Allergies SHRIMP Allergy (Uncoded 02/25/17 04:23) - Review of Systems ROS: No change since H&P - Vital Signs and I&O's Vital Signs: Temperature 97.3 F Pulse Rate [Apical] 98 Pulse Rate 94 Respiratory Rate 25 Blood Pressure [Left Arm] 139/63 Blood Pressure [Right Arm] 131/61 Blood Pressure 101/54 O2 Sat by Pulse Oximetry 97 Intake and Output: Intake & Output 03/26/19 03/27/19 03/28/19 03/29/19 11:59 11:59 11:59 11:59 Intake Total 320 / 320 2340 / 2340 1830 / 1830 Output Total 500 / 500 3550 / 3550 2500 / 2500 Balance -180 / -180 -1210 / -1210 -670 / -670 - Physical Exam Oriented: Normal Eyes: Normal Ear: Normal Nose: Normal Throat: Normal Respiratory: Generalized, Diminished Cardiovascular: Normal, Edema (BLE 1+ PITTING EDEMA ). negative: S3, S4, Murmur : Normal Auscultation: Bowel Sounds: Normal Palpation: Normal Tenderness: Normal Skin: Normal Musculoskeletal: Normal Psychiatric: Normal Mood Description: Calm Affect: Normal Speech Pattern: Clear, Appropriate - Laboratory and Diagnostics Result Diagrams: 03/29/19 04:10 03/29/19 04:10 Labs: 03/27/19 03:21 Blood Blood Culture - Preliminary Laboratory WBC 3.3 X10^3/uL (3.6-10.0) L 03/29/19 04:10 RBC 4.16 X10^6/uL (4.7-6.0) L 03/29/19 04:10 Hgb 11.6 g/dL (13.5-18.0) L 03/29/19 04:10 Hct 35.3 % (42.0-54.0) L 03/29/19 04:10 MCV 85.0 fL (80.0-100.0) 03/29/19 04:10 MCH 27.9 pg (27.0-34.0) 03/29/19 04:10 MCHC 32.8 g/dL (33.0-35.0) L 03/29/19 04:10 RDW 14.8 % (11.6-16.5) 03/29/19 04:10 Plt Count 88 X10^3/uL (150.0-450.0) L 03/29/19 04:10 Plt Count Comment Decreased (ADEQUATE) 03/29/19 04:10 MPV 10.6 fL (7.4-11.0) 03/29/19 04:10 Neut % (Auto) 54.1 % (42.0-75.0) 03/29/19 04:10 Lymph % (Auto) 19.0 % (21.0-51.0) L 03/29/19 04:10 [place] % (Auto) 25.0 % (0.0-13.0) H 03/29/19 04:10 Eos % (Auto) 1.3 % (0.9-2.9) 03/29/19 04:10 Baso % (Auto) 0.6 % (0.2-1.0) 03/29/19 04:10 Neut # (Auto) 1.8 x10^3/uL (2.2-4.8) L 03/29/19 04:10 Lymph # (Auto) 0.6 X10^3/uL (1.3-2.9) L 03/29/19 04:10 [place] # (Auto) 0.8 x10^3/uL (0.3-0.8) 03/29/19 04:10 Eos # (Auto) 0.0 x10^3/uL (0.0-0.2) 03/29/19 04:10 Baso # (Auto) 0.0 X10^3/uL (0.0-0.1) 03/29/19 04:10 Absolute Nucleated RBC 0.3 /100WBC 03/29/19 04:10 Total Counted 100 03/29/19 04:10 Neutrophils % (Manual) 58 % (39-76) 03/29/19 04:10 Lymphocytes % (Manual) 19 % (13-43) 03/29/19 04:10 Monocytes % (Manual) 21 % (4-9) H 03/29/19 04:10 Eosinophils % (Manual) 2 % (0-6) 03/29/19 04:10 Plt Morphology Comment Normal (NORMAL) 03/29/19 04:10 RBC Morphology Normal (NORMAL) 03/29/19 04:10 Sample Site Lr 03/29/19 04:27 ABG pH 7.420 (7.35-7.45) 03/29/19 04:27 ABG pCO2 59.0 mmHg (35.0-45.0) H* 03/29/19 04:27 ABG pO2 86.0 mmHg (80.0-100.0) 03/29/19 04:27 ABG HCO3 38.3 mmol/L (22-26) H* 03/29/19 04:27 ABG O2 Saturation 97.0 % (90-100) 03/29/19 04:27 ABG Base Excess 11.6 mmol/L (-2.0-2.0) H 03/29/19 04:27 Enrique Test Pos 03/29/19 04:27 A-a Gradient 40.0 mmHg 03/29/19 04:27 FiO2 28.0 03/29/19 04:27 Blood Gas Comments Vida well ae 03/29/19 04:27 Sodium 134 mmol/L (136-145) L 03/29/19 04:10 Corrected Sodium 136 mmol/L (136-145) 03/29/19 04:10 Potassium 4.0 mmol/L (3.5-5.1) 03/29/19 04:10 Chloride 96 mmol/L (98-107) L 03/29/19 04:10 Carbon Dioxide 33.9 mmol/L (21-32) H 03/29/19 04:10 BUN 21 mg/dL (7-18) H 03/29/19 04:10 Creatinine 0.80 mg/dL (0.70-1.30) 03/29/19 04:10 Est GFR (MDRD) Af Amer > 60 (>60) 03/29/19 04:10 Est GFR (MDRD) Non-Af > 60 (>60) 03/29/19 04:10 Glucose 193 mg/dL (65-99) H 03/29/19 04:10 Calcium 9.2 mg/dL (8.5-10.1) 03/29/19 04:10 Corrected Calcium 9.8 mg/dL (8.5-10.1) 03/29/19 04:10 Total Bilirubin 0.40 mg/dL (0.2-1.0) 03/29/19 04:10 AST 20 Units/L (15-37) 03/29/19 04:10 ALT 19 Units/L (12-78) 03/29/19 04:10 Alkaline Phosphatase 86 Units/L (46-116) 03/29/19 04:10 Creatine Kinase 64 Units/L (39-308) 03/27/19 15:08 CK-MB (CK-2) < 1.0 ng/mL (0-4.0) 03/27/19 15:08 CK/CKMB % Calc 1.6 % (<4) 03/27/19 15:08 Troponin I < 0.02 ng/mL (0-1.5) 03/27/19 15:08 Total Protein 8.0 g/dL (6.4-8.2) 03/29/19 04:10 Albumin 3.3 g/dL (3.4-5.0) L 03/29/19 04:10 Globulin 4.7 g/dL (2.5-4.5) H 03/29/19 04:10 Albumin/Globulin Ratio 0.7 Ratio (1.1-2.1) L 03/29/19 04:10 Specimen Type Clean catch urine 03/27/19 11:25 Urine Color Yellow (YELLOW) 03/27/19 11:25 Urine Appearance Slightly hazy (CLEAR) 03/27/19 11:25 Urine pH 5.0 (5.0 - 8.0) 03/27/19 11:25 Ur Specific [place] 1.015 (1.000-1.030) 03/27/19 11:25 Urine Protein 2+ (NEGATIVE) 03/27/19 11:25 Urine Glucose (UA) 4+ (NEGATIVE) 03/27/19 11:25 Urine Ketones 2+ (NEGATIVE) 03/27/19 11:25 Urine Occult Blood Negative (NEGATIVE) 03/27/19 11:25 Urine Nitrite Negative (NEGATIVE) 03/27/19 11:25 Urine Bilirubin Negative (NEGATIVE) 03/27/19 11:25 Urine Urobilinogen Normal (NORMAL) 03/27/19 11:25 Ur Leukocyte Esterase Negative (NEGATIVE) 03/27/19 11:25 Urine RBC None seen /HPF (NONE SEEN) 03/27/19 11:25 Urine WBC None seen /HPF (NONE SEEN) 03/27/19 11:25 Ur Squamous Epith Cells Negative /HPF (NEGATIVE) 03/27/19 11:25 Urine Bacteria Negative /HPF (NEGATIVE) 03/27/19 11:25 Urine Mucus Few /HPF (NEGATIVE) 03/27/19 11:25 Ur Culture Indicated? No/not indicated 03/27/19 11:25 - Plan (1) Atrial fibrillation with RVR Status: Acute Plan: DISCONTINUE CARDIZEM DRIP, START CARDIZEM CD 120MG PO HS, OFFICE RN, SUPPLEMENTAL OXYGEN, CONTINUE TO MONITOR (2) Respiratory failure with hypoxia and hypercapnia Status: Acute Qualifiers: Chronicity: acute on chronic Qualified Code(s): J96.21 - Acute and chronic respiratory failure with hypoxia; J96.22 - Acute and chronic respiratory failure with hypercapnia Plan: RESPIRATORY TX , SUPPLEMENTAL OXYGEN, BIPAP, CONTINUE TO MONITOR (3) CHF (congestive heart failure) Status: Acute Qualifiers: Heart failure chronicity: acute on chronic Plan: RESPIRATORY TX, SUPPLEMENTAL OXYGEN, LASIX, BIPAP, CONTINUE TO MONITOR (4) Diabetes Status: Chronic Qualifiers: Diabetes mellitus type: type 2 Diabetes mellitus skilled nursing insulin 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
[2019-03-29] MEDS: JANUVIA PO SCH (08:56)
[2019-03-29] MEDS: ASPIRIN EC 81 MG PO SCH (08:56)
[2019-03-29] MEDS: ROXICODONE TAB 15 MG PO SCH ×4 (08:56→20:12)
[2019-03-29] MEDS: LANOXIN PO SCH (08:57)
[2019-03-29] MEDS: XANAX PO SCH ×2 (08:57→20:12)
[2019-03-29] MEDS: HEMOCYTE-PLUS PO SCH (08:57)
[2019-03-29] MEDS: CYMBALTA PO SCH (08:58)
[2019-03-29] MEDS: K-DUR TAB 20 MEQ PO SCH (08:58)
[2019-03-29] MEDS: LASIX PO SCH ×2 (08:58→20:11)
[2019-03-29] MEDS: COREG TAB 12.5 MG PO SCH (08:59)
[2019-03-29] MEDS: PEPCID TAB 20 MG PO SCH ×2 (08:59→20:11)
[2019-03-29] MEDS: LEVEMIR SC SCH ×2 (09:00→20:13)
[2019-03-29] MEDS: ZESTRIL TAB 10 MG PO SCH ×2 (09:04→20:12)
[2019-03-29] MEDS: COREG TAB 6.25 MG PO SCH ×2 (10:40→20:11)
[2019-03-29] MEDS: LIPITOR TAB 40 MG PO SCH (20:11)
[2019-03-29] MEDS: SNACK - Diabetic Appropriate PO SCH (20:11)
[2019-03-29] MEDS: CARDIZEM CD 180 MG PO SCH (20:12)
[2019-03-30 05:21] LABS: BASOPHILS % (AUTO) 0.7 % (0.2-1.0); EOSINOPHILS # (AUTO) 0.1 x10^3/uL (0.0-0.2); EOSINOPHILS % (AUTO) 2.5 % (0.9-2.9); HEMATOCRIT 35.3 % (42.0-54.0); HEMOGLOBIN 11.9 g/dL (13.5-18.0); LYMPHOCYTES # (AUTO) 0.9 X10^3/uL (1.3-2.9); LYMPHOCYTES % (AUTO) 30.6 % (21.0-51.0); MEAN CORPUSCULAR HEMOGLOBIN 28.2 pg (27.0-34.0); MEAN CORPUSCULAR HGB CONC 33.7 g/dL (33.0-35.0); MEAN CORPUSCULAR VOLUME 83.5 fL (80.0-100.0); MEAN PLATELET VOLUME 10.5 fL (7.4-11.0); MONOCYTES # (AUTO) 0.8 x10^3/uL (0.3-0.8); MONOCYTES % (AUTO) 27.1 % (0.0-13.0); NEUTROPHILS # (AUTO) 1.2 x10^3/uL (2.2-4.8); NEUTROPHILS % (AUTO) 39.1 % (42.0-75.0); PLATELET COUNT 83 X10^3/uL (150.0-450.0); RED BLOOD COUNT 4.23 X10^6/uL (4.7-6.0); RED CELL DISTRIBUTION WIDTH 15.1 % (11.6-16.5)
[2019-03-30 05:32] LABS: ABG BASE EXCESS 10.5 mmol/L (-2.0-2.0)
[2019-03-30 05:34] LABS: PLATELET MORPHOLOGY COMMENT NORMAL (NORMAL)
[2019-03-30 05:36] LABS: ABG ALLEN TEST POS
[2019-03-30] MEDS: HumuLIN R SUBCUT PRN ×4 (05:37→20:23)
[2019-03-30 05:39] LABS: ALANINE AMINOTRANSFERASE 18 Units/L (12-78); ALBUMIN 3.2 g/dL (3.4-5.0); ALKALINE PHOSPHATASE 88 Units/L (46-116); ASPARTATE AMINO TRANSFERASE 23 Units/L (15-37); BLOOD UREA NITROGEN 16 mg/dL (7-18); CALCIUM 8.8 mg/dL (8.5-10.1); CHLORIDE 94 mmol/L (98-107); COR CA(FOR HYPOALB) 9.4 mg/dL (8.5-10.1); COR NA(FOR HYPERGLY) 135 mmol/L (136-145); CREATININE 0.83 mg/dL (0.70-1.30); DIGOXIN 0.57 ng/mL (0.9-2); SODIUM 133 mmol/L (136-145); TOTAL PROTEIN 7.9 g/dL (6.4-8.2); eGFR NON BLACK RACES > 60 (>60)
[2019-03-30] MEDS: SYNTHROID 150 mcg TAB PO SCH (06:32)
[2019-03-30] MEDS: XOPENEX 1.25 MG/3 ML NEBULE NEB PRN (09:25)
[2019-03-30] MEDS: ZESTRIL TAB 10 MG PO SCH ×2 (09:34→20:21)
[2019-03-30] MEDS: ASPIRIN EC 81 MG PO SCH (09:34)
[2019-03-30] MEDS: K-DUR TAB 20 MEQ PO SCH (09:35)
[2019-03-30] MEDS: PEPCID TAB 20 MG PO SCH ×2 (09:35→20:21)
[2019-03-30] MEDS: LANOXIN PO SCH (09:36)
[2019-03-30] MEDS: HEMOCYTE-PLUS PO SCH (09:36)
[2019-03-30] MEDS: JANUVIA PO SCH (09:37)
[2019-03-30] MEDS: ROXICODONE TAB 15 MG PO SCH ×4 (09:37→20:22)
[2019-03-30] MEDS: XANAX PO SCH ×2 (09:38→20:21)
[2019-03-30] MEDS: LASIX PO SCH ×2 (09:38→20:22)
[2019-03-30] MEDS: LEVEMIR SC SCH ×2 (09:39→20:22)
[2019-03-30] MEDS: COREG TAB 6.25 MG PO SCH ×2 (09:39→20:21)
[2019-03-30] MEDS: CYMBALTA PO SCH (09:41)
--- NOTE | 2019-03-30 14:44 | PCM.PROG ---
Progress Note - Progress Note for Day of Date of Exam: 03/29/19 - Subjective Subjective: WAS ADMITTED FOR A-FIB, PULMONARY VASCULAR CONGESTION, AND RESPIRATORY DISTRESS. TODAY, HE IS ALERT AND ORIENTED, SITTING UP IN CHAIR ON MORNING ROUNDS. HE CONTINUES WITH SHORTNESS OF BREATH, BUT REPORTS IMPROVEMENT SINCE YESTERDAY. ON EXAMINATION, HEART IS REGULAR IN RATE AND RHYT HM. BILATERAL LUNGS ARE NOTED WITH DIMINISHED LUNG SOUNDS THROUGHOUT. ABDOMEN IS ROUND, SOFT, AND NON-TENDER. NORMAL BOWEL SOUNDS ARE NOTED IN ALL QUADRANTS. BILATERAL LOWER EXTREMITIES CONTINUE WITH 1+ PITTING EDEMA. HIS VITALS THIS MORNING ARE: 97.9-97-30-95%-103/55. LABS WERE OBTAINED. ABNORMAL LAB VALUES INCLUDE THE FOLLOWING: RBC wbc 3.3, rbc 4.16, hgb 11.6, hct 35.3, plt count 88, sodium 134, chloride 96, carbon dioxide 33.9, bun 21, glucose 193, albumin 3.3, globulin 4.7, digoxin 0.57. BLOOD CULTURES ARE PENDING. AN ABG WAS OBTAINED AND REVEALED: ph 7.420, pc02 59.0, p02 86.0, hc03 38.3. BLOOD CULTURES ARE PENDING. CHEST XRAY WAS OBTAINED THIS MORNING. IT REVEALED: CONTINUED CARDIOMEGALY WITHOUT DEFINITE CONGESTIVE HEART FAILURE. LUNGS HYPERINFLATED BUT CLEAR. THE CARDIZEM DRIP HAS BEEN DISCONTINUED. TODAY, WE WILL INCREASE THE CARDIZEM TO 180MG PO HS, DECREASE COREG TO 6.25MG PO BID, AND INCREASE THE LEVEMIR TO 12 UNITS SC BID. OTHERWISE, WE PLAN TO FOLLOW UP WITH AM LABS AND CONTINUE TO MONITOR. - Past Medical Family Social History Past Med/Fam/Surg Hx: No changes since H&P Allergies: Allergies SHRIMP Allergy (Uncoded 02/25/17 04:23) - Review of Systems ROS: No change since H&P - Vital Signs and I&O's Vital Signs: Temperature 98.2 F Pulse Rate [Apical] 98 Pulse Rate 65 Respiratory Rate 24 Blood Pressure [Left Arm] 139/63 Blood Pressure [Right Arm] 131/61 Blood Pressure 103/55 O2 Sat by Pulse Oximetry 94 Intake and Output: Intake & Output 03/28/19 03/29/19 03/30/19 03/31/19 11:59 11:59 11:59 11:59 Intake Total 2340 / 2340 1830 / 1830 1714 / 1714 Output Total 3550 / 3550 2500 / 2500 2550 / 2550 Balance -1210 / -1210 -670 / -670 -836 / -836 - Physical Exam Oriented: Normal Eyes: Normal Ear: Normal Nose: Normal Throat: Normal Respiratory: Generalized, Diminished Cardiovascular: Normal, Edema (BLE 1+ PITTING EDEMA ). negative: S3, S4, Murmur : Normal Auscultation: Bowel Sounds: Normal Tenderness: Normal Skin: Normal Musculoskeletal: Normal Psychiatric: Normal Mood Description: Calm Affect: Normal Speech Pattern: Clear, Appropriate - Laboratory and Diagnostics Result Diagrams: 03/30/19 04:20 03/30/19 04:20 Labs: 03/27/19 03:09 Blood Blood Culture - Preliminary 03/27/19 03:21 Blood Blood Culture - Final Laboratory WBC 3.0 X10^3/uL (3.6-10.0) L 03/30/19 04:20 RBC 4.23 X10^6/uL (4.7-6.0) L 03/30/19 04:20 Hgb 11.9 g/dL (13.5-18.0) L 03/30/19 04:20 Hct 35.3 % (42.0-54.0) L 03/30/19 04:20 MCV 83.5 fL (80.0-100.0) 03/30/19 04:20 MCH 28.2 pg (27.0-34.0) 03/30/19 04:20 MCHC 33.7 g/dL (33.0-35.0) 03/30/19 04:20 RDW 15.1 % (11.6-16.5) 03/30/19 04:20 Plt Count 83 X10^3/uL (150.0-450.0) L 03/30/19 04:20 Plt Count Comment Decreased (ADEQUATE) 03/30/19 04:20 MPV 10.5 fL (7.4-11.0) 03/30/19 04:20 Neut % (Auto) 39.1 % (42.0-75.0) L 03/30/19 04:20 Lymph % (Auto) 30.6 % (21.0-51.0) 03/30/19 04:20 [place] % (Auto) 27.1 % (0.0-13.0) H 03/30/19 04:20 Eos % (Auto) 2.5 % (0.9-2.9) 03/30/19 04:20 Baso % (Auto) 0.7 % (0.2-1.0) 03/30/19 04:20 Neut # (Auto) 1.2 x10^3/uL (2.2-4.8) L 03/30/19 04:20 Lymph # (Auto) 0.9 X10^3/uL (1.3-2.9) L 03/30/19 04:20 [place] # (Auto) 0.8 x10^3/uL (0.3-0.8) 03/30/19 04:20 Eos # (Auto) 0.1 x10^3/uL (0.0-0.2) 03/30/19 04:20 Baso # (Auto) 0.0 X10^3/uL (0.0-0.1) 03/30/19 04:20 Absolute Nucleated RBC 0.2 /100WBC 03/30/19 04:20 Total Counted 100 03/30/19 04:20 Neutrophils % (Manual) 44 % (39-76) 03/30/19 04:20 Lymphocytes % (Manual) 37 % (13-43) 03/30/19 04:20 Monocytes % (Manual) 19 % (4-9) H 03/30/19 04:20 Eosinophils % (Manual) 2 % (0-6) 03/29/19 04:10 Plt Morphology Comment Normal (NORMAL) 03/30/19 04:20 RBC Morphology Normal (NORMAL) 03/30/19 04:20 Sample Site Lrad 03/30/19 05:26 ABG pH 7.420 (7.35-7.45) 03/30/19 05:26 ABG pCO2 57.0 mmHg (35.0-45.0) H* 03/30/19 05:26 ABG pO2 77.0 mmHg (80.0-100.0) L 03/30/19 05:26 ABG HCO3 37.0 mmol/L (22-26) H* 03/30/19 05:26 ABG O2 Saturation 95.0 % (90-100) 03/30/19 05:26 ABG Base Excess 10.5 mmol/L (-2.0-2.0) H 03/30/19 05:26 Enrique Test Pos 03/30/19 05:26 A-a Gradient 51.0 mmHg 03/30/19 05:26 FiO2 28.0 03/30/19 05:26 Blood Gas Comments Vida abg well-mtf 03/30/19 05:26 Sodium 133 mmol/L (136-145) L 03/30/19 04:20 Corrected Sodium 135 mmol/L (136-145) L 03/30/19 04:20 Potassium 4.0 mmol/L (3.5-5.1) 03/30/19 04:20 Chloride 94 mmol/L (98-107) L 03/30/19 04:20 Carbon Dioxide 33.0 mmol/L (21-32) H 03/30/19 04:20 BUN 16 mg/dL (7-18) 03/30/19 04:20 Creatinine 0.83 mg/dL (0.70-1.30) 03/30/19 04:20 Est GFR (MDRD) Af Amer > 60 (>60) 03/30/19 04:20 Est GFR (MDRD) Non-Af > 60 (>60) 03/30/19 04:20 Glucose 166 mg/dL (65-99) H 03/30/19 04:20 Calcium 8.8 mg/dL (8.5-10.1) 03/30/19 04:20 Corrected Calcium 9.4 mg/dL (8.5-10.1) 03/30/19 04:20 Total Bilirubin 0.40 mg/dL (0.2-1.0) 03/30/19 04:20 AST 23 Units/L (15-37) 03/30/19 04:20 ALT 18 Units/L (12-78) 03/30/19 04:20 Alkaline Phosphatase 88 Units/L (46-116) 03/30/19 04:20 Creatine Kinase 64 Units/L (39-308) 03/27/19 15:08 CK-MB (CK-2) < 1.0 ng/mL (0-4.0) 03/27/19 15:08 CK/CKMB % Calc 1.6 % (<4) 03/27/19 15:08 Troponin I < 0.02 ng/mL (0-1.5) 03/27/19 15:08 Total Protein 7.9 g/dL (6.4-8.2) 03/30/19 04:20 Albumin 3.2 g/dL (3.4-5.0) L 03/30/19 04:20 Globulin 4.7 g/dL (2.5-4.5) H 03/30/19 04:20 Albumin/Globulin Ratio 0.7 Ratio (1.1-2.1) L 03/30/19 04:20 Specimen Type Clean catch urine 03/27/19 11:25 Urine Color Yellow (YELLOW) 03/27/19 11:25 Urine Appearance Slightly hazy (CLEAR) 03/27/19 11:25 Urine pH 5.0 (5.0 - 8.0) 03/27/19 11:25 Ur Specific [place] 1.015 (1.000-1.030) 03/27/19 11:25 Urine Protein 2+ (NEGATIVE) 03/27/19 11:25 Urine Glucose (UA) 4+ (NEGATIVE) 03/27/19 11:25 Urine Ketones 2+ (NEGATIVE) 03/27/19 11:25 Urine Occult Blood Negative (NEGATIVE) 03/27/19 11:25 Urine Nitrite Negative (NEGATIVE) 03/27/19 11:25 Urine Bilirubin Negative (NEGATIVE) 03/27/19 11:25 Urine Urobilinogen Normal (NORMAL) 03/27/19 11:25 Ur Leukocyte Esterase Negative (NEGATIVE) 03/27/19 11:25 Urine RBC None seen /HPF (NONE SEEN) 03/27/19 11:25 Urine WBC None seen /HPF (NONE SEEN) 03/27/19 11:25 Ur Squamous Epith Cells Negative /HPF (NEGATIVE) 03/27/19 11:25 Urine Bacteria Negative /HPF (NEGATIVE) 03/27/19 11:25 Urine Mucus Few /HPF (NEGATIVE) 03/27/19 11:25 Ur Culture Indicated? No/not indicated 03/27/19 11:25 Digoxin 0.57 ng/mL (0.9-2) L 03/30/19 04:20 - Plan (1) Atrial fibrillation with RVR Status: Acute Plan: CARDIZEM CD 180MG PO HS, COREG 6.25MG PO BID, ATTRACTIONS ASSOCIATE, SUPPLEMENTAL OXYGEN, CONTINUE TO MONITOR (2) Respiratory failure with hypoxia and hypercapnia Status: Acute Qualifiers: Chronicity: acute on chronic Qualified Code(s): J96.21 - Acute and chronic respiratory failure with hypoxia; J96.22 - Acute and chronic respiratory failure with hypercapnia Plan: RESPIRATORY TX , SUPPLEMENTAL OXYGEN, BIPAP, CONTINUE TO MONITOR (3) CHF (congestive heart failure) Status: Acute Qualifiers: Heart failure chronicity: acute on chronic Plan: RESPIRATORY TX, SUPPLEMENTAL OXYGEN, LASIX, BIPAP, CONTINUE TO MONITOR (4) Diabetes Status: Chronic Qualifiers: Diabetes mellitus type: type 2 Diabetes mellitus manager long term care insulin use: without care home use Diabetes mellitus complication status: without complication Qualified Code(s): E11.9 - Type 2 diabetes mellitus without complications Plan: HUMULIN R SLIDING SCALE, LEVEMIR 12 UNITS SC BID, CONTINUE TO MONITOR
[2019-03-30] MEDS: CARDIZEM CD 180 MG PO SCH (20:21)
[2019-03-30] MEDS: LIPITOR TAB 40 MG PO SCH (20:21)
[2019-03-30] MEDS: SNACK - Diabetic Appropriate PO SCH (20:21)
[2019-03-30] MEDS ORDERED: COLACE CAP 100 MG PO PRN (20:29)
[2019-03-31] MEDS: XOPENEX 1.25 MG/3 ML NEBULE NEB PRN ×2 (05:05→11:38)
[2019-03-31 05:11] LABS: BASOPHILS % (AUTO) 0.5 % (0.2-1.0); EOSINOPHILS # (AUTO) 0.1 x10^3/uL (0.0-0.2); EOSINOPHILS % (AUTO) 3.9 % (0.9-2.9); HEMATOCRIT 35.9 % (42.0-54.0); HEMOGLOBIN 11.9 g/dL (13.5-18.0); LYMPHOCYTES # (AUTO) 1.3 X10^3/uL (1.3-2.9); LYMPHOCYTES % (AUTO) 33.3 % (21.0-51.0); MEAN CORPUSCULAR HEMOGLOBIN 28.7 pg (27.0-34.0); MEAN CORPUSCULAR HGB CONC 33.2 g/dL (33.0-35.0); MEAN CORPUSCULAR VOLUME 86.4 fL (80.0-100.0); MEAN PLATELET VOLUME 10.6 fL (7.4-11.0); MONOCYTES # (AUTO) 0.8 x10^3/uL (0.3-0.8); MONOCYTES % (AUTO) 22.1 % (0.0-13.0); NEUTROPHILS # (AUTO) 1.5 x10^3/uL (2.2-4.8); NEUTROPHILS % (AUTO) 40.2 % (42.0-75.0); PLATELET COUNT 77 X10^3/uL (150.0-450.0); RED BLOOD COUNT 4.15 X10^6/uL (4.7-6.0); RED CELL DISTRIBUTION WIDTH 15.1 % (11.6-16.5); WHITE BLOOD COUNT 3.8 X10^3/uL (3.6-10.0)
[2019-03-31 05:27] LABS: ALANINE AMINOTRANSFERASE 18 Units/L (12-78); ALBUMIN 3.1 g/dL (3.4-5.0); ALKALINE PHOSPHATASE 98 Units/L (46-116); ASPARTATE AMINO TRANSFERASE 22 Units/L (15-37); BLOOD UREA NITROGEN 15 mg/dL (7-18); CALCIUM 8.8 mg/dL (8.5-10.1); CHLORIDE 95 mmol/L (98-107); COR CA(FOR HYPOALB) 9.5 mg/dL (8.5-10.1); COR NA(FOR HYPERGLY) 135 mmol/L (136-145); CREATININE 0.82 mg/dL (0.70-1.30); SODIUM 133 mmol/L (136-145); eGFR NON BLACK RACES > 60 (>60)
[2019-03-31] MEDS: HumuLIN R SUBCUT PRN ×2 (05:35→11:13)
[2019-03-31 05:52] LABS: BAND NEUTROPHILS % 5 % (0-10); PLATELET MORPHOLOGY COMMENT NORMAL (NORMAL)
[2019-03-31] MEDS: SYNTHROID 150 mcg TAB PO SCH (06:31)
[2019-03-31] MEDS: K-DUR TAB 20 MEQ PO SCH (08:30)
[2019-03-31] MEDS: COREG TAB 6.25 MG PO SCH (08:30)
[2019-03-31] MEDS: XANAX PO SCH (08:30)
[2019-03-31] MEDS: ROXICODONE TAB 15 MG PO SCH ×2 (08:31→13:43)
[2019-03-31] MEDS: JANUVIA PO SCH (08:31)
[2019-03-31] MEDS: LASIX PO SCH (08:32)
[2019-03-31] MEDS: HEMOCYTE-PLUS PO SCH (08:32)
[2019-03-31] MEDS: ZESTRIL TAB 10 MG PO SCH (08:32)
[2019-03-31] MEDS: PEPCID TAB 20 MG PO SCH (08:33)
[2019-03-31] MEDS: ASPIRIN EC 81 MG PO SCH (08:33)
[2019-03-31] MEDS: LANOXIN PO SCH (08:33)
[2019-03-31] MEDS: LEVEMIR SC SCH (08:38)
[2019-03-31] MEDS: CYMBALTA PO SCH (08:41)
--- NOTE | 2019-03-31 10:42 | PCM.PROG ---
Progress Note - Progress Note for Day of Date of Exam: 03/30/19 - Subjective Subjective: WAS ADMITTED FOR A-FIB, PULMONARY VASCULAR CONGESTION, AND RESPIRATORY DISTRESS. TODAY, HE IS ALERT AND ORIENTED, SITTING UP IN CHAIR ON MORNING ROUNDS. HE CONTINUES WITH MILD SHORTNESS OF BREATH TODAY. ON EXAMINATION, HEART IS REGULAR IN RATE AND RHYTHM. BILATERAL LUNGS ARE NOTED WITH DIMINISHED LUNG SOUNDS THROUGHOUT. ABDOMEN IS ROUND, SOFT, AND NON-TENDER. NORMAL BOWEL SOUNDS ARE NOTED IN ALL QUADRANTS. BILATERAL LOWER EXTREMITIES CONTINUE WITH 1+ PITTING EDEMA. HIS VITALS THIS MORNING ARE: 98.2-89-23-92%-121/57. LABS WERE OBTAINED. ABNORMAL LAB VALUES INCLUDE THE FOLLOWING: WBC 3.0, RBC 4.23, HGB 11.9, HCT 35.3, PLT COUNT 83, SODIUM 133, CHLORIDE 94, CARBON DIOXIDE 33.0, GLUCOSE 166, ALBUMIN 3.2, GLOBULIN 4.7. BLOOD CULTURES ARE PENDING. AN ABG WAS OBTAINED AND REVEALED: PH 7.420, PC02, P02 77.0, HC03 37.0, 02 SATURATION 95.0. BLOOD CULTURES ARE PENDING. CHEST XRAY WAS OBTAINED THIS MORNING. IT REVEALED: CONTINUED CARDIOMEGALY WITHOUT CONGESTIVE HEART FAILURE. LUNGS MILDLY HYPERINFLATED BUT CLEAR. TODAY, WE WILL CONTINUE WITH CURRENT PLAN OF CARE. OTHERWISE, WE PLAN TO FOLLOW UP WITH AM LABS AND CONTINUE TO MONITOR. - Past Medical Family Social History Past Med/Fam/Surg Hx: No changes since H&P Allergies: Allergies SHRIMP Allergy (Uncoded 02/25/17 04:23) - Review of Systems ROS: No change since H&P - Vital Signs and I&O's Vital Signs: Temperature 99.1 F Pulse Rate [Apical] 98 Pulse Rate 78 Respiratory Rate 11 Blood Pressure [Left Arm] 139/63 Blood Pressure [Right Arm] 131/61 Blood Pressure 118/58 O2 Sat by Pulse Oximetry 95 Intake and Output: Intake & Output 03/28/19 03/29/19 03/30/19 03/31/19 11:59 11:59 11:59 11:59 Intake Total 2340 / 2340 1830 / 1830 1714 / 1714 700 / 700 Output Total 3550 / 3550 2500 / 2500 2550 / 2550 1850 / 1850 Balance -1210 / -1210 -670 / -670 -836 / -836 -1150 / -1150 - Physical Exam Oriented: Normal Eyes: Normal Ear: Normal Nose: Normal Throat: Normal Respiratory: Generalized, Diminished Cardiovascular: Normal, Edema (BLE 1+ PITTING EDEMA ). negative: S3, S4, Murmur : Normal Auscultation: Bowel Sounds: Normal Tenderness: Normal Skin: Normal Musculoskeletal: Normal Psychiatric: Normal Mood Description: Calm Affect: Normal Speech Pattern: Clear, Appropriate - Laboratory and Diagnostics Result Diagrams: 03/31/19 04:04 03/31/19 04:04 Labs: 03/27/19 03:09 Blood Blood Culture - Preliminary 03/27/19 03:21 Blood Blood Culture - Final Laboratory WBC 3.8 X10^3/uL (3.6-10.0) 03/31/19 04:04 RBC 4.15 X10^6/uL (4.7-6.0) L 03/31/19 04:04 Hgb 11.9 g/dL (13.5-18.0) L 03/31/19 04:04 Hct 35.9 % (42.0-54.0) L 03/31/19 04:04 MCV 86.4 fL (80.0-100.0) 03/31/19 04:04 MCH 28.7 pg (27.0-34.0) 03/31/19 04:04 MCHC 33.2 g/dL (33.0-35.0) 03/31/19 04:04 RDW 15.1 % (11.6-16.5) 03/31/19 04:04 Plt Count 77 X10^3/uL (150.0-450.0) L 03/31/19 04:04 Plt Count Comment Decreased (ADEQUATE) 03/31/19 04:04 MPV 10.6 fL (7.4-11.0) 03/31/19 04:04 Neut % (Auto) 40.2 % (42.0-75.0) L 03/31/19 04:04 Lymph % (Auto) 33.3 % (21.0-51.0) 03/31/19 04:04 [place] % (Auto) 22.1 % (0.0-13.0) H 03/31/19 04:04 Eos % (Auto) 3.9 % (0.9-2.9) H 03/31/19 04:04 Baso % (Auto) 0.5 % (0.2-1.0) 03/31/19 04:04 Neut # (Auto) 1.5 x10^3/uL (2.2-4.8) L 03/31/19 04:04 Lymph # (Auto) 1.3 X10^3/uL (1.3-2.9) 03/31/19 04:04 [place] # (Auto) 0.8 x10^3/uL (0.3-0.8) 03/31/19 04:04 Eos # (Auto) 0.1 x10^3/uL (0.0-0.2) 03/31/19 04:04 Baso # (Auto) 0.0 X10^3/uL (0.0-0.1) 03/31/19 04:04 Absolute Nucleated RBC 0.5 /100WBC 03/31/19 04:04 Total Counted 100 03/31/19 04:04 Neutrophils % (Manual) 48 % (39-76) 03/31/19 04:04 Band Neutrophils % 5 % (0-10) 03/31/19 04:04 Lymphocytes % (Manual) 29 % (13-43) 03/31/19 04:04 Monocytes % (Manual) 15 % (4-9) H 03/31/19 04:04 Eosinophils % (Manual) 3 % (0-6) 03/31/19 04:04 Plt Morphology Comment Normal (NORMAL) 03/31/19 04:04 RBC Morphology Normal (NORMAL) 03/31/19 04:04 Sample Site Lrad 03/30/19 05:26 ABG pH 7.420 (7.35-7.45) 03/30/19 05:26 ABG pCO2 57.0 mmHg (35.0-45.0) H* 03/30/19 05:26 ABG pO2 77.0 mmHg (80.0-100.0) L 03/30/19 05:26 ABG HCO3 37.0 mmol/L (22-26) H* 03/30/19 05:26 ABG O2 Saturation 95.0 % (90-100) 03/30/19 05:26 ABG Base Excess 10.5 mmol/L (-2.0-2.0) H 03/30/19 05:26 Enrique Test Pos 03/30/19 05:26 A-a Gradient 51.0 mmHg 03/30/19 05:26 FiO2 28.0 03/30/19 05:26 Blood Gas Comments Vida abg well-mtf 03/30/19 05:26 Sodium 133 mmol/L (136-145) L 03/31/19 04:04 Corrected Sodium 135 mmol/L (136-145) L 03/31/19 04:04 Potassium 3.9 mmol/L (3.5-5.1) 03/31/19 04:04 Chloride 95 mmol/L (98-107) L 03/31/19 04:04 Carbon Dioxide 32.0 mmol/L (21-32) 03/31/19 04:04 BUN 15 mg/dL (7-18) 03/31/19 04:04 Creatinine 0.82 mg/dL (0.70-1.30) 03/31/19 04:04 Est GFR (MDRD) Af Amer > 60 (>60) 03/31/19 04:04 Est GFR (MDRD) Non-Af > 60 (>60) 03/31/19 04:04 Glucose 202 mg/dL (65-99) H 03/31/19 04:04 Calcium 8.8 mg/dL (8.5-10.1) 03/31/19 04:04 Corrected Calcium 9.5 mg/dL (8.5-10.1) 03/31/19 04:04 Total Bilirubin 0.40 mg/dL (0.2-1.0) 03/31/19 04:04 AST 22 Units/L (15-37) 03/31/19 04:04 ALT 18 Units/L (12-78) 03/31/19 04:04 Alkaline Phosphatase 98 Units/L (46-116) 03/31/19 04:04 Creatine Kinase 64 Units/L (39-308) 03/27/19 15:08 CK-MB (CK-2) < 1.0 ng/mL (0-4.0) 03/27/19 15:08 CK/CKMB % Calc 1.6 % (<4) 03/27/19 15:08 Troponin I < 0.02 ng/mL (0-1.5) 03/27/19 15:08 Total Protein 8.0 g/dL (6.4-8.2) 03/31/19 04:04 Albumin 3.1 g/dL (3.4-5.0) L 03/31/19 04:04 Globulin 4.9 g/dL (2.5-4.5) H 03/31/19 04:04 Albumin/Globulin Ratio 0.6 Ratio (1.1-2.1) L 03/31/19 04:04 Specimen Type Clean catch urine 03/27/19 11:25 Urine Color Yellow (YELLOW) 03/27/19 11:25 Urine Appearance Slightly hazy (CLEAR) 03/27/19 11:25 Urine pH 5.0 (5.0 - 8.0) 03/27/19 11:25 Ur Specific [place] 1.015 (1.000-1.030) 03/27/19 11:25 Urine Protein 2+ (NEGATIVE) 03/27/19 11:25 Urine Glucose (UA) 4+ (NEGATIVE) 03/27/19 11:25 Urine Ketones 2+ (NEGATIVE) 03/27/19 11:25 Urine Occult Blood Negative (NEGATIVE) 03/27/19 11:25 Urine Nitrite Negative (NEGATIVE) 03/27/19 11:25 Urine Bilirubin Negative (NEGATIVE) 03/27/19 11:25 Urine Urobilinogen Normal (NORMAL) 03/27/19 11:25 Ur Leukocyte Esterase Negative (NEGATIVE) 03/27/19 11:25 Urine RBC None seen /HPF (NONE SEEN) 03/27/19 11:25 Urine WBC None seen /HPF (NONE SEEN) 03/27/19 11:25 Ur Squamous Epith Cells Negative /HPF (NEGATIVE) 03/27/19 11:25 Urine Bacteria Negative /HPF (NEGATIVE) 03/27/19 11:25 Urine Mucus Few /HPF (NEGATIVE) 03/27/19 11:25 Ur Culture Indicated? No/not indicated 03/27/19 11:25 Digoxin 0.50 ng/mL (0.9-2) L 03/31/19 04:04 - Plan (1) Atrial fibrillation with RVR Status: Acute Plan: CARDIZEM CD 180MG PO HS, COREG 6.25MG PO BID, [employer]ERSON, SUPPLEMENTAL OXYGEN, CONTINUE TO MONITOR (2) Respiratory failure with hypoxia and hypercapnia Status: Acute Qualifiers: Chronicity: acute on chronic Qualified Code(s): J96.21 - Acute and chronic respiratory failure with hypoxia; J96.22 - Acute and chronic respiratory failure with hypercapnia Plan: RESPIRATORY TX , SUPPLEMENTAL OXYGEN, BIPAP, CONTINUE TO MONITOR (3) CHF (congestive heart failure) Status: Acute Qualifiers: Heart failure chronicity: acute on chronic Plan: RESPIRATORY TX, SUPPLEMENTAL OXYGEN, LASIX, BIPAP, CONTINUE TO MONITOR (4) Diabetes Status: Chronic Qualifiers: Diabetes mellitus type: type 2 Diabetes mellitus [employer] insulin use: without [employer] use Diabetes mellitus complication status: without complication Qualified Code(s): E11.9 - Type 2 diabetes mellitus without complications Plan: HUMULIN R SLIDING SCALE, LEVEMIR 12 UNITS SC BID, CONTINUE TO MONITOR
[2019-03-31 10:47] VITALS: BP 134/67
== END 2019-03-31 14:00 | DRG 308 ==
LOC: ER 02:59 → ICU 06:36
PROVIDERS: ADMIT Emergency Medicine; ATTEND Internal Medicine
DX: E03.8 Other specified hypothyroidism; I48.2 Chronic atrial fibrillation; J44.1 Chronic obstructive pulmonary disease with (acute) exacerbation; J96.21 Acute and chronic respiratory failure with hypoxia; I50.9 Heart failure, unspecified; R94.31 Abnormal electrocardiogram [ECG] [EKG]; E11.65 Type 2 diabetes mellitus with hyperglycemia; J96.22 Acute and chronic respiratory failure with hypercapnia; I25.10 Atherosclerotic heart disease of native coronary artery without angina pectoris
CPT/HCPCS: 36415; 36600; 71010; 71045; 80053; 80162; 81001; 82550; 82553; 82803; 82947; 84484; 85025; 87040; 93005; 93306; 94640; 94660; 96365; 96367; 96374; 96375; 97110; 97162; 97166; 99285; A4222; A4618; A7030; J1815; J2930; J3490; J7050

== ENCOUNTER 2019-04-05 17:58 | Inpatient (IN) ==
--- NOTE | 2019-04-05 18:07 | DR.ABDMALE ---
HPI Time seen Time Seen by Provider: 04/05/19 18:06 HPI comment HPI Comment: PATIENT IS 69YR OLD WHITE MALE WITH MULTIPLE MEDICAL PROBLEMS A FIB, ARRHYTHMIA AND COPD WHO CURRENTLY WEARS A LIFE VEST IS IN ED WITH RESPIRATORY DISTRESS, RAPID HEART RATE, OXYGEN DESATURATION AND ABDOMINAL PAIN NOTED TO GET WORSE TONIGHT. NO FEVER. PATIENT IS HAVING CHEST PRESSURE AND TIGHTNESS AND UPPER ANDOMINAL PAIN. PATIENT IS IN A FIB WITH RVR ON THE MONITOR. ABDOMINAL PAIN IS 6/10 AND RADIATES TO LOWER CHEST. CHEST PRESSURE UP TO 8/10 IN LEFT CHEST. O2 SAT ON OXYGEN IN LOW 90S. DENIES FEVER OR DYSURIA. NO VOMITING OR DISRRHEA. DENIES CONSTIPATION. PREVIOUS CHEST PAIN AND HAVE HAD ABDOMINAL PAIN PREVIOUSLY WELL. Complaint Chief Complaint Doctors Comments: ABDOMINAL PAIN SINCE 12:00PM TODAY AND INCREASING SOB ALL NIGHT. Reviewed Nurses Notes Review: Yes Mode of arrival Mode of Arrival: Wheelchair Timing Came on: Suddenly Duration Duration: Constant Duration: Hours Location Location: RUQ, LUQ and Epigastric Severity Severity: Moderate Quality Quality: Sharp Context Onset: Suddenly History of: None Modifying factors Worsening Factors: Movement Improving Factors: Lying Still Associated signs and symptoms Associated Signs and Symptoms: Nausea Other history Other History: HTN, CAD, DM, COPD, CHF, A FIB. PMH PMH Past Surgical History: Yes Surgical History: Unknown Family History Family Medical History: Diabetes Mellitus and Cancer Social History Do you use any recreational Drugs:: No infectious screening Isolation: Standard ROS Review of Systems Constitutional: See HPI, Diaphoresis, Weakness and Fatigue; negative Chills and Fever Eyes: No Symptoms Reported and See HPI; negative Eye Pain, Blurred Vision and Discharge ENTM: See HPI and Nose Congestion; negative Ear Pain, Nose Discharge and Throat Pain Respiratoy: See HPI, Productive Cough, Short of Breath and Wheezing; negative Hemoptysis Cardiovascular: See HPI, Chest Pain and Edema; negative Palpitations Gastrointestinal/Abdominal: See HPI, Abdominal Pain and Nausea; negative Constipation, Diarrhea and Vomiting Genitourinary: See HPI; negative Dysuria and Hematuria Neurological: See HPI, Headache, Weakness and Dizziness Musculoskeletal: See HPI, Back Pain and Muscle Pain Integumentary: See HPI and Change in Color; negative Rash, Bruises and Juandice Hematologic/Lymphatic: See HPI, Easy Bleeding and Easy Bruising; negative Swollen Glands Endocrine: See HPI and Decreased Appetite; negative Flushing, Increased Thirst and Increased Urine Psychiatric: See HPI, Anxiety and Depression; negative Hallucinations All Other Systems: Reviewed and Negative PE Vital Signs Vital Signs: Temp Pulse Pulse Resp BP BP BP 04/10/19 13:00 71 24 120/62 04/10/19 12:00 97.1 F L 64 25 H 105/56 04/10/19 11:00 65 24 97/52 04/10/19 10:00 75 20 118/59 04/10/19 09:19 22 04/10/19 09:00 81 24 118/57 04/10/19 08:59 82 04/10/19 08:21 79 04/10/19 08:19 27 H 04/10/19 08:00 84 26 H 104/53 04/10/19 07:00 97 F L 77 25 H 96/55 04/10/19 06:00 66 20 108/57 04/10/19 05:00 69 21 110/52 04/10/19 04:00 79 23 152/71 04/10/19 03:00 59 L 20 113/59 04/10/19 02:00 98.6 F 73 22 127/58 04/10/19 01:00 74 23 130/60 04/10/19 00:00 78 23 126/60 04/09/19 23:33 24 04/09/19 23:00 98.2 F 76 28 H 128/67 04/09/19 22:33 28 H 04/09/19 22:00 85 30 H 122/66 04/09/19 21:00 80 32 H 114/57 04/09/19 20:22 82 04/09/19 20:00 78 30 H 124/56 04/09/19 19:00 98.3 F 84 28 H 114/59 04/09/19 18:29 127/59 04/09/19 18:27 73 29 H 04/09/19 18:00 80 31 H 04/09/19 17:56 74 28 H 133/68 04/09/19 17:00 73 30 H 04/09/19 16:10 60 04/09/19 16:00 97.8 F 123/58 04/09/19 15:00 66 33 H 110/56 04/09/19 14:24 72 24 104/55 04/09/19 14:00 71 26 H 04/09/19 13:01 77 38 H 137/72 04/09/19 13:00 78 30 H 04/09/19 12:08 83 04/09/19 12:01 75 32 H 140/65 04/09/19 12:00 98.0 F 80 34 H 04/09/19 11:01 85 33 H 110/70 04/09/19 11:00 83 29 H 04/09/19 10:01 89 30 H 123/56 04/09/19 10:00 88 31 H 04/09/19 09:26 90 04/09/19 09:02 95 H 04/09/19 09:00 97.9 F 96 H 41 H 109/67 04/09/19 08:01 86 24 113/59 04/09/19 08:00 87 27 H 04/09/19 07:00 76 25 H 128/63 04/09/19 06:01 74 35 H 118/59 04/09/19 06:00 80 33 H 118/59 04/09/19 05:01 76 25 H 140/84 04/09/19 05:00 77 23 140/84 04/09/19 04:00 71 23 110/52 04/09/19 03:01 79 31 H 102/54 04/09/19 03:00 98.7 F 72 39 H 102/51 04/09/19 02:01 106/53 04/09/19 02:00 78 26 H 106/53 04/09/19 01:00 77 43 H 117/57 04/09/19 00:00 88 25 H 107/59 04/08/19 23:00 98.4 F 76 17 112/58 04/08/19 22:58 24 04/08/19 22:01 117/55 04/08/19 22:00 80 27 H 110/58 04/08/19 21:58 28 H 04/08/19 21:04 120/54 04/08/19 21:00 88 25 H 120/50 04/08/19 20:02 78 04/08/19 20:00 77 31 H 121/64 04/08/19 19:00 98.8 F 82 40 H 120/55 04/08/19 18:00 86 32 H 04/08/19 17:17 83 04/08/19 17:00 88 30 H 04/08/19 16:49 81 46 H 120/55 04/08/19 16:00 97.9 F 80 32 H 04/08/19 15:01 77 24 121/68 04/08/19 15:00 71 28 H 04/08/19 14:01 83 36 H 156/67 04/08/19 14:00 82 31 H 04/08/19 13:01 77 28 H 141/64 04/08/19 13:00 81 26 H 04/08/19 12:29 80 04/08/19 12:00 97.8 F 79 32 H 128/72 04/08/19 11:01 74 33 H 114/58 04/08/19 11:00 73 35 H 04/08/19 10:01 82 26 H 120/58 04/08/19 10:00 75 26 H 04/08/19 09:10 72 04/08/19 09:00 76 32 H 120/58 04/08/19 08:43 75 04/08/19 08:00 97.0 F L 87 30 H 119/59 04/08/19 07:00 80 30 H 110/59 04/08/19 06:01 87 25 H 102/51 04/08/19 06:00 87 32 H 102/51 04/08/19 05:00 85 27 H 104/59 04/08/19 04:01 87 43 H 110/54 04/08/19 04:00 91 H 54 H 122/54 04/08/19 03:01 69 36 H 145/66 04/08/19 03:00 98.1 F 74 32 H 145/66 04/08/19 02:01 76 36 H 126/59 04/08/19 02:00 68 40 H 126/59 04/08/19 01:01 86 31 H 136/61 04/08/19 01:00 82 29 H 136/61 04/08/19 00:01 87 27 H 149/65 04/08/19 00:00 92 H 28 H 149/65 04/07/19 23:26 29 H 04/07/19 23:01 94 H 29 H 145/74 04/07/19 23:00 98.2 F 95 H 31 H 145/74 04/07/19 22:26 34 H 04/07/19 22:00 94 H 57 H 152/68 04/07/19 21:00 93 H 49 H 136/80 04/07/19 20:05 86 04/07/19 20:00 86 37 H 136/80 04/07/19 19:00 98.6 F 91 H 32 H 141/80 04/07/19 18:01 91 H 27 H 125/67 04/07/19 18:00 94 H 45 H 04/07/19 17:03 88 36 H 138/63 04/07/19 17:01 90 34 H 177/95 04/07/19 17:00 87 41 H 04/07/19 16:01 99 H 39 H 151/64 04/07/19 16:00 102 H 39 H 04/07/19 15:14 91 H 45 H 151/65 04/07/19 15:01 87 41 H 178/91 04/07/19 15:00 84 31 H 04/07/19 14:01 92 H 41 H 141/71 04/07/19 14:00 89 33 H 04/07/19 13:01 91 H 31 H 117/56 04/07/19 13:00 93 H 29 H 04/07/19 12:06 94 H 32 H 117/56 04/07/19 12:01 89 34 H 146/113 04/07/19 12:00 93 H 33 H 04/07/19 11:00 86 34 H 143/68 04/07/19 10:00 90 32 H 129/81 04/07/19 09:01 91 H 33 H 133/59 04/07/19 09:00 91 H 30 H 04/07/19 08:50 99 H 04/07/19 08:39 98 H 04/07/19 08:00 98.3 F 95 H 37 H 126/84 04/07/19 07:24 94 H 46 H 119/71 04/07/19 07:00 95 H 38 H 04/07/19 06:00 85 32 H 04/07/19 05:01 87 37 H 117/56 04/07/19 05:00 86 38 H 04/07/19 04:00 97.8 F 80 40 H 108/53 04/07/19 03:20 84 04/07/19 03:01 89 31 H 111/53 04/07/19 03:00 85 33 H 04/07/19 02:01 81 123/57 04/07/19 02:00 78 04/07/19 01:01 85 36 H 135/61 04/07/19 00:01 79 34 H 134/61 04/07/19 00:00 98 F 83 29 H 04/06/19 23:01 118/55 04/06/19 23:00 82 41 H 04/06/19 22:01 70 25 H 120/56 04/06/19 22:00 70 26 H 04/06/19 21:00 72 31 H 114/57 04/06/19 20:00 97.5 F L 78 48 H 102/65 04/06/19 19:01 70 26 H 91/47 04/06/19 18:00 60 23 98/52 04/06/19 17:00 70 24 110/58 04/06/19 16:00 97.8 F 66 26 H 137/58 04/06/19 15:00 67 22 131/58 04/06/19 14:00 70 28 H 133/63 04/06/19 13:00 81 26 H 151/65 04/06/19 12:00 97.3 F L 81 31 H 04/06/19 11:43 28 H 04/06/19 11:00 81 31 H 126/65 04/06/19 10:43 24 04/06/19 10:00 86 31 H 109/59 04/06/19 09:00 81 30 H 109/59 04/06/19 08:39 75 04/06/19 08:24 88 04/06/19 08:00 84 25 H 120/58 04/06/19 07:00 97.1 F L 81 31 H 118/55 04/06/19 06:00 84 25 H 124/56 04/06/19 05:00 86 29 H 119/58 04/06/19 04:00 96.8 F L 87 34 H 137/58 04/06/19 03:00 91 H 29 H 125/60 04/06/19 02:00 99 H 30 H 120/58 04/06/19 01:58 76 32 H 04/06/19 01:18 76 04/06/19 01:00 98.9 F 102 H 30 H 124/60 04/06/19 00:20 110 H 41 H 121/87 04/06/19 00:01 106 H 36 H 121/58 04/05/19 23:21 122 H 30 H 137/59 04/05/19 22:40 122 H 36 H 147/63 04/05/19 22:21 44 H 04/05/19 22:05 115 H 37 H 139/60 04/05/19 21:05 122 H 29 H 157/68 04/05/19 20:05 128 H 44 H 132/60 04/05/19 19:05 44 H 136/69 04/05/19 18:40 129 H 35 H 137/68 04/05/19 18:20 131 H 32 H 140/78 04/05/19 18:06 97.2 F L 133 H 30 H 126/95 03/31/19 09:38 134/67 03/27/19 22:00 139/63 02/01/19 08:00 131/61 Pulse Ox 04/10/19 13:00 96 04/10/19 12:00 96 04/10/19 11:00 97 04/10/19 10:00 97 04/10/19 09:19 04/10/19 09:00 95 04/10/19 08:59 96 04/10/19 08:21 04/10/19 08:19 04/10/19 08:00 95 04/10/19 07:00 97 04/10/19 06:00 95 04/10/19 05:00 95 04/10/19 04:00 96 04/10/19 03:00 95 04/10/19 02:00 96 04/10/19 01:00 96 04/10/19 00:00 96 04/09/19 23:33 04/09/19 23:00 95 04/09/19 22:33 04/09/19 22:00 95 04/09/19 21:00 95 04/09/19 20:22 96 04/09/19 20:00 95 04/09/19 19:00 96 04/09/19 18:29 04/09/19 18:27 97 04/09/19 18:00 04/09/19 17:56 95 04/09/19 17:00 04/09/19 16:10 95 04/09/19 16:00 04/09/19 15:00 93 L 04/09/19 14:24 95 04/09/19 14:00 96 04/09/19 13:01 95 04/09/19 13:00 95 04/09/19 12:08 97 04/09/19 12:01 95 04/09/19 12:00 96 04/09/19 11:01 96 04/09/19 11:00 95 04/09/19 10:01 94 L 04/09/19 10:00 92 L 04/09/19 09:26 04/09/19 09:02 95 04/09/19 09:00 95 04/09/19 08:01 95 04/09/19 08:00 95 04/09/19 07:00 95 04/09/19 06:01 97 04/09/19 06:00 95 04/09/19 05:01 94 L 04/09/19 05:00 94 L 04/09/19 04:00 95 04/09/19 03:01 95 04/09/19 03:00 98 04/09/19 02:01 04/09/19 02:00 98 04/09/19 01:00 98 04/09/19 00:00 97 04/08/19 23:00 94 L 04/08/19 22:58 04/08/19 22:01 04/08/19 22:00 95 04/08/19 21:58 04/08/19 21:04 04/08/19 21:00 94 L 04/08/19 20:02 95 04/08/19 20:00 96 04/08/19 19:00 94 L 04/08/19 18:00 95 04/08/19 17:17 100 04/08/19 17:00 98 04/08/19 16:49 04/08/19 16:00 95 04/08/19 15:01 96 04/08/19 15:00 95 04/08/19 14:01 95 04/08/19 14:00 96 04/08/19 13:01 96 04/08/19 13:00 95 04/08/19 12:29 100 04/08/19 12:00 97 04/08/19 11:01 94 L 04/08/19 11:00 93 L 04/08/19 10:01 95 04/08/19 10:00 95 04/08/19 09:10 99 04/08/19 09:00 97 04/08/19 08:43 04/08/19 08:00 04/08/19 07:00 94 L 04/08/19 06:01 95 04/08/19 06:00 94 L 04/08/19 05:00 94 L 04/08/19 04:01 95 04/08/19 04:00 95 04/08/19 03:01 93 L 04/08/19 03:00 93 L 04/08/19 02:01 95 04/08/19 02:00 95 04/08/19 01:01 95 04/08/19 01:00 95 04/08/19 00:01 97 04/08/19 00:00 96 04/07/19 23:26 04/07/19 23:01 96 04/07/19 23:00 97 04/07/19 22:26 04/07/19 22:00 95 04/07/19 21:00 96 04/07/19 20:05 96 04/07/19 20:00 95 04/07/19 19:00 95 04/07/19 18:01 95 04/07/19 18:00 95 04/07/19 17:03 95 04/07/19 17:01 95 04/07/19 17:00 94 L 04/07/19 16:01 96 04/07/19 16:00 94 L 04/07/19 15:14 96 04/07/19 15:01 95 04/07/19 15:00 96 04/07/19 14:01 94 L 04/07/19 14:00 94 L 04/07/19 13:01 95 04/07/19 13:00 95 04/07/19 12:06 96 04/07/19 12:01 93 L 04/07/19 12:00 96 04/07/19 11:00 97 04/07/19 10:00 96 04/07/19 09:01 96 04/07/19 09:00 96 04/07/19 08:50 04/07/19 08:39 94 L 04/07/19 08:00 04/07/19 07:24 97 04/07/19 07:00 96 04/07/19 06:00 96 04/07/19 05:01 95 04/07/19 05:00 95 04/07/19 04:00 94 L 04/07/19 03:20 94 L 04/07/19 03:01 95 04/07/19 03:00 95 04/07/19 02:01 93 L 04/07/19 02:00 93 L 04/07/19 01:01 94 L 04/07/19 00:01 94 L 04/07/19 00:00 95 04/06/19 23:01 04/06/19 23:00 92 L 04/06/19 22:01 94 L 04/06/19 22:00 94 L 04/06/19 21:00 95 04/06/19 20:00 95 04/06/19 19:01 97 04/06/19 18:00 96 04/06/19 17:00 95 04/06/19 16:00 92 L 04/06/19 15:00 94 L 04/06/19 14:00 95 04/06/19 13:00 94 L 04/06/19 12:00 92 L 04/06/19 11:43 04/06/19 11:00 92 L 04/06/19 10:43 04/06/19 10:00 90 L 04/06/19 09:00 92 L 04/06/19 08:39 04/06/19 08:24 96 04/06/19 08:00 92 L 04/06/19 07:00 04/06/19 06:00 92 L 04/06/19 05:00 91 L 04/06/19 04:00 92 L 04/06/19 03:00 93 L 04/06/19 02:00 92 L 04/06/19 01:58 95 04/06/19 01:18 95 04/06/19 01:00 94 L 04/06/19 00:20 04/06/19 00:01 04/05/19 23:21 04/05/19 22:40 04/05/19 22:21 04/05/19 22:05 92 L 04/05/19 21:05 92 L 04/05/19 20:05 91 L 04/05/19 19:05 91 L 04/05/19 18:40 92 L 04/05/19 18:20 93 L 04/05/19 18:06 92 L 03/31/19 09:38 03/27/19 22:00 02/01/19 08:00 General Limitations: No Limitations General Appearance: Alert and In Distress Head Head Exam: Normal Inspection, Atraumatic and Normocephalic Eyes Eye exam: Normal Appearance, PERRL and EOMI; negative Scleral Icterus and Conjunctival Injection Neck Neck Exam: Normal Inspection and Trachea Midline; negative Tenderness and Lymphadenopathy Chest Chest Inspection: Normal Inspection and Symmetric Chest Wall Rise; negative Tenderness Respiratory Respiratory Exam: Normal Lung Sounds Bilat, Accessory Muscle Use and Respiratory Distress; negative Chest Wall Tenderness Respiratory Exam: Bilateral: Rhonchi, Upper: Wheezing and Upper: Rhonchi and Lower: Wheezing and Lower: Rhonchi Cardiovascular Cardiovascular Exam: Regular Rate, Normal Rhythm and Normal Heart Sounds; negative Systolic Murmur and Diastolic Murmur Abdominal Exam Abdominal Exam: Normal Inspection, Normal Bowel Sounds, Soft and Tenderness; negative Organomegaly and Mass Abdominal Tenderness: RLQ, LLQ, Epigastrium and Moderate Rectal Rectal Exam: Deferred Back Back Exam: Tenderness, Paraspinal Tenderness and Vertebral Tenderness; negative (R) CVA Tenderness and (L) CVA Tenderness Extremeties Extremities Exam: Normal Capillary Refill, Edema and Joint Swelling; negative Tenderness and Calf Tenderness Exam: Male: Deferred Neurologic Neurological Exam: Alert, Oriented X3 and CN II-XII Intact; negative Motor Sensory Deficit Psychiatric Psychiatric Exam: Normal Affect, Depressed, Agitated and Anxious; negative Normal Mood Skin Skin Exam: Warm, Dry, Cyanosis (PERIPHERAL), Diaphoresis and Erythema; negative Normal Color and Rash MDM Differential Diagnosis Differential Diagnosis: Bowel Obstruction, Constipation, Diverticular disease, Urinary tract infection and Urolithiasis Other differential diagnosis: RESPIRATORY DISTRESS, CHF, AR, COPD EXACERBATION. COURSE Treatment Treatment: SEE ORDERS. Consultation Consultation Comments: DISCUSS PATIENT WITH DR. SALES AND HE WILL ADMIT PATIENT. Education/Counseling Education/Counseling: Patient Educated On: Diagnosis ROR Labs Reviewed Laboratory Results Reviewed?: Yes Result Diagrams: 04/10/19 04:16 04/10/19 04:16 Laboratory: 04/05/19 21:59 Blood Blood Culture - Final 04/05/19 21:52 Blood Blood Culture - Final 04/06/19 08:53 Sputum - Expectorated Sputum Sputum Culture - Final 04/06/19 08:53 Sputum - Expectorated Sputum - Final WBC 7.0 X10^3/uL (3.6-10.0) 04/10/19 04:16 RBC 4.61 X10^6/uL (4.7-6.0) L 04/10/19 04:16 Hgb 12.8 g/dL (13.5-18.0) L 04/10/19 04:16 Hct 37.4 % (42.0-54.0) L 04/10/19 04:16 MCV 81.0 fL (80.0-100.0) 04/10/19 04:16 MCH 27.7 pg (27.0-34.0) 04/10/19 04:16 MCHC 34.1 g/dL (33.0-35.0) 04/10/19 04:16 RDW 14.3 % (11.6-16.5) 04/10/19 04:16 Plt Count 180 X10^3/uL (150.0-450.0) 04/10/19 04:16 MPV 9.1 fL (7.4-11.0) 04/10/19 04:16 Neut % (Auto) 54.6 % (42.0-75.0) 04/10/19 04:16 Lymph % (Auto) 25.1 % (21.0-51.0) 04/10/19 04:16 [place] % (Auto) 15.5 % (0.0-13.0) H 04/10/19 04:16 Eos % (Auto) 3.9 % (0.9-2.9) H 04/10/19 04:16 Baso % (Auto) 0.9 % (0.2-1.0) 04/10/19 04:16 Neut # (Auto) 3.8 x10^3/uL (2.2-4.8) 04/10/19 04:16 Lymph # (Auto) 1.7 X10^3/uL (1.3-2.9) 04/10/19 04:16 [place] # (Auto) 1.1 x10^3/uL (0.3-0.8) H 04/10/19 04:16 Eos # (Auto) 0.3 x10^3/uL (0.0-0.2) H 04/10/19 04:16 Baso # (Auto) 0.1 X10^3/uL (0.0-0.1) 04/10/19 04:16 Absolute Nucleated RBC 0.2 /100WBC 04/10/19 04:16 Sample Site Left radial 04/05/19 18:12 ABG pH 7.400 (7.35-7.45) 04/05/19 18:12 ABG pCO2 51.0 mmHg (35.0-45.0) H* 04/05/19 18:12 ABG pO2 63.0 mmHg (80.0-100.0) L 04/05/19 18:12 ABG HCO3 31.6 mmol/L (22-26) H* 04/05/19 18:12 ABG O2 Saturation 92.0 % (90-100) 04/05/19 18:12 ABG Base Excess 5.6 mmol/L (-2.0-2.0) H 04/05/19 18:12 Enrique Test Pos 04/05/19 18:12 A-a Gradient 101.0 mmHg 04/05/19 18:12 FiO2 32.0 04/05/19 18:12 Blood Gas Comments [place] well aw 04/05/19 18:12 Sodium 135 mmol/L (136-145) L 04/10/19 04:16 Corrected Sodium 137 mmol/L (136-145) 04/10/19 04:16 Potassium 4.1 mmol/L (3.5-5.1) 04/10/19 04:16 Chloride 95 mmol/L (98-107) L 04/10/19 04:16 Carbon Dioxide 34.5 mmol/L (21-32) H 04/10/19 04:16 BUN 12 mg/dL (7-18) 04/10/19 04:16 Creatinine 0.74 mg/dL (0.70-1.30) 04/10/19 04:16 Est GFR (MDRD) Af Amer > 60 (>60) 04/10/19 04:16 Est GFR (MDRD) Non-Af > 60 (>60) 04/10/19 04:16 Glucose 181 mg/dL (65-99) H 04/10/19 04:16 Lactic Acid 0.9 mmol/L (0.4-2.0) 04/05/19 21:59 Calcium 10.3 mg/dL (8.5-10.1) H 04/10/19 04:16 Corrected Calcium 11.3 mg/dL (8.5-10.1) H 04/10/19 04:16 Magnesium 1.5 mg/dL (1.7-2.9) L 04/06/19 06:00 Total Bilirubin 0.40 mg/dL (0.2-1.0) 04/10/19 04:16 AST 27 Units/L (15-37) 04/10/19 04:16 ALT 29 Units/L (12-78) 04/10/19 04:16 Alkaline Phosphatase 109 Units/L (46-116) 04/10/19 04:16 Creatine Kinase 25 Units/L (39-308) L 04/06/19 00:10 CK-MB (CK-2) < 1.0 ng/mL (0-4.0) 04/06/19 00:10 CK/CKMB % Calc 4.0 % (<4) 04/06/19 00:10 Troponin I < 0.02 ng/mL (0-1.5) 04/06/19 00:10 Total Protein 8.9 g/dL (6.4-8.2) H 04/10/19 04:16 Total Protein (PEP) 7.50 g/dL (6.00-8.30) 04/07/19 06:00 Albumin 2.7 g/dL (3.4-5.0) L 04/10/19 04:16 Albumin (PEP) 2.93 g/dL (3.75-5.01) L 04/07/19 06:00 Globulin 6.2 g/dL (2.5-4.5) H 04/10/19 04:16 Albumin/Globulin Ratio 0.4 Ratio (1.1-2.1) L 04/10/19 04:16 Idexi-5-Cdgvvrjwn 0.50 g/dL (0.19-0.46) H 04/07/19 06:00 Dspry-4-Zggagirwp 1.01 g/dL (0.48-1.05) 04/07/19 06:00 Beta Globulins 0.95 g/dL (0.48-1.10) 04/07/19 06:00 Gamma Globulins 2.11 g/dL (0.62-1.51) H 04/07/19 06:00 PEP Interpretation See note 04/07/19 06:00 Specimen Type Catherized urine 04/06/19 02:00 Urine Color Yellow (YELLOW) 04/06/19 02:00 Urine Appearance Clear (CLEAR) 04/06/19 02:00 Urine pH 5.0 (5.0 - 8.0) 04/06/19 02:[address] [place] 1.020 (1.000-1.030) 04/06/19 02:00 Urine Protein 2+ (NEGATIVE) 04/06/19 02:00 Urine Glucose (UA) Negative (NEGATIVE) 04/06/19 02:00 Urine Ketones 2+ (NEGATIVE) 04/06/19 02:00 Urine Occult Blood Negative (NEGATIVE) 04/06/19 02:00 Urine Nitrite Negative (NEGATIVE) 04/06/19 02:00 Urine Bilirubin Negative (NEGATIVE) 04/06/19 02:00 Urine Urobilinogen Normal (NORMAL) 04/06/19 02:00 Ur Leukocyte Esterase Negative (NEGATIVE) 04/06/19 02:00 Urine RBC None seen /HPF (NONE SEEN) 04/06/19 02:00 Urine WBC None seen /HPF (NONE SEEN) 04/06/19 02:00 Ur Squamous Epith Cells Rare /HPF (NEGATIVE) 04/06/19 02:00 Ur Renal Epithelial Cell Few /HPF (NEGATIVE) 04/05/19 21:01 Amorphous Sediment Trace /HPF (NEGATIVE) 04/05/19 21:01 Urine Bacteria Negative /HPF (NEGATIVE) 04/06/19 02:00 Hyaline Casts Few /LPF (NEGATIVE) 04/05/19 21:01 Ur Culture Indicated? No/not indicated 04/06/19 02:00 Urine Total Volume Random mL 04/07/19 15:22 Urine Total Protein See note mg/dL (10-140) 04/07/19 15:22 Urine Albumin (PEP) Detected (Detected) 04/07/19 15:22 U Ntkfc-5-Lsmfptbh Detected (None Detected) 04/07/19 15:22 U Dvqbj-8-Lypsijhw Detected (None Detected) 04/07/19 15:22 U Beta Globulin Detected (None Detected) 04/07/19 15:22 U Gamma Globulin Detected (None Detected) 04/07/19 15:22 U Free [place] Light Ch 7.49 mg/dL (0.14-2.42) H 04/07/19 15:22 U Free [place] Excretion See note mg/d 04/07/19 15:22 U Free [place] Light Ch 0.48 mg/dL (0.02-0.67) 04/07/19 15:22 Free Lambda Excret 24 See note mg/d 04/07/19 15:22 U Free [place]/Lambda 24 15.60 RATIO (2.04-10.37) H 04/07/19 15:22 Digoxin 0.53 ng/mL (0.9-2) L 04/06/19 06:00 BETTY & SPEP Interp See note 04/07/19 15:22 XRAY XRAY Interpreted by: Radiologist XRAY Findings: REPORT NOTED AND DISCUSS WITH PATIENT. Opioid Opioid Risk Tool Age (Rafael box if 16-45): No Total: 0 Total Score Risk Category: Low Risk Copyright: [facility] predicting aberrant behaviors Diagnosis Discharge Problem: Respiratory disease Pneumonia Qualifiers: Pneumonia type: due to unspecified organism Laterality: left Lung location: lower lobe of lung Qualified Code(s): J18.1 - Lobar pneumonia, unspecified organism Afib Qualifiers: Atrial fibrillation type: chronic Qualified Code(s): I48.2 - Chronic atrial fibrillation Chest pain Qualifiers: Chest pain type: intercostal pain Qualified Code(s): R07.82 - Intercostal pain Instructions Forms: Excuse From Work or School
[2019-04-05 18:12] VITALS: BMI 47.7
[2019-04-05 18:23] LABS: ABG BASE EXCESS 5.6 mmol/L (-2.0-2.0)
[2019-04-05 18:24] LABS: ABG ALLEN TEST POS; ABG HCO3 31.6 mmol/L (22-26)
[2019-04-05] MEDS ORDERED: CARDIZEM INJ 50 MG VIAL IVP ONE ×3 (18:32→21:40)
[2019-04-05] MEDS ORDERED: CARDIZEM INJ 50 MG VIAL ONE (18:36)
[2019-04-05] MEDS ORDERED: ATIVAN INJ 2 MG VIAL IVP ONE (18:48)
[2019-04-05] MEDS ORDERED: ATIVAN INJ 2 MG VIAL ONE (18:50)
[2019-04-05 19:55] LABS: BASOPHILS % (AUTO) 0.3 % (0.2-1.0); EOSINOPHILS % (AUTO) 0.2 % (0.9-2.9); HEMATOCRIT 38.6 % (42.0-54.0); HEMOGLOBIN 13.1 g/dL (13.5-18.0); LYMPHOCYTES # (AUTO) 0.8 X10^3/uL (1.3-2.9); LYMPHOCYTES % (AUTO) 5.3 % (21.0-51.0); MEAN CORPUSCULAR HEMOGLOBIN 27.4 pg (27.0-34.0); MEAN CORPUSCULAR VOLUME 80.8 fL (80.0-100.0); MEAN PLATELET VOLUME 9.4 fL (7.4-11.0); MONOCYTES # (AUTO) 1.8 x10^3/uL (0.3-0.8); MONOCYTES % (AUTO) 12.4 % (0.0-13.0); NEUTROPHILS % (AUTO) 81.8 % (42.0-75.0); PLATELET COUNT 164 X10^3/uL (150.0-450.0); RED BLOOD COUNT 4.79 X10^6/uL (4.7-6.0); RED CELL DISTRIBUTION WIDTH 14.7 % (11.6-16.5); WHITE BLOOD COUNT 14.7 X10^3/uL (3.6-10.0)
--- NOTE | 2019-04-05 19:56 | RAD ---
History: Dyspnea and chest pain. Exam: Single portable view of the chest. Comparison: April 03, 2019. Findings: The trachea is midline. The cardiomediastinal silhouette remains enlarged. Diffuse interstitial thickening throughout the lung grande and reticulonodular densities in the upper and mid lung zones remain which can be seen with chronic bronchitis. However, there is slight worsening of the previously seen ground-glass changes in the lung bases which is concerning for pneumonia. Follow-up CT imaging with IV contrast is recommended for improved inspection. No other cardiopulmonary changes are seen. The bones are intact. Impression: The cardiomediastinal silhouette remains enlarged. Diffuse interstitial thickening throughout the lung grande and reticulonodular densities in the upper and mid lung zones remain which can be seen with chronic bronchitis. However, there is slight worsening of the previously seen ground-glass changes in the lung bases which is concerning for pneumonia. Follow-up CT imaging with IV contrast is recommended for improved inspection. No other acute cardiopulmonary changes are appreciated. Reported By:
[2019-04-05 20:10] LABS: BLOOD UREA NITROGEN 20 mg/dL (7-18); CALCIUM 9.9 mg/dL (8.5-10.1); CARBON DIOXIDE 28.6 mmol/L (21-32); CHLORIDE 94 mmol/L (98-107); COR NA(FOR HYPERGLY) 133 mmol/L (136-145); CREATININE 1.01 mg/dL (0.70-1.30); SODIUM 131 mmol/L (136-145); TROPONIN I < 0.02 ng/mL (0-1.5); eGFR NON BLACK RACES > 60 (>60)
[2019-04-05 20:14] LABS: ALANINE AMINOTRANSFERASE 15 Units/L (12-78); ALKALINE PHOSPHATASE 110 Units/L (46-116); ASPARTATE AMINO TRANSFERASE 15 Units/L (15-37); CKMB % 6.7 % (<4); COR CA(FOR HYPOALB) 10.7 mg/dL (8.5-10.1); CREATINE KINASE 15 Units/L (39-308); CREATINE KINASE MB < 1.0 ng/mL (0-4.0); TOTAL PROTEIN 9.3 g/dL (6.4-8.2)
[2019-04-05 21:07] LABS: BILIRUBIN,URINE NEGATIVE (NEGATIVE); BLOOD/HEMOGLOBIN,URINE NEGATIVE (NEGATIVE); GLUCOSE, URINE NEGATIVE (NEGATIVE); KETONES,URINE NEGATIVE (NEGATIVE); LEUKOCYTE ESTERASE ,URINE NEGATIVE (NEGATIVE); NITRITES,URINE NEGATIVE (NEGATIVE); PROTEIN,URINE 3+ (NEGATIVE); UROBILINOGEN,URINE 1+ (NORMAL)
[2019-04-05 21:14] LABS: AMORPHOUS SEDIMENT,UR TRACE /HPF (NEGATIVE); APPEARANCE,URINE SLIGHTLY HAZY (CLEAR); BACTERIA,URINE TRACE /HPF (NEGATIVE); COLOR,URINE DARK YELLOW (YELLOW); RBC,URINE 0-2 /HPF (NONE SEEN); RENAL EPITHELIAL CELLS,URINE FEW /HPF (NEGATIVE); SQUAMOUS EPITHELIAL CELL,UR FEW /HPF (NEGATIVE)
[2019-04-05 21:15] LABS: HYALINE CASTS, URINE FEW /LPF (NEGATIVE)
[2019-04-05] MEDS ORDERED: FORTAZ or TAZICEF VIAL INJ IVP ONE (21:44)
[2019-04-05] MEDS ORDERED: NS 100 ML IV + SPIKE MINIBAG* 100 ML ONE (21:48)
[2019-04-05] MEDS ORDERED: CARDIZEM INJ 125 MG VIAL ONE (21:50)
[2019-04-05] MEDS ORDERED: NS 1000 ML 1,000 ML ONE (21:53)
[2019-04-05] MEDS ORDERED: FORTAZ or TAZICEF VIAL INJ ONE (21:54)
[2019-04-05] MEDS: NS 1000 ML 1,000 ML IV SCH (22:09)
[2019-04-05] MEDS: CARDIZEM INJ 125 MG VIAL 125 MG in NS 100 ML IV 100 ML IV PRN (22:10)
[2019-04-05] MEDS ORDERED: ROXICODONE TAB 15 MG PO ONE (22:12)
[2019-04-06 00:53] LABS: CREATINE KINASE 25 Units/L (39-308); CREATINE KINASE MB < 1.0 ng/mL (0-4.0); TROPONIN I < 0.02 ng/mL (0-1.5)
[2019-04-06] MEDS ORDERED: LIPITOR TAB 40 MG PO SCH (00:58)
[2019-04-06] MEDS ORDERED: OXYCODONE 15 MG PO SCH (00:58)
[2019-04-06] MEDS ORDERED: ASPIRIN EC 81 MG PO SCH (00:58)
[2019-04-06] MEDS ORDERED: LANOXIN PO SCH (00:58)
[2019-04-06] MEDS ORDERED: SYNTHROID 150 mcg TAB PO SCH (00:58)
[2019-04-06] MEDS ORDERED: HumuLIN R SUBCUT SCH (00:58)
[2019-04-06] MEDS ORDERED: PATIENT'S HOME MEDICATION (Diltiazem Hcl [Diltiazem Hcl] 180 MG) PO SCH (00:58)
[2019-04-06] MEDS ORDERED: JANUVIA PO SCH (00:58)
[2019-04-06] MEDS ORDERED: FORTAZ or TAZICEF VIAL INJ ONE (01:12)
[2019-04-06] MEDS: XOPENEX 1.25 MG/3 ML NEBULE NEB SCH ×6 (01:18→19:59)
[2019-04-06] MEDS ORDERED: ROXICODONE TAB 15 MG ONE (01:20)
[2019-04-06] MEDS ORDERED: SALINE 3% 15 ML NEB TX NEB ONE (01:21)
[2019-04-06] MEDS ORDERED: NYSTATIN POWDER ONE (01:48)
[2019-04-06] MEDS ORDERED: NS 250 ML IV 250 ML ONE (02:28)
[2019-04-06] MEDS: VIBRAMYCIN 100 MG in D5W 250 ML IV 250 ML IV SCH ×3 (02:30→21:21)
[2019-04-06] MEDS: NYSTATIN POWDER TOP SCH ×3 (02:35→21:20)
[2019-04-06 02:42] LABS: BILIRUBIN,URINE NEGATIVE (NEGATIVE); BLOOD/HEMOGLOBIN,URINE NEGATIVE (NEGATIVE); GLUCOSE, URINE NEGATIVE (NEGATIVE); KETONES,URINE 2+ (NEGATIVE); LEUKOCYTE ESTERASE ,URINE NEGATIVE (NEGATIVE); NITRITES,URINE NEGATIVE (NEGATIVE); PROTEIN,URINE 2+ (NEGATIVE); UROBILINOGEN,URINE NORMAL (NORMAL)
[2019-04-06 02:45] LABS: APPEARANCE,URINE CLEAR (CLEAR); BACTERIA,URINE NEGATIVE /HPF (NEGATIVE); COLOR,URINE YELLOW (YELLOW); RBC,URINE NONE SEEN /HPF (NONE SEEN); SQUAMOUS EPITHELIAL CELL,UR RARE /HPF (NEGATIVE)
[2019-04-06] MEDS: HumuLIN R SUBCUT SCH ×4 (05:52→21:19)
[2019-04-06] MEDS: FORTAZ or TAZICEF VIAL INJ IVP SCH ×3 (05:52→21:21)
[2019-04-06] MEDS: CARDIZEM INJ 125 MG VIAL 125 MG in NS 100 ML IV 100 ML IV PRN (05:53)
[2019-04-06 06:38] LABS: BASOPHILS # (AUTO) 0.1 X10^3/uL (0.0-0.1); BASOPHILS % (AUTO) 0.6 % (0.2-1.0); EOSINOPHILS % (AUTO) 0.1 % (0.9-2.9); HEMATOCRIT 36.5 % (42.0-54.0); HEMOGLOBIN 12.4 g/dL (13.5-18.0); LYMPHOCYTES % (AUTO) 8.8 % (21.0-51.0); MEAN CORPUSCULAR HEMOGLOBIN 27.5 pg (27.0-34.0); MEAN CORPUSCULAR VOLUME 80.8 fL (80.0-100.0); MEAN PLATELET VOLUME 9.5 fL (7.4-11.0); MONOCYTES # (AUTO) 1.7 x10^3/uL (0.3-0.8); MONOCYTES % (AUTO) 15.1 % (0.0-13.0); NEUTROPHILS # (AUTO) 8.4 x10^3/uL (2.2-4.8); NEUTROPHILS % (AUTO) 75.4 % (42.0-75.0); PLATELET COUNT 138 X10^3/uL (150.0-450.0); RED BLOOD COUNT 4.51 X10^6/uL (4.7-6.0); RED CELL DISTRIBUTION WIDTH 14.5 % (11.6-16.5); WHITE BLOOD COUNT 11.2 X10^3/uL (3.6-10.0)
[2019-04-06 06:42] LABS: ALANINE AMINOTRANSFERASE 14 Units/L (12-78); ALBUMIN 2.6 g/dL (3.4-5.0); ALKALINE PHOSPHATASE 106 Units/L (46-116); ASPARTATE AMINO TRANSFERASE 17 Units/L (15-37); BLOOD UREA NITROGEN 16 mg/dL (7-18); CALCIUM 9.8 mg/dL (8.5-10.1); CARBON DIOXIDE 28.7 mmol/L (21-32); CHLORIDE 97 mmol/L (98-107); COR CA(FOR HYPOALB) 10.9 mg/dL (8.5-10.1); COR NA(FOR HYPERGLY) 137 mmol/L (136-145); CREATININE 0.76 mg/dL (0.70-1.30); MAGNESIUM 1.5 mg/dL (1.7-2.9); SODIUM 133 mmol/L (136-145); TOTAL PROTEIN 8.7 g/dL (6.4-8.2); eGFR NON BLACK RACES > 60 (>60)
[2019-04-06] MEDS ORDERED: PHARMACY CONSULT - DOSE _____ XX SCH (08:00)
[2019-04-06] MEDS: LASIX PO SCH ×2 (08:35→21:20)
[2019-04-06] MEDS: HEMOCYTE-PLUS PO SCH (08:37)
[2019-04-06] MEDS: XANAX PO SCH ×2 (08:38→21:21)
[2019-04-06] MEDS: PEPCID TAB 20 MG PO SCH ×2 (08:39→21:20)
[2019-04-06] MEDS: CARDIZEM CD 180 MG PO SCH (08:39)
[2019-04-06] MEDS: COREG TAB 6.25 MG PO SCH ×2 (08:39→21:19)
[2019-04-06] MEDS: ZESTRIL TAB 10 MG PO SCH ×2 (08:39→21:21)
[2019-04-06] MEDS: LANOXIN PO SCH (08:39)
[2019-04-06] MEDS: K-DUR TAB 20 MEQ PO SCH ×2 (08:39→21:20)
[2019-04-06] MEDS: ASPIRIN EC 81 MG PO SCH (08:39)
[2019-04-06] MEDS: LEVEMIR SC SCH ×2 (08:40→21:18)
[2019-04-06] MEDS: JANUVIA PO SCH (08:40)
[2019-04-06] MEDS: LOVENOX INJ 40 MG SYR SC SCH (10:03)
[2019-04-06] MEDS: ROXICODONE TAB 15 MG PO SCH ×2 (10:43→21:21)
[2019-04-06] MEDS: NS 1000 ML 1,000 ML IV SCH ×2 (11:16→21:29)
[2019-04-06] MEDS: CYMBALTA PO SCH (12:13)
[2019-04-06] MEDS ORDERED: SYNTHROID 150 mcg TAB ONE (13:32)
[2019-04-06] MEDS: SYNTHROID 150 mcg TAB PO SCH (16:00)
[2019-04-06] MEDS: SNACK - Diabetic Appropriate PO SCH (21:19)
[2019-04-06] MEDS: LIPITOR TAB 40 MG PO SCH (21:20)
[2019-04-06] MEDS ORDERED: ROBITUSSIN DM ONE (23:15)
[2019-04-06] MEDS: ROBITUSSIN DM PO PRN (23:19)
[2019-04-06] MEDS: XANAX PO PRN (23:19)
[2019-04-07] MEDS: XOPENEX 1.25 MG/3 ML NEBULE NEB SCH ×5 (03:20→20:02)
[2019-04-07] MEDS: HumuLIN R SUBCUT SCH ×4 (05:48→22:00)
[2019-04-07] MEDS: FORTAZ or TAZICEF VIAL INJ IVP SCH ×3 (05:48→22:13)
[2019-04-07 06:55] LABS: BASOPHILS % (AUTO) 0.4 % (0.2-1.0); EOSINOPHILS # (AUTO) 0.2 x10^3/uL (0.0-0.2); EOSINOPHILS % (AUTO) 1.9 % (0.9-2.9); HEMATOCRIT 34.9 % (42.0-54.0); HEMOGLOBIN 11.9 g/dL (13.5-18.0); LYMPHOCYTES # (AUTO) 1.1 X10^3/uL (1.3-2.9); LYMPHOCYTES % (AUTO) 11.2 % (21.0-51.0); MEAN CORPUSCULAR HEMOGLOBIN 27.9 pg (27.0-34.0); MEAN CORPUSCULAR HGB CONC 34.1 g/dL (33.0-35.0); MEAN CORPUSCULAR VOLUME 81.8 fL (80.0-100.0); MEAN PLATELET VOLUME 9.2 fL (7.4-11.0); MONOCYTES # (AUTO) 1.4 x10^3/uL (0.3-0.8); NEUTROPHILS # (AUTO) 7.1 x10^3/uL (2.2-4.8); NEUTROPHILS % (AUTO) 72.5 % (42.0-75.0); PLATELET COUNT 168 X10^3/uL (150.0-450.0); RED BLOOD COUNT 4.27 X10^6/uL (4.7-6.0); RED CELL DISTRIBUTION WIDTH 14.3 % (11.6-16.5); WHITE BLOOD COUNT 9.8 X10^3/uL (3.6-10.0)
--- NOTE | 2019-04-07 07:01 | RAD ---
HISTORY: Shortness of breath Study: Chest AP portable Comparison: 04/05/2019 Findings: Patient is rotated to the left. The heart remains enlarged. The right lung and left upper lung grande appear free of acute infiltrates. The left lower lobe is obscured by the enlarged heart due to rotation. No pleural effusions are identified. The bony thorax is unremarkable. IMPRESSION: Continued cardiomegaly without definite congestive heart failure No definite infiltrates identified Limited evaluation of the left lower lobe due to the cardiomegaly and rotation. Reported By:
[2019-04-07 07:02] LABS: ALANINE AMINOTRANSFERASE 20 Units/L (12-78); ALBUMIN 2.6 g/dL (3.4-5.0); ALKALINE PHOSPHATASE 112 Units/L (46-116); ASPARTATE AMINO TRANSFERASE 27 Units/L (15-37); BLOOD UREA NITROGEN 21 mg/dL (7-18); CARBON DIOXIDE 28.7 mmol/L (21-32); CHLORIDE 99 mmol/L (98-107); COR CA(FOR HYPOALB) 11.1 mg/dL (8.5-10.1); COR NA(FOR HYPERGLY) 136 mmol/L (136-145); CREATININE 0.73 mg/dL (0.70-1.30); SODIUM 134 mmol/L (136-145); TOTAL PROTEIN 8.4 g/dL (6.4-8.2); eGFR NON BLACK RACES > 60 (>60)
[2019-04-07] MEDS: LOVENOX INJ 40 MG SYR SC SCH (08:45)
[2019-04-07] MEDS: LEVEMIR SC SCH ×2 (08:46→22:00)
[2019-04-07] MEDS: K-DUR TAB 20 MEQ PO SCH ×2 (08:48→22:00)
[2019-04-07] MEDS: ZESTRIL TAB 10 MG PO SCH ×2 (08:48→22:00)
[2019-04-07] MEDS: PEPCID TAB 20 MG PO SCH ×2 (08:48→22:00)
[2019-04-07] MEDS: JANUVIA PO SCH (08:48)
[2019-04-07] MEDS: HEMOCYTE-PLUS PO SCH (08:48)
[2019-04-07] MEDS: ASPIRIN EC 81 MG PO SCH (08:49)
[2019-04-07] MEDS: LANOXIN PO SCH (08:50)
[2019-04-07] MEDS: LASIX PO SCH ×2 (08:50→22:00)
[2019-04-07] MEDS: COREG TAB 6.25 MG PO SCH ×2 (08:50→22:00)
[2019-04-07] MEDS: CARDIZEM CD 180 MG PO SCH (08:50)
[2019-04-07] MEDS: VIBRAMYCIN 100 MG in D5W 250 ML IV 250 ML IV SCH ×2 (09:00→22:15)
[2019-04-07] MEDS: NYSTATIN POWDER TOP SCH ×2 (09:01→22:16)
[2019-04-07] MEDS: CYMBALTA PO SCH (09:06)
[2019-04-07] MEDS ORDERED: ZOFRAN INJ 4 MG VIAL IVP PRN (11:53)
[2019-04-07] MEDS: ROBITUSSIN DM PO PRN (13:51)
[2019-04-07] MEDS: XANAX PO PRN (15:28)
[2019-04-07] MEDS: SYNTHROID 150 mcg TAB PO SCH (16:38)
--- NOTE | 2019-04-07 21:14 | DR.H&P ---
H&P - History & Physical for Day of: H&P Date: 04/05/19 - Chief Complaint Chief Complaint: COUGH, SOB, ABDOMINAL PAIN - History of Present Illness History of Present Illness: IS A 68 YEAR OLD PATIENT OF OURS WHO PRESENTED TO THE ER WITH COMPLAINTS OF ABDOMINAL PAIN, SHORTNESS OF BREATH, AND A PRODUCTIVE COUGH. HE DENIED NAUSEA, VOMITING, OR DIARRHEA. HALF-WAY STAFF REPORTED THAT PATIENTS HEART RATE WAS ELEVATED AND THAT HIS OXYGEN LEVEL WAS 89% ON BIPAP. BILATERAL LUNGS WERE NOTED WITH SCATTERED WHEEZING TO AUSCULTATION. ON ARRIVAL TO THE ER, VITALS WERE 97.2-30-133-92%-126/95. LABS WERE OBTAINED. ABNORMAL LAB VALUES INCLUDE THE FOLLOWING: WBC 14.7, HGB 13.1, HCT 38.6, SODIUM 131, CHLORIDE 94, BUN 20, GLUCOSE 204, CREATINE KINASE 15, TOTAL PROTEIN 9.3, ALBUMIN 3.0, GLOBULIN 6.3. AN ABG WAS OBTAINED AND REVEALED: PH 7.400, PC02 51.0, P02 63.0, HC03 31.6, 02 SATURATION 92.0, BASE EXCESS 5.6. BLOOD AND SPUTUM CULTURES ARE PENDING. AN EKG WAS OBTAINED AND REVEALED: ATRIAL FIBRILLATION WITH HR 111. A CHEST XRAY WAS OBTAINED AND REVEALED: The cardiomediastinal silhouette remains enlarged. Diffuse interstitial thickening throughout the lung grande and reticulonodular densities in the upper and mid lung zones remain which can be seen with chronic bronchitis. However, there is slight worsening of the previously seen ground-glass changes in the lung bases which is concerning for pneumonia. Follow-up CT imaging with IV contrast is recommended for improved inspection. No other acute cardiopulmonary changes are appreciated. HE WAS GIVEN FORTAZ 1GM IV X 1 DOSE AND STARTED ON A CARDIZEM DRIP. WE ADMITTED PATIENT TO THE HOSPITAL FOR FURTHER EVALUATION AND TREATMENT OF LOWER LOBE PNEUMONIA, ATRIAL FIBRILLATION, AND RESPIRATORY DISTRESS. HE WAS STARTED ON THE PNEUMONIA PROTOCOL WITH IV DOXYCYCLINE, IV FORTAZ, RESPIRATORY TREATMENTS, AND SUPPLEMENTAL OXYGEN. HE WILL CONTINUE TO UTILIZE THE BIPAP. OTHERWISE, WE WILL FOLLOW UP WITH AM LABS AND CHEST XRAY AND CONTINUE TO MONITOR. - Past Medical History Past Medical History: Angina, Coronary Artery Disease, Hypertension, Diabetes, Depression, Anxiety, Hypothyroidism, Anemia, COPD, Arthritis, CHF Additional Medical History: Paroxysmal Nocturnal Dyspnea, Muscle Weakness, Back Pain, Knee Pain - Past Surgical History Surgical History: Unknown Additional Surgical History: HEART CATHETERIZATION X 2 - Family History Family Medical History: Diabetes Mellitus, Cancer - Social History Does patient currently use any type of tobacco product: No Have you used tobacco products in the last 12 months: No Type of Tobacco Use: None Does any household member use tobacco: No Alcohol Use: None Drug Use: Prescription Drugs - Medications Home Medications: SHRIMP Allergy (Uncoded 04/06/19 02:03) CONTINUE taking the following medications albuterol sulfate [Proventil HFA] 2 puff INHALATION Q4-6H PRN 04/05/19 [History] alprazolam [Xanax] 0.25 mg PO BID 04/05/19 [History] aspirin [Aspir-81] 81 mg PO QDAY 04/05/19 [History] atorvastatin [Lipitor] 40 mg PO QHS 04/05/19 [History] carvedilol [Coreg] 6.25 mg PO BID 04/05/19 [History] digoxin 125 mcg PO QDAY 04/05/19 [History] diltiazem HCl 180 mg PO QDAY 04/05/19 [History] duloxetine [Cymbalta] 60 mg PO DAILY 04/05/19 [History] famotidine [Pepcid] 20 mg PO BID 04/05/19 [History] ferrous fumarate [Ferrocite] 324 mg PO DAILY 04/05/19 [History] furosemide [Lasix] 40 mg PO BID 04/05/19 [History] insulin detemir U-100 [Levemir U-100 Insulin] 12 unit SUBCUT BID 04/05/19 [History] insulin regular human [Novolin R Regular U-100 Insuln] 1 sliding scale dose SUBCUT UD 04/05/19 [History] levothyroxine [Synthroid] 150 mcg PO QDAY 04/05/19 [History] lisinopril 10 mg PO BID 04/05/19 [History] olanzapine [Zyprexa] 2.5 mg PO DAILY 04/05/19 [History] oxycodone 15 mg PO BID 04/05/19 [History] potassium chloride 20 meq PO BID 04/05/19 [History] sitagliptin [Januvia] 100 mg PO QDAY 04/05/19 [History] - Review of Systems Constitutional: Weakness Eyes: No Symptoms Reported ENT: No Symptoms Reported Respiratory: Cough, Shortness of Breath, SOB with Excertion, Wheezing Gastrointestinal: Abdominal Pain Genitourinary: No Symptoms Reported Musculoskeletal: No Symptoms Reported Skin: No Symptoms Reported Neurological: Weakness - Physical Exam Vital Signs: Temperature 98.3 F Pulse Rate [Apical] 110 Pulse Rate 86 Respiratory Rate 27 Blood Pressure [Left Arm] 121/87 Blood Pressure [Right Arm] 131/61 Blood Pressure 125/67 O2 Sat by Pulse Oximetry 96 Oriented: Normal Eyes: Normal Ear: Normal Nose: Normal Throat: Normal Respiratory: Wheezes Throughout Cardiovascular: Tachycardia : Normal Auscultation: Bowel Sounds: Normal Palpation: Normal Tenderness: Normal Skin: Normal Musculoskeletal: Normal Psychiatric: Normal Mood Description: Calm Affect: Normal Speech Pattern: Clear - Assessment/Plan (1) Pneumonia Qualifiers: Pneumonia type: due to unspecified organism Laterality: left Lung location: lower lobe of lung Qualified Code(s): J18.1 - Lobar pneumonia, unspecified organism Status: Acute Plan: ADMIT, PNEUMONIA PROTOCOL, FORTAZ, DOXY, CONTINUE TO MONITOR (2) Afib Qualifiers: Atrial fibrillation type: chronic Qualified Code(s): I48.2 - Chronic atrial fibrillation Status: Acute Plan: CARDIZEM DRIP, OPS MANAGER, SUPPLEMENTAL OXYGEN, CONTINUE TO MONITOR (3) Respiratory failure with hypoxia and hypercapnia Qualifiers: Chronicity: acute on chronic Qualified Code(s): J96.21 - Acute and chronic respiratory failure with hypoxia; J96.22 - Acute and chronic respiratory failure with hypercapnia Status: Acute - Allergies Allergies/Adverse Reactions: Allergies Allergy/AdvReac Type Severity Reaction Status Date / Time SHRIMP Allergy Uncoded 04/06/19 02:03
[2019-04-07] MEDS: SNACK - Diabetic Appropriate PO SCH (21:19)
--- NOTE | 2019-04-07 21:36 | PCM.PROG ---
Progress Note - Progress Note for Day of Date of Exam: 04/06/19 - Subjective Subjective: WAS ADMITTED FOR LEFT LOBE PNEUMONIA, ATRIAL FIBRILLATION, AND RESPIRATORY DISTRESS. TODAY, HE IS ALERT AND ORIENTED, SITTING UP IN BED ON MORNING ROUNDS. HE CONTINUE WITH COMPLAINTS OF COUGH AND SHORTNESS OF BREATH. ON EXAMINATION, HEART IS REGULAR IN RATE AND RHYTHM. BILATERAL LUNGS ARE NOTED WITH SCATTERED WHEEZING. ABDOMEN IS ROUND, SOFT, AND NON-TENDER WITH NORMAL BOWEL SOUNDS NOTED IN ALL QUADRANTS. BILATERAL LOWER EXTREMITIES ARE NOTED WITH 2+ PITTING EDEMA. HIS VITALS THIS MORNING ARE: 97.1-84-25-92%-120/58. LABS WERE OBTAINED. ABNORMAL LAB VALUES INCLUDE THE FOLLOWING: WBC 11.2, RBC 4.51, HGB 12.4, HCT 36.5, PLT COUNT 138, SODIUM 133, CHLORIDE 97, GLUCOSE 250, MAGNESIUM 1.5, TOTAL PROTEIN 8.7, ALBUMIN 2.6, GLOBULIN 6.1, CREATINE KINASE 25. CARDIAC ENZYMES ARE OTHERWISE WITHIN NORMAL LIMITS. BLOOD AND SPUTUM CULTURES ARE PENDING. EKGS CONTINUE TO REPORT ATRIAL FIBRILLATION. TODAY, WE WILL DISCONTINUE THE CARDIZEM DRIP AND CONTINUE WITH CURRENT PLAN OF CARE. WE PLAN TO FOLLOW UP WITH AM LABS AND CHEST XRAY AND CONTINUE TO MONITOR. - Past Medical Family Social History Past Med/Fam/Surg Hx: No changes since H&P Allergies: Allergies SHRIMP Allergy (Uncoded 04/06/19 02:03) - Review of Systems ROS: No change since H&P - Vital Signs and I&O's Vital Signs: Temperature 98.3 F Pulse Rate [Apical] 110 Pulse Rate 86 Respiratory Rate 27 Blood Pressure [Left Arm] 121/87 Blood Pressure [Right Arm] 131/61 Blood Pressure 125/67 O2 Sat by Pulse Oximetry 96 Intake and Output: Intake & Output 04/05/19 04/06/19 04/07/19 04/08/19 11:59 11:59 11:59 11:59 Intake Total 875 / 875 1622 / 1622 931 / 931 Output Total 600 / 600 1200 / 1200 900 / 900 Balance 275 / 275 422 / 422 - Physical Exam Oriented: Normal Eyes: Normal Ear: Normal Nose: Normal Throat: Normal Cardiovascular: Normal : Normal Auscultation: Bowel Sounds: Normal Palpation: Normal Tenderness: Normal Skin: Normal Musculoskeletal: Normal Psychiatric: Normal Mood Description: Calm Affect: Normal Speech Pattern: Clear - Laboratory and Diagnostics Result Diagrams: 04/07/19 06:00 04/07/19 06:00 Labs: 04/05/19 21:59 Blood Blood Culture - Preliminary 04/05/19 21:52 Blood Blood Culture - Preliminary 04/06/19 08:53 Sputum - Expectorated Sputum Sputum Culture - Preliminary 04/06/19 08:53 Sputum - Expectorated Sputum - Final Laboratory WBC 9.8 X10^3/uL (3.6-10.0) 04/07/19 06:00 RBC 4.27 X10^6/uL (4.7-6.0) L 04/07/19 06:00 Hgb 11.9 g/dL (13.5-18.0) L 04/07/19 06:00 Hct 34.9 % (42.0-54.0) L 04/07/19 06:00 MCV 81.8 fL (80.0-100.0) 04/07/19 06:00 MCH 27.9 pg (27.0-34.0) 04/07/19 06:00 MCHC 34.1 g/dL (33.0-35.0) 04/07/19 06:00 RDW 14.3 % (11.6-16.5) 04/07/19 06:00 Plt Count 168 X10^3/uL (150.0-450.0) 04/07/19 06:00 MPV 9.2 fL (7.4-11.0) 04/07/19 06:00 Neut % (Auto) 72.5 % (42.0-75.0) 04/07/19 06:00 Lymph % (Auto) 11.2 % (21.0-51.0) L 04/07/19 06:00 [place] % (Auto) 14.0 % (0.0-13.0) H 04/07/19 06:00 Eos % (Auto) 1.9 % (0.9-2.9) 04/07/19 06:00 Baso % (Auto) 0.4 % (0.2-1.0) 04/07/19 06:00 Neut # (Auto) 7.1 x10^3/uL (2.2-4.8) H 04/07/19 06:00 Lymph # (Auto) 1.1 X10^3/uL (1.3-2.9) L 04/07/19 06:00 [place] # (Auto) 1.4 x10^3/uL (0.3-0.8) H 04/07/19 06:00 Eos # (Auto) 0.2 x10^3/uL (0.0-0.2) 04/07/19 06:00 Baso # (Auto) 0.0 X10^3/uL (0.0-0.1) 04/07/19 06:00 Absolute Nucleated RBC 0.1 /100WBC 04/07/19 06:00 Sample Site Left radial 04/05/19 18:12 ABG pH 7.400 (7.35-7.45) 04/05/19 18:12 ABG pCO2 51.0 mmHg (35.0-45.0) H* 04/05/19 18:12 ABG pO2 63.0 mmHg (80.0-100.0) L 04/05/19 18:12 ABG HCO3 31.6 mmol/L (22-26) H* 04/05/19 18:12 ABG O2 Saturation 92.0 % (90-100) 04/05/19 18:12 ABG Base Excess 5.6 mmol/L (-2.0-2.0) H 04/05/19 18:12 Enrique Test Pos 04/05/19 18:12 A-a Gradient 101.0 mmHg 04/05/19 18:12 FiO2 32.0 04/05/19 18:12 Blood Gas Comments [place] well aw 04/05/19 18:12 Sodium 134 mmol/L (136-145) L 04/07/19 06:00 Corrected Sodium 136 mmol/L (136-145) 04/07/19 06:00 Potassium 4.2 mmol/L (3.5-5.1) 04/07/19 06:00 Chloride 99 mmol/L (98-107) 04/07/19 06:00 Carbon Dioxide 28.7 mmol/L (21-32) 04/07/19 06:00 BUN 21 mg/dL (7-18) H 04/07/19 06:00 Creatinine 0.73 mg/dL (0.70-1.30) 04/07/19 06:00 Est GFR (MDRD) Af Amer > 60 (>60) 04/07/19 06:00 Est GFR (MDRD) Non-Af > 60 (>60) 04/07/19 06:00 Glucose 180 mg/dL (65-99) H 04/07/19 06:00 Lactic Acid 0.9 mmol/L (0.4-2.0) 04/05/19 21:59 Calcium 10.0 mg/dL (8.5-10.1) 04/07/19 06:00 Corrected Calcium 11.1 mg/dL (8.5-10.1) H 04/07/19 06:00 Magnesium 1.5 mg/dL (1.7-2.9) L 04/06/19 06:00 Total Bilirubin 0.50 mg/dL (0.2-1.0) 04/07/19 06:00 AST 27 Units/L (15-37) 04/07/19 06:00 ALT 20 Units/L (12-78) 04/07/19 06:00 Alkaline Phosphatase 112 Units/L (46-116) 04/07/19 06:00 Creatine Kinase 25 Units/L (39-308) L 04/06/19 00:10 CK-MB (CK-2) < 1.0 ng/mL (0-4.0) 04/06/19 00:10 CK/CKMB % Calc 4.0 % (<4) 04/06/19 00:10 Troponin I < 0.02 ng/mL (0-1.5) 04/06/19 00:10 Total Protein 8.4 g/dL (6.4-8.2) H 04/07/19 06:00 Albumin 2.6 g/dL (3.4-5.0) L 04/07/19 06:00 Globulin 5.8 g/dL (2.5-4.5) H 04/07/19 06:00 Albumin/Globulin Ratio 0.4 Ratio (1.1-2.1) L 04/07/19 06:00 Specimen Type Catherized urine 04/06/19 02:00 Urine Color Yellow (YELLOW) 04/06/19 02:00 Urine Appearance Clear (CLEAR) 04/06/19 02:00 Urine pH 5.0 (5.0 - 8.0) 04/06/19 02:00 Ur Specific [place] 1.020 (1.000-1.030) 04/06/19 02:00 Urine Protein 2+ (NEGATIVE) 04/06/19 02:00 Urine Glucose (UA) Negative (NEGATIVE) 04/06/19 02:00 Urine Ketones 2+ (NEGATIVE) 04/06/19 02:00 Urine Occult Blood Negative (NEGATIVE) 04/06/19 02:00 Urine Nitrite Negative (NEGATIVE) 04/06/19 02:00 Urine Bilirubin Negative (NEGATIVE) 04/06/19 02:00 Urine Urobilinogen Normal (NORMAL) 04/06/19 02:00 Ur Leukocyte Esterase Negative (NEGATIVE) 04/06/19 02:00 Urine RBC None seen /HPF (NONE SEEN) 04/06/19 02:00 Urine WBC None seen /HPF (NONE SEEN) 04/06/19 02:00 Ur Squamous Epith Cells Rare /HPF (NEGATIVE) 04/06/19 02:00 Ur Renal Epithelial Cell Few /HPF (NEGATIVE) 04/05/19 21:01 Amorphous Sediment Trace /HPF (NEGATIVE) 04/05/19 21:01 Urine Bacteria Negative /HPF (NEGATIVE) 04/06/19 02:00 Hyaline Casts Few /LPF (NEGATIVE) 04/05/19 21:01 Ur Culture Indicated? No/not indicated 04/06/19 02:00 Urine Total Volume Cancelled 04/07/19 06:00 Urine Total Protein Cancelled 04/07/19 06:00 Urine Albumin (PEP) Cancelled 04/07/19 06:00 U [id number] Cancelled 04/07/19 06:00 U Chjmv-1-[id number] Cancelled 04/07/19 06:00 U Beta Globulin Cancelled 04/07/19 06:00 U Gamma Globulin Cancelled 04/07/19 06:00 U Free [place] Light Ch Cancelled 04/07/19 06:00 U Free [place] Excretion Cancelled 04/07/19 06:00 U Free Lambda Light Ch Cancelled 04/07/19 06:00 Free Lambda Excret 24 Cancelled 04/07/19 06:00 U Free [place]/Lambda 24 Cancelled 04/07/19 06:00 Digoxin 0.53 ng/mL (0.9-2) L 04/06/19 06:00 BETTY & SPEP Interp Cancelled 04/07/19 06:00 - Plan (1) Pneumonia Status: Acute Qualifiers: Pneumonia type: due to unspecified organism Laterality: left Lung location: lower lobe of lung Qualified Code(s): J18.1 - Lobar pneumonia, unspecified organism Plan: PNEUMONIA PROTOCOL, FORTAZ, DOXY, RESPIRATORY TREATMENTS, SUPPLEMENTAL OXYGEN, CONTINUE TO MONITOR (2) Afib Status: Acute Qualifiers: Atrial fibrillation type: chronic Qualified Code(s): I48.2 - Chronic atrial fibrillation Plan: 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
[2019-04-07] MEDS: LIPITOR TAB 40 MG PO SCH (22:00)
[2019-04-07] MEDS: ROXICODONE TAB 15 MG PO PRN (22:26)
[2019-04-08] MEDS: NS 1000 ML 1,000 ML IV SCH ×2 (00:57→22:02)
[2019-04-08 05:36] LABS: BASOPHILS % (AUTO) 0.4 % (0.2-1.0); EOSINOPHILS # (AUTO) 0.2 x10^3/uL (0.0-0.2); EOSINOPHILS % (AUTO) 2.2 % (0.9-2.9); HEMATOCRIT 35.4 % (42.0-54.0); LYMPHOCYTES # (AUTO) 1.5 X10^3/uL (1.3-2.9); LYMPHOCYTES % (AUTO) 17.9 % (21.0-51.0); MEAN CORPUSCULAR HEMOGLOBIN 27.6 pg (27.0-34.0); MEAN CORPUSCULAR HGB CONC 33.8 g/dL (33.0-35.0); MEAN CORPUSCULAR VOLUME 81.7 fL (80.0-100.0); MEAN PLATELET VOLUME 10.3 fL (7.4-11.0); MONOCYTES # (AUTO) 1.3 x10^3/uL (0.3-0.8); MONOCYTES % (AUTO) 15.6 % (0.0-13.0); NEUTROPHILS # (AUTO) 5.4 x10^3/uL (2.2-4.8); NEUTROPHILS % (AUTO) 63.9 % (42.0-75.0); PLATELET COUNT 167 X10^3/uL (150.0-450.0); RED BLOOD COUNT 4.34 X10^6/uL (4.7-6.0); RED CELL DISTRIBUTION WIDTH 14.3 % (11.6-16.5); WHITE BLOOD COUNT 8.5 X10^3/uL (3.6-10.0)
[2019-04-08] MEDS: FORTAZ or TAZICEF VIAL INJ IVP SCH ×3 (05:43→21:57)
[2019-04-08] MEDS: HumuLIN R SUBCUT SCH ×4 (05:45→21:56)
[2019-04-08 05:53] LABS: ALANINE AMINOTRANSFERASE 24 Units/L (12-78); ALBUMIN 2.5 g/dL (3.4-5.0); ALKALINE PHOSPHATASE 101 Units/L (46-116); ASPARTATE AMINO TRANSFERASE 26 Units/L (15-37); BLOOD UREA NITROGEN 12 mg/dL (7-18); CALCIUM 10.1 mg/dL (8.5-10.1); CARBON DIOXIDE 30.9 mmol/L (21-32); CHLORIDE 98 mmol/L (98-107); COR CA(FOR HYPOALB) 11.3 mg/dL (8.5-10.1); COR NA(FOR HYPERGLY) 137 mmol/L (136-145); CREATININE 0.72 mg/dL (0.70-1.30); SODIUM 135 mmol/L (136-145); TOTAL PROTEIN 8.4 g/dL (6.4-8.2); eGFR NON BLACK RACES > 60 (>60)
--- NOTE | 2019-04-08 06:07 | RAD ---
Examination: AP chest History: SOB Comparison 04/07/2019 Findings: Mild stable cardiomegaly. Diffuse bilateral interstitial prominence without focal consolidation, mass or large pneumothorax. Evaluation is limited by motion artifact and obscuring metallic objects projected over the heart and lower lungs. Impression: No definite interval change. See above. Reported By:
[2019-04-08] MEDS: ZESTRIL TAB 10 MG PO SCH ×2 (08:42→21:50)
[2019-04-08] MEDS: JANUVIA PO SCH (08:42)
[2019-04-08] MEDS: K-DUR TAB 20 MEQ PO SCH ×2 (08:42→21:59)
[2019-04-08] MEDS: HEMOCYTE-PLUS PO SCH (08:43)
[2019-04-08] MEDS: CARDIZEM CD 180 MG PO SCH (08:43)
[2019-04-08] MEDS: LANOXIN PO SCH (08:43)
[2019-04-08] MEDS: PEPCID TAB 20 MG PO SCH ×2 (08:43→22:00)
[2019-04-08] MEDS: ASPIRIN EC 81 MG PO SCH (08:43)
[2019-04-08] MEDS: LASIX PO SCH ×2 (08:44→21:59)
[2019-04-08] MEDS: COREG TAB 6.25 MG PO SCH ×2 (08:44→21:49)
[2019-04-08] MEDS: LEVEMIR SC SCH ×2 (08:45→21:59)
[2019-04-08] MEDS: LOVENOX INJ 40 MG SYR SC SCH (08:47)
[2019-04-08] MEDS: VIBRAMYCIN 100 MG in D5W 250 ML IV 250 ML IV SCH ×2 (09:10→22:00)
[2019-04-08] MEDS: XOPENEX 1.25 MG/3 ML NEBULE NEB SCH ×4 (09:10→20:03)
[2019-04-08] MEDS: CYMBALTA PO SCH (09:53)
[2019-04-08] MEDS: NYSTATIN POWDER TOP SCH ×2 (09:53→22:00)
[2019-04-08] MEDS: SYNTHROID 150 mcg TAB PO SCH (16:47)
[2019-04-08] MEDS: SNACK - Diabetic Appropriate PO SCH (21:20)
[2019-04-08] MEDS: ROXICODONE TAB 15 MG PO PRN (21:58)
[2019-04-08] MEDS: LIPITOR TAB 40 MG PO SCH (22:00)
--- NOTE | 2019-04-08 22:00 | PCM.PROG ---
Progress Note - Progress Note for Day of Date of Exam: 04/07/19 - Subjective Subjective: WAS ADMITTED FOR LEFT LOBE PNEUMONIA, ATRIAL FIBRILLATION, AND RESPIRATORY DISTRESS. TODAY, HE IS ALERT AND ORIENTED, SITTING UP IN BED ON MORNING ROUNDS. HE CONTINUE WITH COMPLAINTS OF COUGH AND SHORTNESS OF BREATH. ON EXAMINATION, HEART IS REGULAR IN RATE AND RHYTHM. BILATERAL LUNGS ARE NOTED WITH SCATTERED WHEEZING. ABDOMEN IS ROUND, SOFT, AND NON-TENDER WITH NORMAL BOWEL SOUNDS NOTED IN ALL QUADRANTS. BILATERAL LOWER EXTREMITIES ARE NOTED WITH 2+ PITTING EDEMA. SCHMID CATHETER NOTED TO BEDSIDE DRAINAGE. HIS VITALS THIS MORNING ARE: 98.3-95-27-94%NC-126/84. LABS WERE OBTAINED. ABNORMAL LAB VALUES INCLUDE THE FOLLOWING: RBC 4.27, HGB 11.9, HCT 34.9, SODIUM 134, BUN 21, GLUCOSE 180, TOTAL PROTEIN 8.4, ALBUMIN 2.6. CARDIAC ENZYMES ARE WITHIN NORMAL LIMITS. BLOOD AND SPUTUM CULTURES ARE PENDING. EKGS CONTINUE TO REPORT ATRIAL FIBRILLATION. A CHEST XRAY WAS OBTAINED AND REVEALED: Continued cardiomegaly without definite congestive heart failure. No definite infiltrates identified. Limited evaluation of the left lower lobe due to the cardiomegaly and rotation. TODAY, WE WILL CONTINUE WITH IV FLUIDS, IV ANTIBIOTICS, RESPIRATORY TREATMENTS, AND CURRENT PLAN OF CARE. WE PLAN TO FOLLOW UP WITH AM LABS AND CHEST XRAY AND CONTINUE TO MONITOR. - Past Medical Family Social History Past Med/Fam/Surg Hx: No changes since H&P Allergies: Allergies SHRIMP Allergy (Uncoded 04/06/19 02:03) - Review of Systems ROS: No change since H&P - Vital Signs and I&O's Vital Signs: Temperature 98.8 F Pulse Rate [Apical] 110 Pulse Rate 78 Respiratory Rate 28 Blood Pressure [Left Arm] 121/87 Blood Pressure [Right Arm] 131/61 Blood Pressure 120/55 O2 Sat by Pulse Oximetry 95 Intake and Output: Intake & Output 04/06/19 04/07/19 04/08/19 04/09/19 11:59 11:59 11:59 11:59 Intake Total 875 / 875 1622 / 1622 2430 / 2430 785 / 785 Output Total 600 / 600 1200 / 1200 4000 / 4000 1200 / 1200 Balance 275 / 275 422 / 422 -1570 / -1570 -415 / -415 - Physical Exam Oriented: Normal Eyes: Normal Ear: Normal Nose: Normal Throat: Normal Cardiovascular: Normal : Normal Auscultation: Bowel Sounds: Normal Tenderness: Normal Skin: Normal Musculoskeletal: Normal Psychiatric: Normal Mood Description: Calm Affect: Normal Speech Pattern: Delayed - Laboratory and Diagnostics Result Diagrams: 04/08/19 04:13 04/08/19 04:13 Labs: 04/06/19 08:53 Sputum - Expectorated Sputum Sputum Culture - Final 04/06/19 08:53 Sputum - Expectorated Sputum - Final 04/05/19 21:59 Blood Blood Culture - Preliminary 04/05/19 21:52 Blood Blood Culture - Preliminary Laboratory WBC 8.5 X10^3/uL (3.6-10.0) 04/08/19 04:13 RBC 4.34 X10^6/uL (4.7-6.0) L 04/08/19 04:13 Hgb 12.0 g/dL (13.5-18.0) L 04/08/19 04:13 Hct 35.4 % (42.0-54.0) L 04/08/19 04:13 MCV 81.7 fL (80.0-100.0) 04/08/19 04:13 MCH 27.6 pg (27.0-34.0) 04/08/19 04:13 MCHC 33.8 g/dL (33.0-35.0) 04/08/19 04:13 RDW 14.3 % (11.6-16.5) 04/08/19 04:13 Plt Count 167 X10^3/uL (150.0-450.0) 04/08/19 04:13 MPV 10.3 fL (7.4-11.0) 04/08/19 04:13 Neut % (Auto) 63.9 % (42.0-75.0) 04/08/19 04:13 Lymph % (Auto) 17.9 % (21.0-51.0) L 04/08/19 04:13 [place] % (Auto) 15.6 % (0.0-13.0) H 04/08/19 04:13 Eos % (Auto) 2.2 % (0.9-2.9) 04/08/19 04:13 Baso % (Auto) 0.4 % (0.2-1.0) 04/08/19 04:13 Neut # (Auto) 5.4 x10^3/uL (2.2-4.8) H 04/08/19 04:13 Lymph # (Auto) 1.5 X10^3/uL (1.3-2.9) 04/08/19 04:13 [place] # (Auto) 1.3 x10^3/uL (0.3-0.8) H 04/08/19 04:13 Eos # (Auto) 0.2 x10^3/uL (0.0-0.2) 04/08/19 04:13 Baso # (Auto) 0.0 X10^3/uL (0.0-0.1) 04/08/19 04:13 Absolute Nucleated RBC 0.2 /100WBC 04/08/19 04:13 Sample Site Left radial 04/05/19 18:12 ABG pH 7.400 (7.35-7.45) 04/05/19 18:12 ABG pCO2 51.0 mmHg (35.0-45.0) H* 04/05/19 18:12 ABG pO2 63.0 mmHg (80.0-100.0) L 04/05/19 18:12 ABG HCO3 31.6 mmol/L (22-26) H* 04/05/19 18:12 ABG O2 Saturation 92.0 % (90-100) 04/05/19 18:12 ABG Base Excess 5.6 mmol/L (-2.0-2.0) H 04/05/19 18:12 Enrique Test Pos 04/05/19 18:12 A-a Gradient 101.0 mmHg 04/05/19 18:12 FiO2 32.0 04/05/19 18:12 Blood Gas Comments [place] well aw 04/05/19 18:12 Sodium 135 mmol/L (136-145) L 04/08/19 04:13 Corrected Sodium 137 mmol/L (136-145) 04/08/19 04:13 Potassium 4.3 mmol/L (3.5-5.1) 04/08/19 04:13 Chloride 98 mmol/L (98-107) 04/08/19 04:13 Carbon Dioxide 30.9 mmol/L (21-32) 04/08/19 04:13 BUN 12 mg/dL (7-18) 04/08/19 04:13 Creatinine 0.72 mg/dL (0.70-1.30) 04/08/19 04:13 Est GFR (MDRD) Af Amer > 60 (>60) 04/08/19 04:13 Est GFR (MDRD) Non-Af > 60 (>60) 04/08/19 04:13 Glucose 178 mg/dL (65-99) H 04/08/19 04:13 Lactic Acid 0.9 mmol/L (0.4-2.0) 04/05/19 21:59 Calcium 10.1 mg/dL (8.5-10.1) 04/08/19 04:13 Corrected Calcium 11.3 mg/dL (8.5-10.1) H 04/08/19 04:13 Magnesium 1.5 mg/dL (1.7-2.9) L 04/06/19 06:00 Total Bilirubin 0.30 mg/dL (0.2-1.0) 04/08/19 04:13 AST 26 Units/L (15-37) 04/08/19 04:13 ALT 24 Units/L (12-78) 04/08/19 04:13 Alkaline Phosphatase 101 Units/L (46-116) 04/08/19 04:13 Creatine Kinase 25 Units/L (39-308) L 04/06/19 00:10 CK-MB (CK-2) < 1.0 ng/mL (0-4.0) 04/06/19 00:10 CK/CKMB % Calc 4.0 % (<4) 04/06/19 00:10 Troponin I < 0.02 ng/mL (0-1.5) 04/06/19 00:10 Total Protein 8.4 g/dL (6.4-8.2) H 04/08/19 04:13 Albumin 2.5 g/dL (3.4-5.0) L 04/08/19 04:13 Globulin 5.9 g/dL (2.5-4.5) H 04/08/19 04:13 Albumin/Globulin Ratio 0.4 Ratio (1.1-2.1) L 04/08/19 04:13 Specimen Type Catherized urine 04/06/19 02:00 Urine Color Yellow (YELLOW) 04/06/19 02:00 Urine Appearance Clear (CLEAR) 04/06/19 02:00 Urine pH 5.0 (5.0 - 8.0) 04/06/19 02:00 Ur Specific [place] 1.020 (1.000-1.030) 04/06/19 02:00 Urine Protein 2+ (NEGATIVE) 04/06/19 02:00 Urine Glucose (UA) Negative (NEGATIVE) 04/06/19 02:00 Urine Ketones 2+ (NEGATIVE) 04/06/19 02:00 Urine Occult Blood Negative (NEGATIVE) 04/06/19 02:00 Urine Nitrite Negative (NEGATIVE) 04/06/19 02:00 Urine Bilirubin Negative (NEGATIVE) 04/06/19 02:00 Urine Urobilinogen Normal (NORMAL) 04/06/19 02:00 Ur Leukocyte Esterase Negative (NEGATIVE) 04/06/19 02:00 Urine RBC None seen /HPF (NONE SEEN) 04/06/19 02:00 Urine WBC None seen /HPF (NONE SEEN) 04/06/19 02:00 Ur Squamous Epith Cells Rare /HPF (NEGATIVE) 04/06/19 02:00 Ur Renal Epithelial Cell Few /HPF (NEGATIVE) 04/05/19 21:01 Amorphous Sediment Trace /HPF (NEGATIVE) 04/05/19 21:01 Urine Bacteria Negative /HPF (NEGATIVE) 04/06/19 02:00 Hyaline Casts Few /LPF (NEGATIVE) 04/05/19 21:01 Ur Culture Indicated? No/not indicated 04/06/19 02:00 Urine Total Volume Cancelled 04/07/19 06:00 Urine Total Protein Cancelled 04/07/19 06:00 Urine Albumin (PEP) Cancelled 04/07/19 06:00 U [id number]-[id number] Cancelled 04/07/19 06:00 U Fvrog-8-Npwcadrk Cancelled 04/07/19 06:00 U Beta Globulin Cancelled 04/07/19 06:00 U Gamma Globulin Cancelled 04/07/19 06:00 U Free [place] Light Ch Cancelled 04/07/19 06:00 U Free [place] Excretion Cancelled 04/07/19 06:00 U Free Lambda Light Ch Cancelled 04/07/19 06:00 Free Lambda Excret 24 Cancelled 04/07/19 06:00 U Free [place]/Lambda 24 Cancelled 04/07/19 06:00 Digoxin 0.53 ng/mL (0.9-2) L 04/06/19 06:00 BETTY & SPEP Interp Cancelled 04/07/19 06:00 - Plan (1) Pneumonia Status: Acute Qualifiers: Pneumonia type: due to unspecified organism Laterality: left Lung location: lower lobe of lung Qualified Code(s): J18.1 - Lobar pneumonia, unspecified organism Plan: PNEUMONIA PROTOCOL, FORTAZ, DOXY, RESPIRATORY TREATMENTS, SUPPLEMENTAL OXYGEN, CONTINUE TO MONITOR (2) Afib Status: Acute Qualifiers: Atrial fibrillation type: chronic Qualified Code(s): I48.2 - Chronic atrial fibrillation Plan: 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
--- NOTE | 2019-04-09 05:11 | RAD ---
Chest radiograph, single AP view. History: Shortness of breath. Comparison: 04/08/2019. Findings: Cardiac silhouette and pulmonary vasculature are unchanged. There is no new consolidation. No sizable pleural effusion or evidence of pneumothorax. Conclusion: Stable examination. Reported By:
[2019-04-09 05:27] LABS: BASOPHILS # (AUTO) 0.1 X10^3/uL (0.0-0.1); BASOPHILS % (AUTO) 0.9 % (0.2-1.0); EOSINOPHILS # (AUTO) 0.2 x10^3/uL (0.0-0.2); EOSINOPHILS % (AUTO) 2.9 % (0.9-2.9); HEMATOCRIT 33.5 % (42.0-54.0); HEMOGLOBIN 11.3 g/dL (13.5-18.0); LYMPHOCYTES # (AUTO) 1.4 X10^3/uL (1.3-2.9); LYMPHOCYTES % (AUTO) 20.4 % (21.0-51.0); MEAN CORPUSCULAR HEMOGLOBIN 27.4 pg (27.0-34.0); MEAN CORPUSCULAR HGB CONC 33.7 g/dL (33.0-35.0); MEAN CORPUSCULAR VOLUME 81.4 fL (80.0-100.0); MEAN PLATELET VOLUME 8.8 fL (7.4-11.0); MONOCYTES # (AUTO) 1.2 x10^3/uL (0.3-0.8); MONOCYTES % (AUTO) 17.9 % (0.0-13.0); NEUTROPHILS # (AUTO) 3.9 x10^3/uL (2.2-4.8); NEUTROPHILS % (AUTO) 57.9 % (42.0-75.0); PLATELET COUNT 151 X10^3/uL (150.0-450.0); RED BLOOD COUNT 4.11 X10^6/uL (4.7-6.0); RED CELL DISTRIBUTION WIDTH 14.3 % (11.6-16.5); WHITE BLOOD COUNT 6.8 X10^3/uL (3.6-10.0)
[2019-04-09 05:39] LABS: ALANINE AMINOTRANSFERASE 23 Units/L (12-78); ALBUMIN 2.4 g/dL (3.4-5.0); ALKALINE PHOSPHATASE 94 Units/L (46-116); ASPARTATE AMINO TRANSFERASE 21 Units/L (15-37); BLOOD UREA NITROGEN 11 mg/dL (7-18); CALCIUM 10.2 mg/dL (8.5-10.1); CARBON DIOXIDE 37.3 mmol/L (21-32); CHLORIDE 98 mmol/L (98-107); COR CA(FOR HYPOALB) 11.5 mg/dL (8.5-10.1); COR NA(FOR HYPERGLY) 140 mmol/L (136-145); SODIUM 139 mmol/L (136-145); eGFR NON BLACK RACES > 60 (>60)
[2019-04-09] MEDS: HumuLIN R SUBCUT SCH ×4 (06:05→22:30)
[2019-04-09] MEDS: FORTAZ or TAZICEF VIAL INJ IVP SCH ×3 (06:47→22:41)
[2019-04-09] MEDS: XOPENEX 1.25 MG/3 ML NEBULE NEB SCH ×4 (09:02→20:22)
[2019-04-09] MEDS: JANUVIA PO SCH (09:26)
[2019-04-09] MEDS: LANOXIN PO SCH (09:26)
[2019-04-09] MEDS: LASIX PO SCH ×2 (09:26→22:32)
[2019-04-09] MEDS: ASPIRIN EC 81 MG PO SCH (09:26)
[2019-04-09] MEDS: COREG TAB 6.25 MG PO SCH ×2 (09:27→22:31)
[2019-04-09] MEDS: PEPCID TAB 20 MG PO SCH ×2 (09:27→22:32)
[2019-04-09] MEDS: NYSTATIN POWDER TOP SCH ×2 (09:27→22:00)
[2019-04-09] MEDS: HEMOCYTE-PLUS PO SCH (09:27)
[2019-04-09] MEDS: CARDIZEM CD 180 MG PO SCH (09:27)
[2019-04-09] MEDS: ZESTRIL TAB 10 MG PO SCH ×2 (09:27→22:33)
[2019-04-09] MEDS: K-DUR TAB 20 MEQ PO SCH ×2 (09:27→22:31)
[2019-04-09] MEDS: CYMBALTA PO SCH (09:29)
[2019-04-09] MEDS: VIBRAMYCIN 100 MG in D5W 250 ML IV 250 ML IV SCH ×2 (09:30→23:23)
[2019-04-09] MEDS: LOVENOX INJ 40 MG SYR SC SCH (09:31)
[2019-04-09] MEDS: LEVEMIR SC SCH ×2 (09:32→23:19)
--- NOTE | 2019-04-09 14:04 | PCM.PROG ---
Progress Note - Progress Note for Day of Date of Exam: 04/08/19 - Subjective Subjective: WAS ADMITTED FOR LEFT LOBE PNEUMONIA, ATRIAL FIBRILLATION, AND RESPIRATORY DISTRESS. TODAY, HE IS ALERT AND ORIENTED, SITTING UP IN BED ON MORNING ROUNDS. HE CONTINUE WITH COMPLAINTS OF COUGH AND SHORTNESS OF BREATH, BUT REPORTS SLIGHT IMPROVEMENT TODAY. ON EXAMINATION, HEART IS RE GULAR IN RATE AND RHYTHM. BILATERAL LUNGS ARE NOTED WITH SCATTERED WHEEZING. ABDOMEN IS ROUND, SOFT, AND NON-TENDER WITH NORMAL BOWEL SOUNDS NOTED IN ALL QUADRANTS. BILATERAL LOWER EXTREMITIES ARE NOTED WITH 1+ PITTING EDEMA. SCHMID CATHETER NOTED TO BEDSIDE DRAINAGE. HIS VITALS THIS MORNING ARE: 97. 0-87-30-97%NC-120/58. LABS WERE OBTAINED. ABNORMAL LAB VALUES INCLUDE THE FOLLOWING: RBC 4.34, HGB 12.0, HCT 35.4, SODIUM 135, GLUCOSE 178, TOTAL PROTEIN 8.4, ALBUMIN 2.5, GLOBULIN 5.9. CARDIAC ENZYMES ARE WITHIN NORMAL LIMITS. BLOOD AND SPUTUM CULTURES ARE PENDING. A CHEST XRAY WAS OBTAINED AND REVEALED: Mild stable cardiomegaly. Diffuse bilateral interstitial prominence without focal consolidation, mass or large pneumothorax. Evaluation is limited by motion artifact and obscuring metallic objects projected over the heart and lower lungs. TODAY, WE WILL CONTINUE WITH IV FLUIDS, IV ANTIBIOTICS, RESPIRATORY TREATMENTS, AND CURRENT PLAN OF CARE. WE WILL START BLADDER TRAINING AND DISCONTINUE HIS CATHETER TODAY. OTHERWISE, WE PLAN TO FOLLOW UP WITH AM LABS AND CHEST XRAY AND CONTINUE TO MONITOR. - Past Medical Family Social History Past Med/Fam/Surg Hx: No changes since H&P Allergies: Allergies SHRIMP Allergy (Uncoded 04/06/19 02:03) - Review of Systems ROS: No change since H&P - Vital Signs and I&O's Vital Signs: Temperature 98.0 F Pulse Rate [Apical] 110 Pulse Rate 83 Respiratory Rate 32 Blood Pressure [Left Arm] 121/87 Blood Pressure [Right Arm] 131/61 Blood Pressure 140/65 O2 Sat by Pulse Oximetry 97 Intake and Output: Intake & Output 04/07/19 04/08/19 04/09/19 04/10/19 11:59 11:59 11:59 11:59 Intake Total 1622 / 1622 2430 / 2430 2207 / 2207 Output Total 1200 / 1200 4000 / 4000 3750 / 3750 Balance 422 / 422 -1570 / -1570 -1543 / -1543 - Physical Exam Oriented: Normal Eyes: Normal Ear: Normal Nose: Normal Throat: Normal Cardiovascular: Normal : Normal Auscultation: Bowel Sounds: Normal Tenderness: Normal Skin: Normal Musculoskeletal: Normal Psychiatric: Normal Mood Description: Calm Affect: Normal Speech Pattern: Delayed - Laboratory and Diagnostics Result Diagrams: 04/09/19 04:10 04/09/19 04:10 Labs: 04/06/19 08:53 Sputum - Expectorated Sputum Sputum Culture - Final 04/06/19 08:53 Sputum - Expectorated Sputum - Final 04/05/19 21:59 Blood Blood Culture - Preliminary 04/05/19 21:52 Blood Blood Culture - Preliminary Laboratory WBC 6.8 X10^3/uL (3.6-10.0) 04/09/19 04:10 RBC 4.11 X10^6/uL (4.7-6.0) L 04/09/19 04:10 Hgb 11.3 g/dL (13.5-18.0) L 04/09/19 04:10 Hct 33.5 % (42.0-54.0) L 04/09/19 04:10 MCV 81.4 fL (80.0-100.0) 04/09/19 04:10 MCH 27.4 pg (27.0-34.0) 04/09/19 04:10 MCHC 33.7 g/dL (33.0-35.0) 04/09/19 04:10 RDW 14.3 % (11.6-16.5) 04/09/19 04:10 Plt Count 151 X10^3/uL (150.0-450.0) 04/09/19 04:10 MPV 8.8 fL (7.4-11.0) 04/09/19 04:10 Neut % (Auto) 57.9 % (42.0-75.0) 04/09/19 04:10 Lymph % (Auto) 20.4 % (21.0-51.0) L 04/09/19 04:10 Wheeler % (Auto) 17.9 % (0.0-13.0) H 04/09/19 04:10 Eos % (Auto) 2.9 % (0.9-2.9) 04/09/19 04:10 Baso % (Auto) 0.9 % (0.2-1.0) 04/09/19 04:10 Neut # (Auto) 3.9 x10^3/uL (2.2-4.8) 04/09/19 04:10 Lymph # (Auto) 1.4 X10^3/uL (1.3-2.9) 04/09/19 04:10 Wheeler # (Auto) 1.2 x10^3/uL (0.3-0.8) H 04/09/19 04:10 Eos # (Auto) 0.2 x10^3/uL (0.0-0.2) 04/09/19 04:10 Baso # (Auto) 0.1 X10^3/uL (0.0-0.1) 04/09/19 04:10 Absolute Nucleated RBC 0.0 /100WBC 04/09/19 04:10 Sample Site Left radial 04/05/19 18:12 ABG pH 7.400 (7.35-7.45) 04/05/19 18:12 ABG pCO2 51.0 mmHg (35.0-45.0) H* 04/05/19 18:12 ABG pO2 63.0 mmHg (80.0-100.0) L 04/05/19 18:12 ABG HCO3 31.6 mmol/L (22-26) H* 04/05/19 18:12 ABG O2 Saturation 92.0 % (90-100) 04/05/19 18:12 ABG Base Excess 5.6 mmol/L (-2.0-2.0) H 04/05/19 18:12 Enrique Test Pos 04/05/19 18:12 A-a Gradient 101.0 mmHg 04/05/19 18:12 FiO2 32.0 04/05/19 18:12 Blood Gas Comments Vida well aw 04/05/19 18:12 Sodium 139 mmol/L (136-145) 04/09/19 04:10 Corrected Sodium 140 mmol/L (136-145) 04/09/19 04:10 Potassium 4.5 mmol/L (3.5-5.1) 04/09/19 04:10 Chloride 98 mmol/L (98-107) 04/09/19 04:10 Carbon Dioxide 37.3 mmol/L (21-32) H 04/09/19 04:10 BUN 11 mg/dL (7-18) 04/09/19 04:10 Creatinine 0.70 mg/dL (0.70-1.30) 04/09/19 04:10 Est GFR (MDRD) Af Amer > 60 (>60) 04/09/19 04:10 Est GFR (MDRD) Non-Af > 60 (>60) 04/09/19 04:10 Glucose 139 mg/dL (65-99) H 04/09/19 04:10 Lactic Acid 0.9 mmol/L (0.4-2.0) 04/05/19 21:59 Calcium 10.2 mg/dL (8.5-10.1) H 04/09/19 04:10 Corrected Calcium 11.5 mg/dL (8.5-10.1) H 04/09/19 04:10 Magnesium 1.5 mg/dL (1.7-2.9) L 04/06/19 06:00 Total Bilirubin 0.30 mg/dL (0.2-1.0) 04/09/19 04:10 AST 21 Units/L (15-37) 04/09/19 04:10 ALT 23 Units/L (12-78) 04/09/19 04:10 Alkaline Phosphatase 94 Units/L (46-116) 04/09/19 04:10 Creatine Kinase 25 Units/L (39-308) L 04/06/19 00:10 CK-MB (CK-2) < 1.0 ng/mL (0-4.0) 04/06/19 00:10 CK/CKMB % Calc 4.0 % (<4) 04/06/19 00:10 Troponin I < 0.02 ng/mL (0-1.5) 04/06/19 00:10 Total Protein 8.0 g/dL (6.4-8.2) 04/09/19 04:10 Albumin 2.4 g/dL (3.4-5.0) L 04/09/19 04:10 Globulin 5.6 g/dL (2.5-4.5) H 04/09/19 04:10 Albumin/Globulin Ratio 0.4 Ratio (1.1-2.1) L 04/09/19 04:10 Specimen Type Catherized urine 04/06/19 02:00 Urine Color Yellow (YELLOW) 04/06/19 02:00 Urine Appearance Clear (CLEAR) 04/06/19 02:00 Urine pH 5.0 (5.0 - 8.0) 04/06/19 02:00 Ur Specific [place] 1.020 (1.000-1.030) 04/06/19 02:00 Urine Protein 2+ (NEGATIVE) 04/06/19 02:00 Urine Glucose (UA) Negative (NEGATIVE) 04/06/19 02:00 Urine Ketones 2+ (NEGATIVE) 04/06/19 02:00 Urine Occult Blood Negative (NEGATIVE) 04/06/19 02:00 Urine Nitrite Negative (NEGATIVE) 04/06/19 02:00 Urine Bilirubin Negative (NEGATIVE) 04/06/19 02:00 Urine Urobilinogen Normal (NORMAL) 04/06/19 02:00 Ur Leukocyte Esterase Negative (NEGATIVE) 04/06/19 02:00 Urine RBC None seen /HPF (NONE SEEN) 04/06/19 02:00 Urine WBC None seen /HPF (NONE SEEN) 04/06/19 02:00 Ur Squamous Epith Cells Rare /HPF (NEGATIVE) 04/06/19 02:00 Ur Renal Epithelial Cell Few /HPF (NEGATIVE) 04/05/19 21:01 Amorphous Sediment Trace /HPF (NEGATIVE) 04/05/19 21:01 Urine Bacteria Negative /HPF (NEGATIVE) 04/06/19 02:00 Hyaline Casts Few /LPF (NEGATIVE) 04/05/19 21:01 Ur Culture Indicated? No/not indicated 04/06/19 02:00 Urine Total Volume Cancelled 04/07/19 06:00 Urine Total Protein Cancelled 04/07/19 06:00 Urine Albumin (PEP) Cancelled 04/07/19 06:00 U [id number]-2-[id number] Cancelled 04/07/19 06:00 U [id number]-4-Sykaylly Cancelled 04/07/19 06:00 U Beta Globulin Cancelled 04/07/19 06:00 U Gamma Globulin Cancelled 04/07/19 06:00 U Free [place] Light Ch Cancelled 04/07/19 06:00 U Free [place] Excretion Cancelled 04/07/19 06:00 U Free Lambda Light Ch Cancelled 04/07/19 06:00 Free Lambda Excret 24 Cancelled 04/07/19 06:00 U Free [place]/Lambda 24 Cancelled 04/07/19 06:00 Digoxin 0.53 ng/mL (0.9-2) L 04/06/19 06:00 BETTY & SPEP Interp Cancelled 04/07/19 06:00 - Plan (1) Pneumonia Status: Acute Qualifiers: Pneumonia type: due to unspecified organism Laterality: left Lung location: lower lobe of lung Qualified Code(s): J18.1 - Lobar pneumonia, unspecified organism Plan: PNEUMONIA PROTOCOL, FORTAZ, DOXY, RESPIRATORY TREATMENTS, SUPPLEMENTAL OXYGEN, CONTINUE TO MONITOR (2) Afib Status: Acute Qualifiers: Atrial fibrillation type: chronic Qualified Code(s): I48.2 - Chronic atrial fibrillation Plan: CONTINUE HOME MEDS, ADMINISTRATION DEAN, SUPPLEMENTAL OXYGEN, CONTINUE TO MONITOR (3) Respiratory failure with hypoxia and hypercapnia Status: Acute Qualifiers: Chronicity: acute on chronic Qualified Code(s): J96.21 - Acute and chronic respiratory failure with hypoxia; J96.22 - Acute and chronic respiratory failure with hypercapnia
[2019-04-09] MEDS: ROBITUSSIN DM PO PRN (15:35)
[2019-04-09] MEDS: SYNTHROID 150 mcg TAB PO SCH (17:30)
[2019-04-09] MEDS: SNACK - Diabetic Appropriate PO SCH (21:00)
[2019-04-09] MEDS: LIPITOR TAB 40 MG PO SCH (22:32)
[2019-04-09] MEDS: ROXICODONE TAB 15 MG PO PRN (22:33)
[2019-04-09] MEDS: XANAX PO PRN (22:34)
[2019-04-10 05:47] LABS: BASOPHILS # (AUTO) 0.1 X10^3/uL (0.0-0.1); BASOPHILS % (AUTO) 0.9 % (0.2-1.0); EOSINOPHILS # (AUTO) 0.3 x10^3/uL (0.0-0.2); EOSINOPHILS % (AUTO) 3.9 % (0.9-2.9); HEMATOCRIT 37.4 % (42.0-54.0); HEMOGLOBIN 12.8 g/dL (13.5-18.0); LYMPHOCYTES # (AUTO) 1.7 X10^3/uL (1.3-2.9); LYMPHOCYTES % (AUTO) 25.1 % (21.0-51.0); MEAN CORPUSCULAR HEMOGLOBIN 27.7 pg (27.0-34.0); MEAN CORPUSCULAR HGB CONC 34.1 g/dL (33.0-35.0); MEAN PLATELET VOLUME 9.1 fL (7.4-11.0); MONOCYTES # (AUTO) 1.1 x10^3/uL (0.3-0.8); MONOCYTES % (AUTO) 15.5 % (0.0-13.0); NEUTROPHILS # (AUTO) 3.8 x10^3/uL (2.2-4.8); NEUTROPHILS % (AUTO) 54.6 % (42.0-75.0); PLATELET COUNT 180 X10^3/uL (150.0-450.0); RED BLOOD COUNT 4.61 X10^6/uL (4.7-6.0); RED CELL DISTRIBUTION WIDTH 14.3 % (11.6-16.5)
[2019-04-10] MEDS: FORTAZ or TAZICEF VIAL INJ IVP SCH (05:50)
[2019-04-10] MEDS: HumuLIN R SUBCUT SCH ×2 (05:53→11:28)
[2019-04-10 06:05] LABS: ALANINE AMINOTRANSFERASE 29 Units/L (12-78); ALBUMIN 2.7 g/dL (3.4-5.0); ALKALINE PHOSPHATASE 109 Units/L (46-116); ASPARTATE AMINO TRANSFERASE 27 Units/L (15-37); BLOOD UREA NITROGEN 12 mg/dL (7-18); CALCIUM 10.3 mg/dL (8.5-10.1); CARBON DIOXIDE 34.5 mmol/L (21-32); CHLORIDE 95 mmol/L (98-107); COR CA(FOR HYPOALB) 11.3 mg/dL (8.5-10.1); COR NA(FOR HYPERGLY) 137 mmol/L (136-145); CREATININE 0.74 mg/dL (0.70-1.30); SODIUM 135 mmol/L (136-145); TOTAL PROTEIN 8.9 g/dL (6.4-8.2); eGFR NON BLACK RACES > 60 (>60)
--- NOTE | 2019-04-10 07:42 | RAD ---
HISTORY: Numbness of breath Study: Single view chest Comparison: 04/09/2019 Findings: Single portable view is submitted. Cardiac life vest again partially obscures the chest. No new infiltrate, effusion or pneumothorax identified with stable mild interstitial prominence at the lung bases. Stable cardiomegaly. The soft tissues are unremarkable. IMPRESSION: 1. Stable chest without acute findings. Reported By:
[2019-04-10] MEDS: ROXICODONE TAB 15 MG PO PRN (08:19)
[2019-04-10] MEDS: VIBRAMYCIN 100 MG in D5W 250 ML IV 250 ML IV SCH (08:19)
[2019-04-10] MEDS: SYNTHROID 150 mcg TAB PO SCH (08:19)
[2019-04-10] MEDS: K-DUR TAB 20 MEQ PO SCH (08:20)
[2019-04-10] MEDS: LASIX PO SCH (08:20)
[2019-04-10] MEDS: LANOXIN PO SCH (08:21)
[2019-04-10] MEDS: LOVENOX INJ 40 MG SYR SC SCH (08:22)
[2019-04-10] MEDS: ZESTRIL TAB 10 MG PO SCH (08:22)
[2019-04-10] MEDS: COREG TAB 6.25 MG PO SCH (08:22)
[2019-04-10] MEDS: PEPCID TAB 20 MG PO SCH (08:22)
[2019-04-10] MEDS: ASPIRIN EC 81 MG PO SCH (08:22)
[2019-04-10] MEDS: JANUVIA PO SCH (08:22)
[2019-04-10] MEDS: CARDIZEM CD 180 MG PO SCH (08:23)
[2019-04-10] MEDS: HEMOCYTE-PLUS PO SCH (08:23)
[2019-04-10] MEDS: LEVEMIR SC SCH (08:24)
[2019-04-10] MEDS: NYSTATIN POWDER TOP SCH (08:26)
[2019-04-10] MEDS: CYMBALTA PO SCH (08:26)
[2019-04-10] MEDS: XOPENEX 1.25 MG/3 ML NEBULE NEB SCH ×2 (08:59→12:03)
[2019-04-10 13:37] VITALS: BP 120/62
[2019-04-10 18:01] LABS: ALBUMIN (SPEP) 2.93 g/dL (3.75-5.01); ALPHA-2 (SPEP) 1.01 g/dL (0.48-1.05); GAMMA (SPEP) 2.11 g/dL (0.62-1.51)
== END 2019-04-10 13:48 | DRG 193 ==
LOC: ER 17:58 → ICU 23:38
PROVIDERS: ADMIT Obstetrics & Gynecology Obstetrics; ATTEND Internal Medicine
DX: I25.10 Atherosclerotic heart disease of native coronary artery without angina pectoris; R94.31 Abnormal electrocardiogram [ECG] [EKG]; I10 Essential (primary) hypertension; E03.8 Other specified hypothyroidism; J44.9 Chronic obstructive pulmonary disease, unspecified; J96.21 Acute and chronic respiratory failure with hypoxia; R26.89 Other abnormalities of gait and mobility; R07.89 Other chest pain; J96.22 Acute and chronic respiratory failure with hypercapnia; R60.0 Localized edema; I48.2 Chronic atrial fibrillation; J18.8 Other pneumonia, unspecified organism
CPT/HCPCS: 36415; 36600; 71010; 71045; 80053; 80162; 81001; 82550; 82553; 82803; 83605; 83735; 84165; 84166; 84484; 85025; 86335; 87040; 87070; 87205; 93005; 93041; 94640; 96365; 96367; 96374; 96375; 97167; 99285; A4222; J0713; J1650; J1815; J2060; J2405; J3490; J7030; J7050; J7060